=== PATIENT | male | born 1960 | race Caucasian/White ===

== ENCOUNTER → 2017-02-21 | Outpatient (CLI) | payer OTHER ==
[2017-02-21 14:07] LABS: BLOOD UREA NITROGEN 20 mg/dl (7-18); BUN/CREATININE RATIO 16.5 (10-20)
[2017-02-21 14:12] LABS: CHOLESTEROL 225 mg/dl (0-200); CHOLESTEROL/HDL RATIO 7.3; HDL CHOLESTEROL 31 mg/dl; LDL CHOLESTEROL CALCULATED 140 mg/dl; PROSTATE SPECIFIC ANTIGEN 0.469 ng/ml (0.000-4.000); TRIGLYCERIDES 272 mg/dl (0-150); VERY LOW DENSITY LIPOPROT CALC 54 mg/dl
== END | disposition home or self-care (01) ==
LOC: C.LABBC 09:56
PROVIDERS: ATTEND Urology
DX: N40.1 Benign prostatic hyperplasia with lower urinary tract symptoms (principal); N52.9 Male erectile dysfunction, unspecified; E78.5 Hyperlipidemia, unspecified; Z11.59 Encounter for screening for other viral diseases

== ENCOUNTER 2025-01-27 10:39 | Inpatient (IN) ==
--- NOTE | 2025-01-27 11:32 | Emergency Department Note ---
History of Present Illness General Chief complaint: Pain (Generalized) Stated complaint: JOINT PAIN Time Seen by Provider: 01/27/25 11:14 History of Present Illness Provider complaint: myalgias Maximum Pain Intensity: 10 65-year-old male presents emergency department for myalgias. Patient states "every joint in my body is hurting". Patient reports bilateral elbow pain, bilateral wrist pain, bilateral knee pain, bilateral ankle pain, bilateral shoulder pain. Patient reports a sore throat. He reports a headache. He reports nausea. He reports no abdominal pain. Patient reports he was recently started on doxycycline for a tick bite. Patient states he took oxycodone but then became delirious. He reports a new rash on his upper extremities. Home Medications Medication Instructions Recorded Confirmed Type sertraline 100 mg tablet (Zoloft) 100 mg PO DAILY 07/24/23 01/27/25 History cyclobenzaprine 10 mg tablet 10 mg PO DAILY PRN muscle spasm, 10/20/24 01/27/25 Rx pain #90 tabs oxycodone 5 mg tablet 5 mg PO Q6H PRN pain #15 tabs 01/26/25 01/27/25 Rx albuterol sulfate 90 mcg/actuation 2 puff inhalation QID PRN Wheezing 01/27/25 01/27/25 History aerosol inhaler finasteride 5 mg tablet 5 mg PO DAILY 01/27/25 01/27/25 History sulindac 200 mg tablet 0 mg PO BID 01/27/25 01/27/25 History Allergies Allergy/AdvReac Type Severity Reaction Status Date / Time No Known Allergies Allergy Verified 01/02/25 09:35 Past Med/Surg History Problem List (Updated 01/27/25 @ 15:55 by Ej Veronica MD) At high risk for tick borne illness (Acute) Elevated troponin (Acute) Thrombocytopenia (Acute) Pancytopenia (Acute) Joint pain (Acute) Anaplasmosis (Acute) Arthritis Lumbar facet joint syndrome Arthralgia Hand arthritis Spinal stenosis of lumbar region Cervical spinal stenosis Lumbar radiculopathy Myofascial pain Cervical facet joint syndrome Cervicalgia History of left hip replacement August 2021 Dyslipidemia Anxiety Menieres disease BPH without obstruction/lower urinary tract symptoms (Acute) Hearing loss Erectile dysfunction (Acute) Medical History Tinnitus Surgical History History of prostate surgery S/P nasal surgery Family History Mother Diabetes Lung disease Father Depression Social History Smoking Status: Former smoker Tobacco Type: Cigarettes Do You Dip or Chew Tobacco: No; Hx Alcohol Use: No Preferred Language: Italian marital status: current occupational status: employed Feels Safe at Home: Yes Physical Exam Vital Signs Vital Signs - 24 hr 01/27/25 10:49 01/27/25 11:24 01/27/25 12:00 Temperature 37.6 C H Temperature Source Oral Pulse Rate 78 82 82 Respiratory Rate 20 30 H 15 Respiratory Effort / Characteristics Non-Labored Spontaneous Respiratory Depth Normal Respiratory Pattern Regular Blood Pressure 106/70 128/79 Blood Pressure Mean 82 86 Pulse Oximetry 96 96 Oxygen Delivery Method Room Air Sepsis Recent Fever Within 48 Hours No Sepsis New/Unexplained Change in Mental Status N/A Sepsis Action Taken by Nursing No Action Required 01/27/25 12:09 01/27/25 12:09 01/27/25 12:13 Temperature 37.0 C Temperature Source Oral Pulse Rate 88 Respiratory Rate 25 H Respiratory Effort / Characteristics Respiratory Depth Respiratory Pattern Blood Pressure 118/68 Blood Pressure Mean 81 Pulse Oximetry 98 95 Oxygen Delivery Method Room Air Sepsis Recent Fever Within 48 Hours Sepsis New/Unexplained Change in Mental Status Sepsis Action Taken by Nursing 01/27/25 12:44 01/27/25 13:37 Temperature Temperature Source Pulse Rate 91 H 82 Respiratory Rate 13 Respiratory Effort / Characteristics Respiratory Depth Respiratory Pattern Blood Pressure 94/61 L Blood Pressure Mean 72 Pulse Oximetry 94 Oxygen Delivery Method Sepsis Recent Fever Within 48 Hours Sepsis New/Unexplained Change in Mental Status Sepsis Action Taken by Nursing Physical Exam GENERAL: He is oriented to person, place, and time. He appears well-developed and well-nourished. HENT: Exam performed. - Head: Normocephalic and atraumatic. - Mouth/Throat: The oropharynx is clear and moist. No trismus in the jaw. No dental abscesses or uvula swelling. No oropharyngeal exudate or tonsillar abscesses. EYES: Conjunctivae and EOM are normal. Pupils are equal, round, and reactive to light. Right eye exhibits no discharge. Left eye exhibits no discharge. No scleral icterus. No photophobia. NECK: Normal range of motion. Neck supple. No JVD present. No rigidity. No tracheal deviation and normal range of motion present. No Brudzinski's sign. CV: Normal rate, regular rhythm, normal heart sounds and intact distal pulses. There is no peripheral edema. Palpable radial pulses bue. PULM/CHEST: Effort normal and breath sounds normal. No respiratory distress. No stridor. He has no wheezes. He has no rales. ABD: The abdomen is soft. There is no tenderness. There is no rebound, no guarding. NEURO: He is alert and oriented to person, place, and time. He has normal strength. No cranial nerve deficit or sensory deficit.GCS eye subscore is 4. GCS verbal subscore is 5. GCS motor subscore is 6. Cerebellar tests wnl. SKIN: Urticaria over the patient's left upper extremity. No purpural lesions. Course Course 1114: The patient was evaluated in room B7. A complete history and physical exam was performed Cardiac monitoring: An order was placed for continuous cardiac monitoring. The monitor shows a rate of 80 with sinus rhythm interpreted by me External medical records reviewed. Patient was seen in the emergency department yesterday. Patient had blood work done showed a mild leukopenia of 4.5 to a thrombocytopenia of 119/1.2 AST 49 ALT 102 alkaline phosphatase 238. Patient's procalcitonin was 0.52. Urinalysis was negative. Peripheral smear for anaplasmosis and babesiosis was negative as well as screen. Patient was continued on his doxycycline for presumed anaplasmosis. 1300: Vital signs stable. Labs show a worsening thrombocytopenia with platelet count down to 108 from 119 yesterday. Coagulation studies are within normal limits. High-sensitivity troponin up to 46.8 from 9.7 yesterday. Patient denies any chest pain. Liver function tests appear mildly improved with the ALT down to 78 from 102. Procalcitonin is elevated to 0.77 up from 0.52 today. Patient continues to have no meningeal signs. Given the patient's elevated procalcitonin and elevated troponin [facility] Rocephin and doxycycline ordered for the patient. Administered Medications Discontinued Medications Diphenhydramine HCl (Diphenhydramine 50 Mg/Ml Vial) 25 mg IV NOW STA Stop: 01/27/25 11:35 Last Admin: 01/27/25 11:57 Dose: 25 mg Documented By: KAILEY Sodium Chloride (Nss) 1,000 mls @ 999 mls/hr IV .Q1H1M ONE Stop: 01/27/25 12:17 Last Infusion: 01/27/25 13:32 Dose: Infused Documented By: Admin: 01/27/25 11:56 Dose: 999 mls/hr Documented By: KAILEY Acetaminophen (Ofirmev) 1,000 mg in 100 mls @ 400 mls/hr IV NOW STA Stop: 01/27/25 12:01 Last Infusion: 01/27/25 13:07 Dose: Infused Documented By: Admin: 01/27/25 11:56 Dose: 400 mls/hr Documented By: KAILEY Ceftriaxone Sodium (Rocephin) 2,000 mg in 50 mls @ 100 mls/hr IV NOW STA Stop: 01/27/25 13:23 Last Infusion: 01/27/25 13:49 Dose: Infused Documented By: Admin: 01/27/25 13:14 Dose: 100 mls/hr Documented By: KAILEY Doxycycline Hyclate 100 mg/ (Dextrose) 100 mls @ 50 mls/hr IV NOW STA Stop: 01/27/25 14:53 Last Infusion: 01/27/25 15:38 Dose: Infused Documented By: Admin: 01/27/25 13:37 Dose: 50 mls/hr Documented By: KAILEY Ketorolac Tromethamine (Ketorolac Tromethamine 15 Mg/Ml Vial) 15 mg IV NOW STA Stop: 01/27/25 11:35 Last Admin: 01/27/25 11:58 Dose: 15 mg Documented By: KAILEY Metoclopramide HCl (Metoclopramide Hcl Inj 5 Mg/Ml 2 Ml Vial) 5 mg IV ONE ONE Stop: 01/27/25 11:35 Last Admin: 01/27/25 11:58 Dose: 5 mg Documented By: KAILEY Medical Decision Making Laboratory Data Attestation: I reviewed the patient's lab results. 01/27/25 11:30 01/27/25 11:30 Lab Results 07/15/25 07/15/25 07/15/25 Range/Units 11:30 11:33 13:42 WBC 5.31 (4.8-10.8) K/ul RBC 4.32 L (4.70-6.10) M/uL Hgb 12.9 L (14.0-18.0) g/dl Hct 37.7 L (42.0-52.0) % MCV 87.3 (80.0-100.0) fL MCH 29.9 (25.0-34.0) pg MCHC 34.2 (32.0-36.0) g/dL RDW Std Deviation 43.4 (36.4-46.3) fL RDW Coeff of Robb 13.6 (11.5-14.5) % Plt Count 108 L (130-400) K/uL MPV 9.9 (9.4-12.4) fL Immature Gran % (Auto) 0.6 % Neut % (Auto) 79.0 % Lymph % (Auto) 9.8 % Garden % (Auto) 6.8 % Eos % (Auto) 3.6 % Baso % (Auto) 0.2 % Neut # (Auto) 4.20 (1.40-6.50) K/uL Lymph # (Auto) 0.52 L (1.20-3.40) K/uL Garden # (Auto) 0.36 (0.11-0.59) K/uL Eos # (Auto) 0.19 (0.00-0.50) K/uL Baso # (Auto) 0.01 (0.00-0.20) K/uL Immature Gran # (Auto) 0.03 (0.01-0.20) K/uL PT Cancelled 11.7 INR Cancelled 1.1 APTT Cancelled 39 H PTT Ratio Cancelled 1.4 Sodium 134 L (136-145) mmol/L Potassium 4.4 (3.5-5.1) mmol/L Chloride 99 (98-107) mmol/L Carbon Dioxide 27 (21-32) mmol/L Anion Gap 8 (3-11) BUN 17 (6-23) mg/dl Creatinine 1.10 (0.6-1.4) mg/dl Est Cr Clr Drug Dosing 92.2 ml/min eGFR 74.50 BUN/Creatinine Ratio 15.5 (10-20) Glucose 107 H (70-99(Fasting)) mg/dl Lactate 1.6 (0.4-2.0) mmol/L Calcium 8.9 (8.6-10.3) mg/dl Magnesium 2.1 (1.7-2.4) mg/dl Total Bilirubin 0.9 (0.2-1.0) mg/dl Direct Bilirubin 0.3 H (0-0.2) mg/dl AST 38 (13-39) U/L ALT 78 H (7-52) U/L Alkaline Phosphatase 235 H (34-104) U/L Lactate Dehydrogenase 360 H (86-244) U/L Total Creatine Kinase 99 (30-223) U/L Troponin I High Sens 46.8 H D 61.9 H* D (0-20) pg/ml Total Protein 7.2 (6.0-8.3) gm/dl Albumin 3.7 (3.4-5.0) gm/dl Procalcitonin 0.77 H (0-0.5) ng/ml Adenovirus (PCR) Not Detected (NotDetected) Anaplasma Smear See Comment Babesia Smear See Comment B. pertussis DNA (PCR) Not Detected (NotDetected) B.parapertussis DNA PCR Not Detected (NotDetected) C. pneumoniae DNA (PCR) Not Detected (NotDetected) Coronavirus OC43 (PCR) Not Detected (NotDetected) Coronavirus HKU1 (PCR) Not Detected (NotDetected) Coronavirus 229E (PCR) Not Detected (NotDetected) SARS-CoV-2 (PCR) Not Detected (NotDetected) Coronavirus NL63 (PCR) Not Detected (NotDetected) Monoscreen Negative (Negative) Human Metapneumovir PCR Not Detected (NotDetected) Influenza Type A (PCR) Not Detected (NotDetected) Influenza Type B (PCR) Not Detected (NotDetected) M. pneumoniae (PCR) Not Detected (NotDetected) Parainfluenza 1 (PCR) Not Detected (NotDetected) Parainfluenza 2 (PCR) Not Detected (NotDetected) Parainfluenza 3 (PCR) Not Detected (NotDetected) Parainfluenza 4 (PCR) Not Detected (NotDetected) RSV (PCR) Not Detected (NotDetected) Entero/Rhino (PCR) Not Detected (NotDetected) Group A Strep (PCR) NOT DETECTED (NotDetected) Imaging Data Attestation: I personally reviewed and interpreted this imaging study as follows: My Impression: Chest x-ray negative. Airway clear. No pneumothorax. No consolidation. No cardiomegaly or cephalization.. No free air under the diaphragm. No fractures of the skeletal structures. Radiologist's Impression: Chest X-Ray 01/27/25 11:17 XR chest 1V portable CLINICAL HISTORY: Sepsis COMPARISON STUDY: 01/26/2025 FINDINGS: Heart size and pulmonary vasculature are normal. No consolidation or pleural effusion. No pneumothorax. IMPRESSION: No acute findings. ACT 112: Negative or not required by law. Electronically signed by: Gibson Donato M.D. 01/27/2025 11:[address] 01/27/25 11:39 CT head/brain wo con CLINICAL HISTORY: davidson. TECHNIQUE: Multiple axial CT images of the head were obtained without contrast. A dose lowering technique was utilized adhering to the principles of ALARA. CT DOSE: 625.8 mGy.cm COMPARISON: 11/18/2021 FINDINGS: Stable left globus pallidus calcification. No intracranial hemorrhage seen. No mass effect, midline shift, or hydrocephalus. Visualized paranasal sinuses and mastoid air cells are clear. No skull fracture seen. IMPRESSION: No acute findings. ACT 112: Negative or not required by law. The above report was generated using voice recognition software. It may contain grammatical, syntax or spelling errors. Electronically signed by: Gibson Donato M.D. 01/27/2025 12:31 PM ECG Data Attestation: I personally reviewed and interpreted this ECG as follows: Rate (beats per minute): 79 Rhythm: + normal sinus ECG Intervals/blocks: + First degree AV block, + Normal QRS and + Normal QT-c ECG ST segments: + Normal ST segments MDM Narrative 1114: The patient was evaluated in room B7. A complete history and physical exam was performed Cardiac monitoring: An order was placed for continuous cardiac monitoring. The monitor shows a rate of 80 with sinus rhythm interpreted by me External medical records reviewed. Patient was seen in the emergency department yesterday. Patient had blood work done showed a mild leukopenia of 4.5 to a thrombocytopenia of 119/1.2 AST 49 ALT 102 alkaline phosphatase 238. Patient's procalcitonin was 0.52. Urinalysis was negative. Peripheral smear for anaplasmosis and babesiosis was negative as well as screen. Patient was continued on his doxycycline for presumed anaplasmosis. 1300: Vital signs stable. Labs show a worsening thrombocytopenia with platelet count down to 108 from 119 yesterday. Coagulation studies are within normal limits. High-sensitivity troponin up to 46.8 from 9.7 yesterday. Patient denies any chest pain. Liver function tests appear mildly improved with the ALT down to 78 from 102. Procalcitonin is elevated to 0.77 up from 0.52 today. Patient continues to have no meningeal signs. Given the patient's elevated procalcitonin and elevated troponin [facility] Rocephin and doxycycline ordered for the patient. Impression & Plan Thrombocytopenia, Elevated troponin, At high risk for tick borne illness Discharge Plan Visit Data Chief Complaint: Pain (Generalized) Stated Complaint: JOINT PAIN ED Provider: Ej Veronica Discharge Problem: Thrombocytopenia, Elevated troponin, At high risk for tick borne illness Patient Disposition: Admitted As Inpatient Condition: Fair Discharge Instructions Interventions: ED Discharge Assessment Last Done: 01/27/25 14:55
--- NOTE | 2025-01-27 11:49 | XRay Report ---
XR chest 1V portable CLINICAL HISTORY: Sepsis COMPARISON STUDY: 01/26/2025 FINDINGS: Heart size and pulmonary vasculature are normal. No consolidation or pleural effusion. No p neumothorax. IMPRESSION: No acute findings. ACT 112: Negative or not required by law. Electronically signed by: Gibson Donato M.D. 01/27/2025 11:47 AM
[2025-01-27] MEDS: SODIUM CHLORIDE 0.9% 1,000 ML IV ONE (11:56)
[2025-01-27] MEDS: ACETAMINOPHEN 1,000 MG/100 ML VIAL IV STA (11:56)
[2025-01-27] MEDS: diphenhydrAMINE 50 MG/ML VIAL IV STA (11:57)
[2025-01-27] MEDS: METOCLOPRAMIDE HCL INJ 5 MG/ML 2 ML VIAL IV ONE (11:58)
[2025-01-27] MEDS: KETOROLAC TROMETHAMINE 15 MG/ML VIAL IV STA (11:58)
[2025-01-27 12:19] LABS: Alanine Aminotransferase 78.0 U/L (7-52); Alkaline Phosphatase 235.0 U/L (34-104); Anion Gap 8.0 (3-11); Bilirubin,Total 0.9 mg/dl (0.2-1.0); Blood Urea Nitrogen 17.0 mg/dl (6-23); Calcium 8.9 mg/dl (8.6-10.3); Carbon Dioxide 27.0 mmol/L (21-32); Chloride 99.0 mmol/L (98-107); Creatine Kinase 99.0 U/L (30-223); Creatinine Clr Calc Pharmacy 92.2 ml/min; Glucose 107.0 mg/dl (70-99(Fasting)); Magnesium 2.1 mg/dl (1.7-2.4); Potassium 4.4 mmol/L (3.5-5.1); Sodium 134.0 mmol/L (136-145); Total Protein 7.2 gm/dl (6.0-8.3)
--- NOTE | 2025-01-27 12:32 | CT Scan Report ---
CT head/brain wo con CLINICAL HISTORY: davidson. TECHNIQUE: Multiple axial CT images of the head were obtained without contrast. A dose lowering tech nique was utilized adhering to the principles of ALARA. CT DOSE: 625.8 mGy.cm COMPARISON: 11/18/2021 FINDINGS: Stable left globus pallidus calcification. No intracranial hemorrhage seen. No mass effect, midline shift, or hydrocephalus. Visualized paranasal sinuses and mastoid air cells are clear. No sk ull fracture seen. IMPRESSION: No acute findings. ACT 112: Negative or not required by law. The above report was generated using voice recognition software. It may contain grammatical, syntax o r spelling errors. Electronically signed by: Gibson Donato M.D. 01/27/2025 12:31 PM
[2025-01-27 12:37] LABS: Hematocrit (blood only) 37.7 % (42.0-52.0); Hemoglobin 12.9 g/dl (14.0-18.0); Mean Corpuscular Hemoglobin 29.9 pg (25.0-34.0); Mean Corpuscular Volume 87.3 fL (80.0-100.0); Platelet Count 108 K/uL (130-400); RDW Standard Deviation 43.4 fL (36.4-46.3); Red Blood Count 4.32 M/uL (4.70-6.10); White Blood Count 5.31 K/ul (4.8-10.8)
[2025-01-27 12:45] LABS: Immature Granulocytes # (auto) 0.03 K/uL (0.01-0.20); Immature Granulocytes % (auto) 0.6 %
[2025-01-27 12:49] LABS: Chlamydia pneumoniae PCR Not Detected (NotDetected); Coronavirus 229E PCR Not Detected (NotDetected); Coronavirus CoV-2 (COVID19)PCR Not Detected (NotDetected); Coronavirus HKU1 PCR Not Detected (NotDetected); Coronavirus NL63 PCR Not Detected (NotDetected); Coronavirus OC43PCR Not Detected (NotDetected); Human Metapneumovirus PCR Not Detected (NotDetected); Parainfluenza Virus 1 PCR Not Detected (NotDetected); Parainfluenza Virus 2 PCR Not Detected (NotDetected); Parainfluenza Virus 3 PCR Not Detected (NotDetected); Parainfluenza Virus 4 PCR Not Detected (NotDetected); Respiratory Syncytial VirusPCR Not Detected (NotDetected); Rhinovirus/Enterovirus PCR Not Detected (NotDetected)
[2025-01-27] MEDS: cefTRIAXone SODIUM 2,000 MG/50 ML BAG IV STA (13:14)
--- NOTE | 2025-01-27 13:25 | History & Physical Report ---
Date of Service January 27, 2025 Assessment & Plan (1) Fever and chills: (2) Arthralgia: (3) Pancytopenia: (4) At high risk for tick borne illness: Plan 65 y/o with polyarthralgias/myalgias and fevers to 101, pharyngitis, rash, headache. Started . Seen in urgent care Sunday started doxycycline suspected tickborne illness. No improvement, seen in ED yesterday. 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 Rash started after taking the doxy but has not been outside and is in non sun-exposed areas. Rash not itchy or painful no vesicles. Located R>L neck, upper back and chest, arms and thighs, no palm/soles lesions. No sick contacts. No GI or illness in past month, no penile discharge. Has had neck pain and headache but no meningeal signs on exam. # acute illness with fever, arthralgias/myalgias, headache, rash, pancytopenia. Tmax at home 101 and yesterday in ED 38.0 does not look severely ill based on vital signs and labs, but is extremely miserable with the arthralgias/myalgias. CK was low, not in rhabdo probably viral infection but could be tickborne. -consulted ID -APAP/toradol/tramadol/IV fluids. oxycodone 5 mg made him feel loopy viral - -influenza and COVID biofire negative, monospot negative -could be adenovirus -EBV and CMV serology -parvovirus B19 serology -acute HIV could present this way tickborne - expect rash with Ehrlichiosis or RMSF, anaplasmosis/babesiosis PCR pending, lyme screen neg -cont doxycycline -its possible the rash is from doxycycline since it started after the doxy could be strep pharyngitis with scarlet fever. meningococcal meningitis seems less likely and the neck pain is not very specific because he has pain all over, but consider LP. does not look like endocarditis or septic arthritis (has L hip replacement) DGI rash doesn't really look like this -rapid strep was negative, blood cultures pending -continue ceftriaxone takes sertraline, serotonin syndrome possible but doesn't explain the overall pattern well reactive arthritis - seems unlikely - no antecendent GI/ illness and wouldn't expect rash, sore throat path review blood smear pending. no renal failure, thrombocytopenia mild, rash is not characteristic, TTP unlikely. # mildly elevated HS-troponin, normal EKG - myocardial demand ischemia related to above acute illness. No chest pain and no e/o ACS -check another troponin since still trending up # history of widespread myofascial pain syndrome, osteoarthritis - has been seen by Rheumatology and followed by pain management #BPH - continue finasteride #mood disorder - continue sertraline DVT ppx - SCDs. start chemoppx if platelets stable and staying in hospital >24h History of Present Illness Chief Complaint: myalgias/arthralgias Primary Care Provider: NO PCP 65 y/o with polyarthralgias/myalgias and fevers to 101, pharyngitis, rash, headache. Arthralgia/myalgia and fever/chills started . Seen in urgent care Sunday started doxycycline suspected tickborne illness. Rash developed over the weekend, after starting doxycycline but has not been in sun. No improvement, seen in ED yesterday. 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 Rash not itchy or painful no vesicles. Located R>L neck, upper back and chest, arms and thighs, no palm/soles lesions. No sick contacts. No GI or illness in past month. Has neck pain and headache. Rocephin and doxy given in ED Allergies Allergy/AdvReac Type Severity Reaction Status Date / Time No Known Allergies Allergy Verified 01/02/25 09:35 Home Medications Medication Instructions Recorded Confirmed Type sertraline 100 mg tablet (Zoloft) 100 mg PO DAILY 07/24/23 01/27/25 History cyclobenzaprine 10 mg tablet 10 mg PO DAILY PRN muscle spasm, 10/20/24 01/27/25 Rx pain #90 tabs oxycodone 5 mg tablet 5 mg PO Q6H PRN pain #15 tabs 01/26/25 01/27/25 Rx albuterol sulfate 90 mcg/actuation 2 puff inhalation QID PRN Wheezing 01/27/25 01/27/25 History aerosol inhaler finasteride 5 mg tablet 5 mg PO DAILY 01/27/25 01/27/25 History sulindac 200 mg tablet 0 mg PO BID 01/27/25 01/27/25 History Past Med/Surg History Problem List (Updated 01/27/25 @ 20:41 by Jenn Spivey MD) Fever and chills At high risk for tick borne illness (Acute) Elevated troponin (Acute) Thrombocytopenia (Acute) Pancytopenia (Acute) Joint pain (Acute) Anaplasmosis (Acute) Arthritis Lumbar facet joint syndrome Arthralgia Hand arthritis Spinal stenosis of lumbar region Cervical spinal stenosis Lumbar radiculopathy Myofascial pain Cervical facet joint syndrome Cervicalgia History of left hip replacement August 2021 Dyslipidemia Anxiety Menieres disease BPH without obstruction/lower urinary tract symptoms (Acute) Hearing loss Erectile dysfunction (Acute) Medical History Tinnitus Surgical History History of prostate surgery S/P nasal surgery Family History Mother Diabetes Lung disease Father Depression Social History Smoking Status: Former smoker Tobacco Type: Cigarettes Smoking End Date: 1995; Do You Dip or Chew Tobacco: No; Hx Alcohol Use: No Hx Substance Use: No Preferred Language: Bruneian Communication Ability: Effective 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 he has some aphthous ulcers on his lower inner lip, he has pharyngeal erythema without swelling RESP: normal WOB, CTAB CV: reg no mrg ABD: soft/nt/nd +BT : no lanier SKIN: warm and dry, papular rash Located R>L neck, upper back and chest, arms and thighs, no palm/soles lesions, no vesicles or pustules no joint effusions appreciated NEURO: AOx person, place, and situation. Face symmetric, speech normal, moves 4 ext spontaneously and equally. has full range of motion of his neck [id number] and chin to chest, his neck muscles are sore but no evidence of meningismus, can touch knees to chest without increase in pain Results & Data Results & Data Vital Signs (Past 12 Hours) Vital Signs Temp Pulse Resp BP Pulse Ox O2 Del Method 01/27/25 12:44 91 H 01/27/25 12:09 37.0 C 01/27/25 12:09 98 Room Air 01/27/25 12:00 82 15 128/79 96 01/27/25 11:24 82 30 H 01/27/25 10:49 37.6 C H 78 20 106/70 96 Room Air Laboratory Results 01/27/25 11:30 01/27/25 11:30 Platelets slightly decreased from yesterday HS-trop 9.7 --> 47 overnight Procal 0.52-->0.77 overnight Lyme negative, mesfin/bab smears negative Resp biofire negative Diagnostic Findings Head CT with no acute findings CXR - personally reviewed film and agree it is clear EKG - personally reviewed tracing - normal EKG PG Care Time/CCT Total # of Minutes Spent Total Time Spent with Patient: Total time spent is greater than 50% in coordination of care (as documented) at patient's floor/unit and/or counseling patient: Coding Level of Care Code 17991 INT INP/OBS CARE 3/75MIN Diagnoses Fever and chills R50.9 Arthralgia M25.50 Pancytopenia D61.818 At high risk for tick borne illness Z91.89
[2025-01-27] MEDS: DOXYCYCLINE HYCLATE 100 MG in DEXTROSE 5% MINI-B 100 ML IV STA (13:37)
--- NOTE | 2025-01-27 13:58 | Electrocardiogram Report ---
Test Reason : Blood Pressure : */* mmHG Vent. Rate : 79 BPM Atrial Rate : 79 BPM P-R Int : 204 ms QRS Dur : 92 ms QT Int : 340 ms P-R-T Axes : 40 17 26 degrees QTcB Int : 389 ms Normal sinus rhythm Normal ECG When compared with ECG of 26-Jan-2025 12:27, No significant change was found Confirmed by Tevin Mcguire ([id number]) on 01/27/2025 1:58:35 PM Referred By: REFERRED SELF Confirmed By: Tevin Mcguire
[2025-01-27 14:26] LABS: INR 1.1 (0.9-1.1); Partial Thromboplastin Time 39 Seconds (21-31); Prothrombin Time 11.7 Seconds (9.0-12.0)
[2025-01-27] MEDS ORDERED: KETOROLAC TROMETHAMINE 15 MG/ML VIAL IM PRN (15:38)
[2025-01-27] MEDS ORDERED: ALBUTEROL HFA 8 GM INHALER INH PRN (15:38)
[2025-01-27] MEDS ORDERED: ALUMINUM/MAGNESIUM SUSP 30 ML UDC PO PRN (15:38)
[2025-01-27] MEDS ORDERED: MAGNESIUM HYDROXIDE SUSP 30 ML UDC PO PRN (15:38)
[2025-01-27] MEDS: ACETAMINOPHEN 325 MG TAB PO SCH (16:42)
[2025-01-27 17:23] LABS: EBV Nuclear Antigen IgG Ab Positive; EBV Nuclear Antigen IgG Quant > 600.0 U/mL (< 18.0)
[2025-01-27 17:24] LABS: EBV Early Antigen IgG Ab Negative (Negative); EBV Early Antigen IgG Quant 5.5 U/mL (< 9.0)
[2025-01-27 17:25] LABS: EBV IgG Quant 190.0 U/mL (< 18.0); EBV IgM Quant < 10.0 U/mL (< 36.0)
[2025-01-27] MEDS: CHLORASEPTIC (PHENOL) 1.4% SOLN 180 ML BTL MT PRN (18:02)
[2025-01-27 18:38] LABS: Appearance Urine Clear (Clear); Glucose Urine UA Negative (Negative)
[2025-01-27] MEDS: ONDANSETRON INJ 2 MG/ML 2 ML VIAL IV PRN (20:12)
[2025-01-27] MEDS: DOXYCYCLINE HYCLATE 100 MG in DEXTROSE 5% MINI-B 100 ML IV SCH (20:13)
[2025-01-27] MEDS: MELATONIN 3 MG TAB PO PRN (20:23)
[2025-01-28 04:24] LABS: Alanine Aminotransferase 66.0 U/L (7-52); Albumin Globulin Ratio 1.1 (0.9-2); Alkaline Phosphatase 200.0 U/L (34-104); Anion Gap 6.0 (3-11); Bilirubin,Total 0.8 mg/dl (0.2-1.0); Blood Urea Nitrogen 22.0 mg/dl (6-23); Calcium 7.9 mg/dl (8.6-10.3); Carbon Dioxide 25.0 mmol/L (21-32); Chloride 98.0 mmol/L (98-107); Creatinine Clr Calc Pharmacy 89.5 ml/min; Globulin 2.8 gm/dl (2.5-4.0); Glucose 113.0 mg/dl (70-99(Fasting)); Potassium 4.2 mmol/L (3.5-5.1); Sodium 129.0 mmol/L (136-145); Total Protein 5.8 gm/dl (6.0-8.3)
[2025-01-28 04:39] LABS: Hematocrit (blood only) 31.0 % (42.0-52.0); Hemoglobin 10.6 g/dl (14.0-18.0); Mean Corpuscular Hemoglobin 30.0 pg (25.0-34.0); Mean Corpuscular Volume 87.8 fL (80.0-100.0); Platelet Count 86 K/uL (130-400); RDW Standard Deviation 45.0 fL (36.4-46.3); Red Blood Count 3.53 M/uL (4.70-6.10); White Blood Count 3.77 K/ul (4.8-10.8)
[2025-01-28 04:55] LABS: Dohle Bodies 1+; Immature Granulocytes # (auto) 0.04 K/uL (0.01-0.20); Immature Granulocytes % (auto) 1.1 %
[2025-01-28] MEDS: SERTRALINE HCL 100 MG TABLET PO SCH (08:15)
[2025-01-28] MEDS: FINASTERIDE 5 MG TAB PO SCH (08:15)
[2025-01-28] MEDS: CYCLOBENZAPRINE HCL 10 MG TAB PO PRN (08:17)
[2025-01-28] MEDS: POLYETHYLENE (MIRALAX) 17 GM PACK PO PRN (08:18)
[2025-01-28] MEDS: KETOROLAC TROMETHAMINE 15 MG/ML VIAL IV PRN (10:13)
[2025-01-28 11:49] LABS: Hep B Core Total Antibody Negative (Negative)
[2025-01-28 12:03] LABS: Hep B Surface Ag with confirm Negative (Negative)
[2025-01-28 12:09] LABS: Hep C Ab Rflx HepCQuant RNA Negative (Negative)
[2025-01-28 12:16] LABS: Treponema pallidum RflxConfirm Negative (Negative)
[2025-01-28] MEDS: cefTRIAXone SODIUM 2,000 MG/50 ML BAG IV SCH (12:50)
--- NOTE | 2025-01-28 13:14 | Electrocardiogram Report ---
Test Reason : Blood Pressure : */* mmHG Vent. Rate : 84 BPM Atrial Rate : 84 BPM P-R Int : 196 ms QRS Dur : 104 ms QT Int : 350 ms P-R-T Axes : 56 43 32 degrees QTcB Int : 413 ms Normal sinus rhythm Normal ECG When compared with ECG of 27-Jan-2025 12:03, No significant change was found Confirmed by Tevin Mcguire ([id number]) on 01/28/2025 1:13:39 PM Referred By: REFERRED SELF Confirmed By: Tevin Mcguire
--- NOTE | 2025-01-28 13:30 | Infectious Disease Consult ---
Date of Consultation January 28, 2025 Assessment & Plan (1) Fever and chills: (2) Thrombocytopenia: (3) Pancytopenia: (4) Joint pain: (5) Arthralgia: Plan ID Problem List: # Fever, arthralgias/myalgias # Rash # Sore throat # Elevated transaminases # Pancytopenia # History of widespread myofascial pain syndrome, osteoarthritis follows with rheumatology and pain management # History of positive RF (76) in 05/2023 Impression: Jarvis Campbell is a 65-year-old man with history of OA s/p L hip replacement 2020 and arthralgais of bilateral hands/feet presumed to be from OA (though follows with rheum, history of + rheumatoid factor), chronic cervical pain undergoing trigger point injections, BPH, who presents to [facility] on 01/26 with polyarthralgias, myalgias, fevers, and rash, after having recently been started on doxycycline on Sat 01/24 for suspected tickborne illness. ID is consulted for fever and rash. The patient began having fevers, chills, polyarthralgias, and myalgias, starting on 01/22, and he reports that his symptoms came on very rapidly. This progressed to include significant sweating and shaking. He was seen in urgent care on Sat 01/24 and was started on doxycycline for suspected tickborne illness. He developed a sore throat over the weekend (he believes after doxycycline) where he feels 10/10 pain with swallowing and also feels like his lips are slightly painful. He also developed neck pain and a headache. He also developed a rash over the weekend (after having started doxycycline) but reports that he has not been in direct sun. The rash is located in his R > L neck, upper back, and chest, trunk, arms, and thighs (including areas that were covered by clothing); no lesions on palms/soles, nonpruritic, non-painful, and without vesicles. He has continued to have fevers (Tmax 101F at home) and his rash did not improve. He has been on doxycycline since 01/24 and has continued to take this medication without improvement. In the ED, T38, WBC 4.52 (ALC low at 270) Hgb 13.9 plt 119 Cr 1.12 AST 49 ALT 102 procal 1.10. CK 85. UA with 0-5 WBCs, 0-2 RBCs. EKG with NSR, ND [address] head without acute findings, CXR clear. He was started on ceftriaxone and continued on doxycycline. Also with mildly elevated troponin, currently attributed to demand ischemia. On 01/28, T37.4 in AM, his labs showed worsening pancytopenia with WBC 3.77 (ALC 300) Hgb 10.6 plt 86. AST 40 ALT 66 ALP 200. He reports that he feels much worse since his symptoms started, and has significant aching pains in every joint especially his bilateral shoulders, hips, and knees, to the point that it is difficult to walk. Reports a dry cough, some nausea but no abdominal pain or diarrhea; no chest pain, no numbness and tingling; some dizziness. He has ongoing throat pain and profuse sweating. He is frequently outdoors[place] He recalls several mosquito bites. Has not noticed any tick bites. 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 No sick contacts, no contact with young children. He is currently sexually active with his girlfriend, who is a new partner as of ~5 months prior (last sexually active 01/16). No GI/ symptoms in the past month, no penile discharge. He has a pet dog; no other exposure to animals including no livestock or wild animals. No recent travel out of the [facility]. He last hunted during deer season (May 2024) and last [place] 01[place]. The patient was evaluated by outpatient rheumatology starting in 05/2023 for 8 years of pain of multiple joints, including the L > R hips (s/p L hip replacement in 2020), and pain in the bilateral hands and bilateral feet. He has been presumed to have osteoarthritis, however testing in 2022 did show a pos itive rheumatoid factor (76) raising questions about underlying rheumatoid arthritis. He has been having axial neck tenderness, undergoing trigger point injections to his cervical muscles (01/02/25 underwent ropivacaine/Kenalog/ketorolac injections to his left upper cervical paravertebral, left scalene, left levator scapulae, mid trapezius, right cervical paravertebral, right scalene, and right trapezius muscles). Discussion The patient presents with fevers, diffuse arthralgias/myalgias, sore throat, headaches, rash, and sweating, of unclear etiology. The fevers are low-grade. He has pancytopenia with mild leukopenia and significant thrombocytopenia. Normal CK. Exam from 01/28 showing maculopapular rash, especially confluent in neck (sparing face) and shoulders; more distinct scattered lesions on trunk, chest, upper thighs. Nonpruritic/nontender. Sparing palms and soles. Hands with swollen appearance. Bilateral knees very tender to palpation but without obvious joint effusion/swelling/erythema. Maybe bottom lip is a bit swollen, no oropharyngeal erythema. The cause of this patients presentation is currently unclear. Ddx includes tickborne illness (though no improvement and having worsening after several days of doxycycline), viral infection, atypical bacterial/fungal infection, reactive arthritis (though no specific GI/ symptoms recently), other rheumatologic/inflammatory process (noting pt with chronic arthritis and cervical pain and has a history of + RF) including adult-onset Stills disease. Pt with new girlfriend of ~5 months and thus will send for HIV and STI testing including GC/CT mycoplasma. His presentation seems less likely to represent a serious typical bacterial infection/bacterial sepsis, given that it has occurred for many days and that he is otherwise clinically stable (albeit highly symptomatic). Thus far, workup includes negative Lyme screen, negative Anaplasma/Babesia sm ear, negative HIV, negative monospot, and negative rapid Strep. Many infectious studies are still pending as below. The patients fingers appear to have dactylitis. Given the patients history of chronic arthritis (attributed to OA, but with + RF and with worsening axial/cervical symptoms recently), suspect that the patient could have an underlying rheumatologic condition such as RA. Also consider possibility of adult-onset Stills disease, and would recommend rheumatology evaluation. Can continue ceftriaxone and doxycycline for now, but may stop ceftriaxone in the coming 1-2 days if BCx remain NGTD. Considered that patient is not currently covered for babesiosis, though it would not explain all of the patients symptoms (sore throat, rash, etc.). If ongoing fevers, consider CT C/A/P for further evaluation. though pt does not have specific localizing symptoms. Recommendations: - Continue ceftriaxone for now, likely stop if BCx remain NGTD for 48h - Continue doxycycline for now - Send HIV/HIV RNA, Histo UrAg, Syphilis Ab, Rickettsial panel, HCV Ab, hep B testing, WNV serum IgM and PCR, GC/CT urine, Mycoplasma genitalium, JC, ANCA, RF, ferritin - F/u: Babesia PCR, parvovirus B19 Ab, CMV Ab, Q fever Ab - If ongoing fevers, consider CT C/A/P - Recommend rheumatology consult including for evaluation of possible Stills disease ID will continue to follow. Ernestine Burgess MD, S Infectious Diseases [facility] Connect direct line: [phone] Consultation Information Consultation was provided via telemedicine using two-way real-time interactive telecommunication between the patient and the telemedicine provider. For the duration of the visit, the provider was performing the assessment from a different facility than the patient. This includesuse of bluetooth stethoscope forauscultationperformed by the telepresenter that the telemedicine provider can hear if described in the physical exam. [facility] contact information: Please call [facility] Call Center . (Phone Number For Physician Use Only) After establishing a telemedicine visit, patient was: Patient was verified with two unique identifiers, Patient/authorized rep acknowledged consent and understanding and Gave permission to continue telehealth session Time Spent with Patient: Initial => 75 min History of Present Illness Reason for Consultation: Fever and rash Attending Physician: Kourtney Man MD History of Present Illness Jarvis Campbell is a 65-year-old man with history of OA s/p L hip replacement 2020 and arthralgais of bilateral hands/feet presumed to be from OA (though follows with rheum, history of + rheumatoid factor), chronic cervical pain undergoing trigger point injections, BPH, who presents to [facility] on 01/26 with polyarthralgias, myalgias, fevers, and rash, after having recently been started on doxycycline on Sat 01/24 for suspected tickborne illness. ID is consulted for fever and rash. The patient began having fevers, chills, polyarthralgias, and myalgias, starting on 01/22, and he reports that his symptoms came on very rapidly. This progressed to include significant sweating and shaking. He was seen in urgent care on Sat 01/24 and was started on doxycycline for suspected tickborne illness. He developed a sore throat over the weekend (he believes after doxycycline) where he feels 10/10 pain with swallowing and also feels like his lips are slightly painful. He also developed neck pain and a headache. He also developed a rash over the weekend (after having started doxycycline) but reports that he has not been in direct sun. The rash is located in his R > L neck, upper back, and chest, trunk, arms, and thighs (including areas that were covered by evelin thing); no lesions on palms/soles, nonpruritic, non-painful, and without vesicles. He has continued to have fevers (Tmax 101F at home) and his rash did not improve. He has been on doxycycline since 01/24 and has continued to take this medication without improvement. In the ED, T38, WBC 4.52 (ALC low at 270) Hgb 13.9 plt 119 Cr 1.12 AST 49 ALT 102 procal 1.10. CK 85. UA with 0-5 WBCs, 0-2 RBCs. EKG with NSR, ND [address] head without acute findings, CXR clear. He was started on ceftriaxone and continued on doxycycline. Also with mildly elevated troponin, currently att ributed to demand ischemia. On 01/28, T37.4 in AM, his labs showed worsening pancytopenia with WBC 3.77 (ALC 300) Hgb 10.6 plt 86. AST 40 ALT 66 ALP 200. He reports that he feels much worse since his symptoms started, and has significant aching pains in every joint especially his bilateral shoulders, hips, and knees, to the point that it is difficult to walk. Reports a dry cough, some nausea but no abdominal pain or diarrhea; no chest pain, no numbness and tingling; some dizziness. He has ongoing throat pain and profuse sweating. He is frequently outdoors. [place]. He recalls several mosquito bites. Has not noticed any tick bites. 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 No sick contacts, no contact with young children. He is currently sexually active with his girlfriend, who is a new partner as of ~5 months prior (last sexually active 01/16). No GI/ symptoms in the past month, no penile discharge. He has a pet dog; no other exposure to animals including no livestock or wild animals. No recent travel out of the [facility]. He last hunted during deer season (May 2024) and last went kayaking in [facility] over 01/16 weekend. The patient was evaluated by outpatient rheumatology starting in 05/2023 for 8 years of pain of multiple joints, including the L > R hips (s/p L hip replacement in 2020), and pain in the bilateral hands and bilateral feet. He has been presumed to have osteoarthritis, however testing in 2022 did show a positive rheumatoid factor (76) raising questions about underlying rheumatoid arthritis. He has been having axial neck tenderness, undergoing trigger point injections to his cervical muscles (01/02/25 underwent ropivacaine/Kenalog/ketorolac injections to his left upper cervical paraverteb ral, left scalene, left levator scapulae, mid trapezius, right cervical paravertebral, right scalene, and right trapezius muscles). Allergies Allergy/AdvReac Type Severity Reaction Status Date / Time No Known Allergies Allergy Verified 01/02/25 09:35 Home Medications Medication Instructions Recorded Confirmed Type sertraline 100 mg tablet (Zoloft) 100 mg PO DAILY 07/24/23 01/27/25 History cyclobenzaprine 10 mg tablet 10 mg PO DAILY PRN muscle spasm, 10/20/24 01/27/25 Rx pain #90 tabs oxycodone 5 mg tablet 5 mg PO Q6H PRN pain #15 tabs 01/26/25 01/27/25 Rx albuterol sulfate 90 mcg/actuation 2 puff inhalation QID PRN Wheezing 01/27/25 01/27/25 History aerosol inhaler finasteride 5 mg tablet 5 mg PO DAILY 01/27/25 01/27/25 History sulindac 200 mg tablet 0 mg PO BID 01/27/25 01/27/25 History Patient History Medical History Tinnitus Surgical History History of prostate surgery S/P nasal surgery Family History Mother Diabetes Lung disease Father Depression Social History Smoking Status: Former smoker Tobacco Type: Cigarettes Smoking End Date: 1995; Do You Dip or Chew Tobacco: No; Hx Alcohol Use: No Hx Substance Use: No Preferred Language: Belarusian Communication Ability: Effective Toucher Up Required: No Beliefs That Will Affect Care: None marital status: Current Living Situation: Alone current occupational status: employed Other Information That Helps Us Care for You: Yes (Left hip replacement in 2021.) Feels Safe at Home: Yes Safety Concerns: Feels Safe At This Time Assistive Devices: None Physical Exam Physical Exam: Exam obtained with assistance of an in-person telepresenter General: Uncomfortable-appearing, no acute distress, diaphoretic HEENT: Conjunctivae non-injected, sclerae anicteric, MMM. Perhaps bottom lip is a bit swollen, no oropharyngeal erythema or lesions. No thrush. Resp: Respirations nonlabored. Abd: Soft, nontender, nondistended. Back: No tenderness to palpation along spine Ext: Bilateral knees very tender to palpation but without obvious joint effusion/swelling/erythema. Skin: Maculopapular rash, especially confluent in neck (sparing face) and shoulders; more distinct scattered lesions on trunk, chest, upper thighs. Nonpruritic/nontender. Sparing palms and soles. Bilateral hands appear swollen. Neuro: Alert & interactive. Grossly non-focal. Psych: Pleasant, appropriate. Results & Data Vital Signs (Past 12 Hours) Vital Signs Temp Pulse Pulse Resp BP Pulse Ox O2 Del Method 01/28/25 12:53 36.7 C 75 16 92/58 L 98 Room Air 01/28/25 08:12 37.1 C 80 16 104/64 98 Room Air 01/28/25 07:30 Room Air 01/28/25 07:10 37.4 C 82 19 108/68 98 Room Air Diagnostic Findings Micro Data: 01/28 Histo UrAg: PEND 01/28 JC: PEND; ANCA: PEND; RF: PEND 01/28 GC/CT urine: PEND 01/28 Syphilis Ab: PEND 01/28 HIV: neg 01/28 WNV Ab: PEND; WNV PCR: PEND 01/28 Q fever Ab (repeat): PEND 01/28 Typhus fever Ab (repeat): PEND 01/28 Rickettsial Ab panel: PEND 01/28 M. genitalium ANNE: PEND 01/28 hep C Ab: PEND 01/28 hep B core total Ab: neg; HBsAg: PEND; HBsAb: PEND 01/27 parvovirus Ab: PEND 01/27 CMV Ab: PEND 01/27 Babesia/Anaplasma smear: neg 01/26 Babesia/Anaplasma smear: neg 01/27 RVP: neg 01/27 group A Strep throat swab: neg 01/27 EBV Ab: Capsid IgG positive, capsid IgM neg, early Ag IgG neg, EBNA IgG positive 01/27 mono screen: neg 01/27 BCx x2: NGTD 01/26 Ehrlichia PCR: PEND 01/26 Babesia PCR: PEND 01/26 Lyme screen: neg 01/26 Typhus fever Ab: PEND 01/26 Q fever Ab: PEND Antibiotic Summary: ceftriaxone (01/27 present) doxycycline (01/24 present)
[2025-01-28] MEDS: OPTIRAY 320 100ml IV ONE (14:26)
[2025-01-28 14:41] LABS: Ferritin 1219.5 ng/ml (8-388)
--- NOTE | 2025-01-28 14:45 | CT Scan Report ---
ABDOMEN AND PELVIS CT WITH IV CONTRAST CT DOSE: 1493.32 mGy.cm HISTORY: febrile illness, elevated LFTs TECHNIQUE: Multiaxial CT images of the abdomen and pelvis were performed following the IV administrat ion of 94 cc of Optiray, A dose lowering technique was utilized adhering to the principles of ALARA. COMPARISON STUDY: None FINDINGS: The lung bases demonstrates changes consistent with UIP. There are no focal liver lesions identified. The portal vein is patent. There is no ascites. The gall bladder and bile ducts are unremarkable. There are no adrenal, pancreatic, or renal lesions are identified. There is no hydronephrosis. There is splenomegaly. There is a tiny calcification in the spleen is most likely a small granuloma. There is no aortic aneurysm or periaortic adenopathy. No bowel obstruction or free air. There is colonic diverticulosis with no evidence of diverticulitis or colitis. In the pelvis, the appendix is normal. There is no fluid in the cul-de-sac. Unopacified urinary bladd er is grossly negative although visualization is hampered by spray artifact from a left hip prosthesi s. IMPRESSION: Nonspecific splenomegaly. Bibasilar lung changes consistent with UIP. ACT 112: Negative or not required by law. The above report was generated using voice recognition software. It may contain grammatical, syntax o r spelling errors. Electronically signed by: Pippa Rodriguez M.D. 01/28/2025 2:43 PM
--- NOTE | 2025-01-28 15:56 | XCELERA ---
[id number]
--- NOTE | 2025-01-28 16:07 | Hospitalist Progress Note ---
Date of Service January 28, 2025 Assessment & Plan (1) Fever and chills: (2) Arthralgia: (3) Pancytopenia: (4) At high risk for tick borne illness: Plan 65 y/o with polyarthralgias/myalgias and fevers to 101, pharyngitis, rash, headache. Started . Seen in urgent care Sunday started doxycycline suspected tickborne illness, started doxycycline with no improvement, seen in ED yesterday. 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 Rash started after taking the doxy but has not been outside and is in non sun-exposed areas. Rash not itchy or painful no vesicles. Located R>L neck, upper back and chest, arms and thighs, no palm/soles lesions. No sick contacts. No GI or illness in past month, no penile discharge. Has had neck pain and headache but no meningeal signs on exam. # acute illness with fever, arthralgias/myalgias, headache, rash, pancytopenia. Tmax at home 101 and yesterday in ED 38.0 does not look severely ill based on vital signs and labs, but is extremely miserable with the arthralgias/myalgias. CK was low, not in rhabdo. probably viral infection but could be tickborne. Consulted ID - ddx includes tickborn illness, viral infection, atypical bacterial/fungal infection, reactive arthritis or other rheumatologic process - concern for rheumatologic process with + RF, ? Stills disease - STI testing pending Rheumatology consulted Blood cultures negative at 24 hours - continue ceftriaxone under negative x 48 hours Peripheral smear unrevealing -APAP/toradol/tramadol/IV fluids. oxycodone 5 mg made him feel loopy viral - -influenza and COVID biofire negative, monospot negative. EBV indicative of past infection. HIV negative Pending: CMV serology, parvovirus B19 serology -acute HIV could present this way tickborne - expect rash with Ehrlichiosis or RMSF, anaplasmosis/babesiosis PCR pending, lyme screen neg Doxycyline stopped. Started empiric azithromycin and atoviquone for possible babieosis #thrombocytosis, elevated LDH, elevated LFTs and with drop in hgb, concern for hemolysis empiric babesiosis tx as above trend CBC and CMP #hyponatremia likely related to acute illness hydrate with NSS trend with AM labs # mildly elevated HS-troponin, normal EKG - myocardial demand ischemia related to above acute illness. No chest pain and no e/o ACS Troponin peaked at 435, echo without Regional wall motion abnormalities. Patient reports normal heart cath 07/2024 at [facility] # history of widespread myofascial pain syndrome, osteoarthritis - has been seen by Rheumatology and followed by pain management #BPH - continue finasteride #mood disorder - continue sertraline DVT ppx - SCDs. avoiding chemical with dropping platelets at this time Dispo: continued inpatient stay for further workup and rheumatology consultation Discussed case with ID and rheum Admission and Anticipated Discharge Date Admission Date: January 27, 2025 Supervising Physician Co-Signing Physician Notes PA Supervision Note: I did not personally see or examine the patient today, but I verified all bell points of LATESHA Damon's assessment and plan with the following exceptions/additions: None Subjective Patient seen lying in bed - looks very uncomfortbale. Reporting pain all over lots of chills and sweats has been on doxycyline for 5 days without improvement poor appetite but has been eating Recent cardiac workup including cath - did not require stents or any medication changes Review of Systems Review of Systems: All systems reviewed & are unremarkable except as noted in Subjective Physical Exam Physical Exam: General: NAD, VS as above HEENT: MM moist, no leisions or erythema in the oral cavity Resp: normal respiratory effort, lungs clear to auscultation CV: RRR, no murmur, Abd: normal bowel sounds, non tender, no hepatosplenomegaly Extremities: Moves all extremities, no edema Neuro: A&O x3, Skin: intact, diaphoretic. Rash more prevalent on the top of his chest, with some spots on his anterior thighs Results & Data Results & Data Vital Signs (Past 12 Hours) Vital Signs Temp Pulse Pulse Resp BP Pulse Ox O2 Del Method 01/28/25 15:12 97.3 F L 69 18 100/63 97 Room Air 01/28/25 12:53 98.1 F 75 16 92/58 L 98 Room Air 01/28/25 08:12 98.8 F 80 16 104/64 98 Room Air 01/28/25 07:30 Room Air 01/28/25 07:10 99.3 F 82 19 108/68 98 Room Air Laboratory Results CBC and chemistry reviewed Troponin reviewed, LDH reviewed CRP and ESR reviewed [facility] Diagnostic Findings CT A/P reviewed PG Care Time/CCT Total # of Minutes Spent Total Time Spent with Patient: Total time spent is greater than 50% in coordination of care (as documented) at patient's floor/unit and/or counseling patient: Coding Level of Care Code 24283 SUB INP/OBS CARE 3/50MIN Diagnoses Fever and chills R50.9 Arthralgia M25.50 Pancytopenia D61.818 At high risk for tick borne illness Z91.89
[2025-01-28] MEDS: SODIUM CHLORIDE 0.9% 1,000 ML IV SCH (18:31)
[2025-01-28] MEDS: AZITHROMYCIN 500 MG/255 ML BAG IV SCH (18:31)
[2025-01-28] MEDS: ATOVAQUONE 750 MG/5 ML UDC PO SCH (18:32)
--- NOTE | 2025-01-28 21:28 | Rheumatology Consultation ---
Rheumatology Consultation DOS January 28, [address] Man Reason for Consultation systemic inflammatory process Assessment & Plan (1) Arthralgia: Joint pain location: unspecified Qualified Code(s): M25.50 - Pain in unspecified joint (2) Fever and chills: (3) Myalgia: (4) Rash: (5) Pancytopenia: (6) LFT elevation: Plan This patient is experiencing systemic inflammatory process. Timeline is suggestive of an infectious type process whether it be viral, tickborne, or othe r. He did not respond to doxycycline and antibiotics have been adjusted Await additional data with the ID workup and tests that are currently pending Timeline is a bit abrupt for Adult Onset Stills Disease and often leukocytosis will be seen. Also, do not identify periodic fevers documented since admission. However with his rash, arthralgias and LFTs, will keep Stills in mind moving forward pending results of additional diagnostic testing. Need to monitor CBC. Current pancytopenia likely a result of potential infectious process, but if worsening counts are noted, consider bone marrow bi opsy. [facility]H often will have a higher ferritin but if he declines and counts remain poor, may need to pursue bone marrow and further investigation into bone marrow etiologies His previous rheumatoid factor is noted but this is not a presentation of rheumatoid arthritis. ANCA serologies are pending but at this time, and I do not identify features concerning for systemic vasculitis such as lung disease, hemoptysis, hematuria, purpuric rash, mononeuritis multiplex, etc. Please call with questions or concerns, happy to discuss further if helpful. Time spent with the care of the patient today including chart review, obtaining history, examining patient, discussing treatment plan, and documenting in the electronic health record: 75 History of Present Illness Attending Physician: Kourtney Man MD History of Present Illness This patient is a 65-year-old gentleman who was in his usual state of health until the evening of 01/22 when he developed arthralgias, myalgias, and nausea. He awoke on the morning of 01/23 with widespread arthralgias involving essentially every joint. His face felt flushed and burning but he did not appreciate a fever at the time. Went to bed that night and began developing shivering and shaking. He woke up overnight soaked in drenched with sweat. He had ongoing arthralgias involving essentially every joint. The morning of 01/24, he woke up and went to urgent care and was given antibiotics in the form of doxycycline. That evening, could not sleep due to discomfort with the arthralgias. On 01/26 he presented to the ER due to ongoing arthralgias and myalgias. He received Rocephin and was discharged to home. Based on ongoing symptoms the following day, he came back to the ER and was admitted. Received Rocephin and IV doxycycline in the ER setting. On 01/26, he developed rashes on his neck, upper arms, abdomen, and upper legs. He reports difficulty with headaches since the onset of the symptoms. He has developed recently sore throat and sore tongue. He has had ongoing nausea. He denies joint swelling but admits that his hands feel a bit tight when making a fist. Has pain in muscles and joints. This evening, he notes slight regression in symptoms but has continued discomfort in several areas of his body. He is having difficulty sleeping secondary to discomfort. He denies chest pain. Denies cough. No hemoptysis. No hematuria. He denies recent travel. Denies new medications. Denies sick contacts. I know him from my outpatient practice. He has been evaluated for arthralgias. Rheumatoid factor was identified to be 76 however, he has lacked inflammatory joint features and thus, does not have a diagnosis of rheumatoid arthritis. Radiographs and evaluation have been consistent with osteoarthritis and he has responded to NSAIDs. Allergies Allergy/AdvReac Type Severity Reaction Status Date / Time No Known Allergies Allergy Verified 01/02/25 09:35 Home Medications Medication Instructions Recorded Confirmed Type sertraline 100 mg tablet (Zoloft) 100 mg PO DAILY 07/24/23 01/27/25 History cyclobenzaprine 10 mg tablet 10 mg PO DAILY PRN muscle spasm, 10/20/24 01/27/25 Rx pain #90 tabs oxycodone 5 mg tablet 5 mg PO Q6H PRN pain #15 tabs 01/26/25 01/27/25 Rx albuterol sulfate 90 mcg/actuation 2 puff inhalation QID PRN Wheezing 01/27/25 01/27/25 History aerosol inhaler finasteride 5 mg tablet 5 mg PO DAILY 01/27/25 01/27/25 History sulindac 200 mg tablet 0 mg PO BID 01/27/25 01/27/25 History Patient History Medical History (Updated 01/28/25 @ 21:19 by Jose Rivera DO) LFT elevation Rash Tinnitus Surgical History History of prostate surgery S/P nasal surgery Family History Mother Diabetes Lung disease Father Depression Social History Smoking Status: Former smoker Tobacco Type: Cigarettes Smoking End Date: 1995; Do You Dip or Chew Tobacco: No; Hx Alcohol Use: No Hx Substance Use: No Preferred Language: French Communication Ability: Effective Tube Teller Required: No Beliefs That Will Affect Care: None marital status: Current Living Situation: Alone current occupational status: employed Other Information That Helps Us Care for You: Yes (Left hip replacement in 2021.) Feels Safe at Home: Yes Safety Concerns: Feels Safe At This Time Assistive Devices: None Physical Exam Physical Exam: General: Uncomfortable Eyes: No scleritis Mouth: Erythema soft palate but no significant ulcerative change Cardiovascular: Heart regular, no rubs Pulmonary: Clear to auscultation Abdomen: Soft, nontender. Do not appreciate obvious organomegaly. Distant bowel sounds Skin: Macular rash upper arms and thighs. Do not identify purpuric lesions. Musculoskeletal: No pronounced knee effusions and knees are cool to touch. There is some diffuse, mild swelling to the hands without discrete swelling at MCP and PIPs. No MTP swelling. Results & Data Vital Signs (Past 12 Hours) Vital Signs Temp Pulse Pulse Resp BP Pulse Ox O2 Del Method 01/28/25 15:12 36.3 C L 69 18 100/63 97 Room Air 01/28/25 12:53 36.7 C 75 16 92/58 L 98 Room Air Results CMP Results: Sodium 129 mmol/L (136-145) L 01/28/25 Potassium 4.2 mmol/L (3.5-5.1) 01/28/25 Chloride 98 mmol/L (98-107) 01/28/25 Carbon Dioxide 25 mmol/L (21-32) 01/28/25 Anion Gap 6 (3-11) 01/28/25 BUN 22 mg/dl (6-23) 01/28/25 Creatinine 1.12 mg/dl (0.6-1.4) 01/28/25 eGFR 72.90 01/28/25 Est GFR ( Amer) 79.2 ml/min 01/22/24 Est GFR (Non-Af Amer) 68 05/27/24 BUN/Creatinine Ratio 19.6 (10-20) 01/28/25 Glucose 113 mg/dl (70-99(Fasting)) H 01/28/25 Calcium 7.9 mg/dl (8.6-10.3) L 01/28/25 Total Bilirubin 0.8 mg/dl (0.2-1.0) 01/28/25 Direct Bilirubin 0.3 mg/dl (0-0.2) H 01/28/25 AST 40 U/L (13-39) H 01/28/25 ALT 66 U/L (7-52) H 01/28/25 Alkaline Phosphatase 200 U/L (34-104) H 01/28/25 Total Protein 5.8 gm/dl (6.0-8.3) L 01/28/25 Albumin 3.0 gm/dl (3.4-5.0) L 01/28/25 Globulin 2.8 gm/dl (2.5-4.0) 01/28/25 Albumin/Globulin Ratio 1.1 (0.9-2) 01/28/25 Lactate Dehydrogenase 303 U/L (86-244) H 01/28/25 Results Rheum Results - ESR: ESR 64 mm/hr (0-20) H 01/28/25 11:55 Results Rheum Results - CRP: CRP 26.65 mg/dl (0-0.5) H 01/28/25 11:55 Results CBC w Diff Results: RBC 3.53 M/uL (4.70-6.10) L 01/28/25 WBC 3.77 K/ul (4.8-10.8) L 01/28/25 Hgb 10.6 g/dl (14.0-18.0) L 01/28/25 Hct 31.0 % (42.0-52.0) L 01/28/25 MCV 87.8 fL (80.0-100.0) 01/28/25 MCH 30.0 pg (25.0-34.0) 01/28/25 MCHC 34.2 g/dL (32.0-36.0) 01/28/25 RDW Standard Deviation 45.0 fL (36.4-46.3) 01/28/25 RDW Coefficient of Variation 14.0 % (11.5-14.5) 01/28/25 Plt Count 86 K/uL (130-400) L 01/28/25 MPV 10.2 fL (9.4-12.4) 01/28/25 Neutrophils (%) (Auto) 78.1 % 01/28/25 Lymphocytes (%) (Auto) 8.0 % 01/28/25 Monocytes # (Auto) 0.26 K/uL (0.11-0.59) 01/28/25 Eosinophils # (Auto) 0.21 K/uL (0.00-0.50) 01/28/25 Immature Granulocyte % (Auto) 1.1 % 01/28/25 Neutrophils # (Auto) 2.95 K/uL (1.40-6.50) 01/28/25 Lymphocytes # (Auto) 0.30 K/uL (1.20-3.40) L 01/28/25 Monocytes # (Auto) 0.26 K/uL (0.11-0.59) 01/28/25 Eosinophils # (Auto) 0.21 K/uL (0.00-0.50) 01/28/25 Basophils # (Auto) 0.01 K/uL (0.00-0.20) 01/28/25 Immature Granulocyte # (Auto) 0.04 K/uL (0.01-0.20) 5 Tear Drop Cells 1+ 01/26/25 Dohle Bodies 1+ 01/28/25 Results Urinalysis: Urine Color Yellow 01/27/25 Urine Appearance Clear (Clear) 01/27/25 Urine pH 5.5 (4.5-7.5) 01/27/25 Ur Specific [place] 1.016 (1.000-1.030) 01/27/25 Urine Protein Negative (Negative) 01/27/25 Urine Glucose (UA) Negative (Negative) 01/27/25 Urine Ketones Negative (Negative) 01/27/25 Urine Blood Negative (Negative) 01/27/25 Urine Nitrite Negative (Negative) 01/27/25 Urine Bilirubin Negative (Negative) 01/27/25 Urine Urobilinogen Negative (Negative) 01/27/25 Ur Leukocyte Esterase Negative (Negative) 01/27/25 Urine WBC (Auto) 0-5 /hpf (0-5) 01/26/25 Urine RBC (Auto) 0-2 /hpf (0-2) 01/26/25 Urine Hyaline Casts (Auto) 3-5 /lpf (0-2) H 01/26/25 Urine Epithelial Cells (Auto) 3-5 /hpf (0-2) H 01/26/25 Urine Bacteria (Auto) None Seen (None Seen) 01/26/25 Urine Culture: No Data to Display PG Care Time/CCT Total # of Minutes Spent Total Time Spent with Patient: Total time spent is greater than 50% in coordination of care (as documented) at patient's floor/unit and/or counseling patient: Coding Level of Care Code 26536 IN/OBS CONSULT LVL 4,60M Diagnoses Arthralgia, unspecified joint M25.50 Joint pain location: unspecified Fever and chills R50.9 Myalgia M79.10 Rash R21 Pancytopenia D61.818 LFT elevation R79.89
[2025-01-28] MEDS: diphenhydrAMINE Capsule 25 MG CAP PO ONE (22:20)
[2025-01-28] MEDS: LIDOCAINE VISCOUS 2% 15 ML UDC MT ONE (22:20)
[2025-01-29] MEDS: MELATONIN 3 MG TAB PO ONE (00:46)
[2025-01-29] MEDS: LIDOCAINE VISCOUS 2% 15 ML UDC MT ONE (06:00)
[2025-01-29 08:45] LABS: Hematocrit (blood only) 32.6 % (42.0-52.0); Hemoglobin 11.4 g/dl (14.0-18.0); Immature Granulocytes # (auto) 0.05 K/uL (0.01-0.20); Immature Granulocytes % (auto) 1.5 %; Mean Corpuscular Hemoglobin 30.4 pg (25.0-34.0); Mean Corpuscular Volume 86.9 fL (80.0-100.0); Platelet Count 85 K/uL (130-400); RDW Standard Deviation 43.0 fL (36.4-46.3); Red Blood Count 3.75 M/uL (4.70-6.10); White Blood Count 3.25 K/ul (4.8-10.8)
[2025-01-29 09:02] LABS: Alanine Aminotransferase 65.0 U/L (7-52); Albumin Globulin Ratio 1.0 (0.9-2); Alkaline Phosphatase 227.0 U/L (34-104); Anion Gap 9.0 (3-11); Bilirubin,Total 0.7 mg/dl (0.2-1.0); Blood Urea Nitrogen 19.0 mg/dl (6-23); Calcium 8.4 mg/dl (8.6-10.3); Carbon Dioxide 23.0 mmol/L (21-32); Chloride 97.0 mmol/L (98-107); Creatinine Clr Calc Pharmacy 105.5 ml/min; Globulin 3.2 gm/dl (2.5-4.0); Glucose 101.0 mg/dl (70-99(Fasting)); Magnesium 2.0 mg/dl (1.7-2.4); Potassium 4.1 mmol/L (3.5-5.1); Sodium 129.0 mmol/L (136-145); Total Protein 6.4 gm/dl (6.0-8.3)
[2025-01-29] MEDS: METOPROLOL TARTRATE 1 MG/ML VIAL IV STA (09:15)
[2025-01-29] MEDS ORDERED: STAT IV Infusion **Titration per Protocol STA (09:20)
[2025-01-29] MEDS: HEPARIN 25000 UNIT/500 ML D5W 25,000 UNITS/500 ML BAG IV SCH (09:56)
[2025-01-29] MEDS: Heparin IV Adult Wt-Based Low-Dose *NO* INITIAL Bolus Protocol IV STA (10:00)
--- NOTE | 2025-01-29 11:56 | Cardiology Consultation ---
Date of Consultation January 29, 2025 Assessment & Plan (1) Atrial fibrillation, new onset: (2) Atrial fibrillation with RVR: (3) Elevated troponin: (4) Acute febrile illness: (5) SIRS (systemic inflammatory response syndrome): Plan Mr. Campbell is a 65-year-old male with a history of Hyperlipidemia, BPH, Anxiety, Meniere's Disease, and Lumbar Spinal Stenosis who was admitted to [facility] on 01/27/25 with an acute febrile illness and SIRS. Patient was in his usual state of health until the evening of 01/22/25 when he developed arthralgias, myalgias, and nausea. He awoke on the morning of 01/23/25 with widespread arthralgias involving every joint. His face felt flushed and burning but he did not appreciate a fever at the time. He went to bed that night and began developing shivering and shaking. He woke up overnight soaked in drenched with sweat. He had ongoing arthralgias involving essentially every joint. The morning of 01/24/25, he woke up and went to urgent care and was given Doxycycline. That evening, could not sleep due to discomfort with the arthralgias. On 01/26/25 he presented to the ER due to ongoing arthralgias and myalgias. He received Rocephin and was discharged to home. Based on his ongoing symptoms the following day, he came back to the ER and was admitted. Received Rocephin and IV Doxycycline in the ER. On 01/26/25 he developed rashes on his neck, upper arms, abdomen, chest, and upper legs. He has also had headaches since the onset of the symptoms. More recently he has developed a sore throat and sore tongue. He has had ongoing nausea. He denies joint swelling but admits that his hands feel a tight when making a fist. He has pain in his muscles and joints. This morning, he has had some improvement in his symptoms but has continued discomfort in several areas of his body. He is having difficulty sleeping secondary to discomfort. Earlier today the patient developed New Onset Atrial Fibrillation with RVR. He has minimal symptoms other than feeling that his chest feels flushed. Patient has not had any palpitations, tachy palpitations, shortness of breath, or any chest discomfort. He denies any vomiting, diaphoresis, or dyspnea. He denies any prior cardiac history or prior cardiac events. Echocardiogram performed 01/28/2025 shows normal LV size, wall motion, and systolic function, LVEF 60% to 65%, mild mitral regurgitation, borderline left atrial enlargement, borderline aortic root dilatation. Laboratories show hemoglobin 11.4, hematocrit 32.6, white blood cell count of 3.25, and platelet count of 85,000. Sodium 129 mmol/L, potassium 4.1 mmol/L, BUN 19 mg/dL creatinine 0.95 mg/dL. High sensitivity troponin I levels 46.8, 61.9, 448.0, 435.1 pg/mL, and 280.9 pg/mL. 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 Patient's LFTs are elevated and his inflammatory markers are elevated. C-reactive protein is 29.70 mg/dL and sedimentation rate is 64 mm/hr. We discussed what atrial fibrillation is, the natural history of atrial fibrillation, and we discussed various management strategies. His atrial fibrillation is likely secondary to his acute febrile illness/SIRS. We discussed the importance of anticoagulation, and we discussed the importance of controlling his ventricular response rate. In all likelihood he will spontaneously convert back to a normal sinus rhythm during this hospitalization. Recommend the followin. Continue Heparin drip, convert to Eliquis 5 mg b.i.d. at the time of discharge. 2. IV Cardizem 10 mg now, followed by Cardizem drip. 3. IV Lopressor 5 mg as needed. 4. Continue treatment of underlying acute febrile illness. Thank you for asking us to see this patient in consultation. We will continue to follow him while hospitalized. History of Present Illness Reason for Consultation: -- New onset Atrial Fibrillation with RVR. Requesting Physician: Kourtney Man MD Attending Physician: Tevin Mcguire MD History of Present Illness Mr. Campbell is a 65-year-old male with a history of Hyperlipidemia, BPH, Anxiety, Meniere's Disease, and Lumbar Spinal Stenosis who was admitted to [facility] on 01/27/25 with an acute febrile illness and SIRS. Patient was in his usual state of health until the evening of 01/22/25 when he developed arthralgias, myalgias, and nausea. He awoke on the morning of 01/23/25 with widespread arthralgias involving every joint. His face felt flushed and burning but he did not appreciate a fever at the time. He went to bed that night and began developing shivering and shaking. He woke up overnight soaked in drenched with sweat. He had ongoing arthralgias involving essentially every joint. The morning of 01/24/25, he woke up and went to urgent care and was given Doxycycline. That evening, could not sleep due to discomfort with the arthralgias. On 01/26/25 he presented to the ER due to ongoing arthralgias and myalgias. He received Rocephin and was discharged to home. Based on his ongoing symptoms the following day, he came back to the ER and was admitted. Received Rocephin and IV Doxycycline in the ER. On 01/26/25 he developed rashes on his neck, upper arms, abdomen, chest, and upper legs. He has also had headaches since the onset of the symptoms. More recently he has developed a sore throat and sore tongue. He has had ongoing nausea. He denies joint swelling but admits that his hands feel a tight when making a fist. He has pain in his muscles and joints. This morning, he has had some improvement in his symptoms but has continued discomfort in several areas of his body. He is having difficulty sleeping secondary to discomfort. Earlier today the patient developed New Onset Atrial Fibrillation with RVR. He has minimal symptoms other than feeling that his chest feels flushed. Patient has not had any palpitations, tachy palpitations, shortness of breath, or any chest discomfort. He denies any vomiting, diaphoresis, or dyspnea. He denies any prior cardiac history or prior cardiac events. Echocardiogram performed 01/28/2025 shows normal LV size, wall motion, and systolic function, LVEF 60% to 65%, mild mitral regurgitation, borderline left atrial enlargement, borderline aortic root dilatation. Laboratories show hemoglobin 11.4, hematocrit 32.6, white blood cell count of 3.25, and platelet count of 85,000. Sodium 129 mmol/L, potassium 4.1 mmol/L, BUN 19 mg/dL creatinine 0.95 mg/dL. High sensitivity troponin I levels 46.8, 61.9, 448.0, 435.1 pg/mL, and 280.9 pg/mL. 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 Patient's LFTs are elevated and his inflammatory markers are elevated. C-reactive protein is 29.70 mg/dL and sedimentation rate is 64 mm/hr. PMSHx: -- Hyperlipidemia. -- BPH s/p prostate surgery. -- Anxiety. -- Meniere's Disease. -- Lumbar Spinal Stenosis. -- Nasal surgery. -- s/p Left SALAZAR. Social History: -- He is , lives alone. -- Former smoker, quit in 1995. Family History: -- Father lived with depression. -- Mother with diabetes and lung disease. Allergies Allergy/AdvReac Type Severity Reaction Status Date / Time No Known Allergies Allergy Verified 01/02/25 09:35 Home Medications Medication Instructions Recorded Confirmed Type sertraline 100 mg tablet (Zoloft) 100 mg PO DAILY 07/24/23 01/27/25 History cyclobenzaprine 10 mg tablet 10 mg PO DAILY PRN muscle spasm, 10/20/24 01/27/25 Rx pain #90 tabs oxycodone 5 mg tablet 5 mg PO Q6H PRN pain #15 tabs 01/26/25 01/27/25 Rx albuterol sulfate 90 mcg/actuation 2 puff inhalation QID PRN Wheezing 01/27/25 01/27/25 History aerosol inhaler finasteride 5 mg tablet 5 mg PO DAILY 01/27/25 01/27/25 History sulindac 200 mg tablet 0 mg PO BID 01/27/25 01/27/25 History Patient History Medical History (Updated 01/29/25 @ 12:21 by Josh Ott PA-C) LFT elevation Rash Tinnitus Surgical History History of prostate surgery S/P nasal surgery Family History Mother Diabetes Lung disease Father Depression Social History Smoking Status: Former smoker Tobacco Type: Cigarettes Smoking End Date: 1995; Do You Dip or Chew Tobacco: No; Hx Alcohol Use: No Hx Substance Use: No Preferred Language: Bulgarian Communication Ability: Effective 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 Physical Exam Physical Exam: Blood pressure is 124/67, pulse is 124 and irregularly irregular. GENERAL: Patient appears acutely ill. HEENT: Head is atraumatic, normocephalic. EOM's intact. Facies symmetric. No perioral cyanosis. NECK: No JVD. JVP is not elevated. Carotid upstrokes are + 2 bilaterally. No bruits. CHEST/LUNGS: Clear to auscultation throughout all lung kumar. No wheezes, rales, or crackles. CVS: S1 and S2 are irregularly irregular and tachycardic. No murmurs, gallops, or rubs. PMI is nonpalpable. No lifts, heaves, or thrills. No abdominal aortic or renal bruits. ABDOMINAL EXAM: Bowel sounds are present. EXTREMITIES: No clubbing or cyanosis. No edema. Extremities are well perfused. NEUROLOGIC EXAM: Patient is awake, alert, and oriented. Pleasant and cooperative. Answers questions appropriately. Speech is clear. TELEMETRY: -- Atrial fibrillation with RVR. Results & Data Vital Signs (Past 12 Hours) Vital Signs Temp Pulse Pulse Pulse Resp BP BP 01/29/25 11:01 01/29/25 10:46 36.8 C 120 H 18 91/59 L 01/29/25 09:37 115 H 124/67 01/29/25 09:15 137 H 105/69 01/29/25 08:00 36.7 C 152 H 18 109/70 Pulse Ox O2 Del Method O2 Flow Rate 01/29/25 11:01 Nasal Cannula 2 01/29/25 10:46 94 Nasal Cannula 2 01/29/25 09:37 01/29/25 09:15 01/29/25 08:00 94 Room Air Laboratory Results Laboratory Results - last 24 hr 01/27/25 01/28/25 01/28/25 11:30 10:46 11:55 WBC RBC Hgb Hct MCV MCH MCHC RDW Std Deviation RDW Coeff of Robb Plt Count MPV Immature Gran % (Auto) Neut % (Auto) Lymph % (Auto) [place] % (Auto) Eos % (Auto) Baso % (Auto) Neut # (Auto) Lymph # (Auto) [place] # (Auto) Eos # (Auto) Baso # (Auto) Immature Gran # (Auto) Peripher Smr Path Cons ESR 64 H Sodium Potassium Chloride Carbon Dioxide Anion Gap BUN Creatinine Est Cr Clr Drug Dosing eGFR BUN/Creatinine Ratio Glucose Osmolality Calcium Magnesium Ferritin 1219.5 H Total Bilirubin AST ALT Alkaline Phosphatase Lactate Dehydrogenase 303 H C-Reactive Protein 26.65 H Total Protein Albumin Globulin Albumin/Globulin Ratio Treponema pallidum Ab Negative C.trachomatis RNA U Histopl Galactoman Ag HIV-1 RNA copies/mL Pending HIV-1 RNA logcopies/mL Pending N.gonorrhoeae RNA 01/28/25 01/29/25 01/29/25 21:05 07:18 09:39 WBC 3.25 L RBC 3.75 L Hgb 11.4 L Hct 32.6 L MCV 86.9 MCH 30.4 MCHC 35.0 RDW Std Deviation 43.0 RDW Coeff of Robb 13.6 Plt Count 85 L MPV 10.8 Immature Gran % (Auto) 1.5 Neut % (Auto) 74.8 Lymph % (Auto) 9.5 [place] % (Auto) 6.2 Eos % (Auto) 7.7 Baso % (Auto) 0.3 Neut # (Auto) 2.43 Lymph # (Auto) 0.31 L [place] # (Auto) 0.20 Eos # (Auto) 0.25 Baso # (Auto) 0.01 Immature Gran # (Auto) 0.05 Peripher Smr Path Cons ESR Sodium 129 L Potassium 4.1 Chloride 97 L Carbon Dioxide 23 Anion Gap 9 BUN 19 Creatinine 0.95 Est Cr Clr Drug Dosing 105.5 eGFR 88.83 BUN/Creatinine Ratio 20.0 Glucose 101 H Osmolality 272 L Calcium 8.4 L Magnesium 2.0 Ferritin Total Bilirubin 0.7 AST 49 H ALT 65 H Alkaline Phosphatase 227 H Lactate Dehydrogenase Pending C-Reactive Protein 29.70 H Total Protein 6.4 Albumin 3.2 L Globulin 3.2 Albumin/Globulin Ratio 1.0 Treponema pallidum Ab C.trachomatis RNA Pending U Histopl Galactoman Ag Pending HIV-1 RNA copies/mL HIV-1 RNA logcopies/mL N.gonorrhoeae RNA Pending Diagnostic Findings CXR 01/27/25: -- No acute cardiopulmonary processes. CT Scan Head 01/27/25: -- No acute intracranial processes. CTAP 01/28/25: -- Nonspecific splenomegaly. -- Diverticulosis coli. Medications Administered Medication List Acetaminophen (Acetaminophen 325 Mg Tab) 650 mg PO Q6H ELIEZER Stop: 02/26/25 15:37 Last Admin: 01/29/25 08:09 Dose: 650 mg Documented By: Admin: 01/29/25 03:43 Dose: Not Given Documented By: Admin: 01/28/25 21:21 Dose: 650 mg Documented By: Admin: 01/28/25 15:22 Dose: 650 mg Documented By: Admin: 01/28/25 08:18 Dose: 650 mg Documented By: Admin: 01/28/25 04:51 Dose: Not Given Documented By: Admin: 01/27/25 20:13 Dose: Not Given Documented By: Admin: 01/27/25 16:42 Dose: 650 mg Documented By: RT Atovaquone (Atovaquone 750 Mg/5 Ml Udc) 750 mg PO Q12H ELIEZER Stop: 02/27/25 16:29 Last Admin: 01/29/25 05:22 Dose: 750 mg Documented By: Admin: 01/28/25 18:32 Dose: 750 mg Documented By: RT Cyclobenzaprine HCl (Cyclobenzaprine Hcl 10 Mg Tab) 10 mg PO DAILY PRN PRN Reason: muscle spasm, pain Stop: 02/26/25 15:37 Last Admin: 01/29/25 09:59 Dose: 10 mg Documented By: Admin: 01/28/25 08:17 Dose: 10 mg Documented By: RT Finasteride (Finasteride 5 Mg Tab) 5 mg PO DAILY ELIEZER Stop: 02/27/25 08:59 Last Admin: 01/29/25 08:07 Dose: 5 mg Documented By: Admin: 01/28/25 08:15 Dose: 5 mg Documented By: RT Ceftriaxone Sodium (Rocephin) 2,000 mg in 50 mls @ 100 mls/hr IV Q24H ELIEZER Stop: 02/04/25 12:59 Last Infusion: 01/28/25 13:58 Dose: Infused Documented By: Admin: 01/28/25 12:50 Dose: 100 mls/hr Documented By: RT Azithromycin (Zithromax) 500 mg in 255 mls @ 127.5 mls/hr IV Q24H ELIEZER Stop: 02/04/25 16:29 Last Infusion: 01/28/25 21:03 Dose: Infused Documented By: Admin: 01/28/25 18:31 Dose: 127.5 mls/hr Documented By: RT Sodium Chloride (Nss) 1,000 mls @ 125 mls/hr IV .Q8H ELIEZER Stop: 01/29/25 16:44 Last Admin: 01/29/25 08:07 Dose: 125 mls/hr Documented By: Infusion: 01/29/25 08:07 Dose: Infused Documented By: Admin: 01/29/25 02:02 Dose: 125 mls/hr Documented By: Infusion: 01/29/25 02:02 Dose: Infused Documented By: Admin: 01/28/25 18:31 Dose: 125 mls/hr Documented By: RT Heparin Sodium/Dextrose (Heparin 26302 Unit/500 Ml D5w) 25,000 units in 500 mls @ 20 mls/hr IV .Q24H ELIEZER; Protocol Stop: 02/28/25 09:44 Last Admin: 01/29/25 09:56 Dose: 1,000 units/hr, 20 mls/hr Documented By: EP Co-signed By: TAYLA Diltiazem HCl 125 mg/ Dextrose 125 mls @ 5 mls/hr IV .Q24H ELIEZER; Protocol Stop: 02/28/25 09:29 Last Admin: 01/29/25 09:53 Dose: 5 mg/hr, 5 mls/hr Documented By: EP Co-signed By: TAYLA Melatonin (Melatonin 3 Mg Tab) 3 mg PO HS PRN PRN Reason: Insomnia Stop: 02/26/25 15:37 Last Admin: 01/28/25 23:44 Dose: 3 mg Documented By: Admin: 01/28/25 21:21 Dose: 3 mg Documented By: Admin: 01/27/25 20:23 Dose: 3 mg Documented By: CLIFFORD Ondansetron HCl (Ondansetron Inj 2 Mg/Ml 2 Ml Vial) 4 mg IV Q6H PRN PRN Reason: Nausea Stop: 02/26/25 15:37 Last Admin: 01/27/25 20:12 Dose: 4 mg Documented By: CLIFFORD Phenol (Chloraseptic (Phenol) 1.4% Soln 180 Ml Btl) 1 sprays MT Q2H PRN PRN Reason: Sore Throat Stop: 02/26/25 17:03 Last Admin: 01/28/25 08:21 Dose: 1 sprays Documented By: Admin: 01/27/25 18:02 Dose: 1 sprays Documented By: PME Polyethylene Glycol (Polyethylene (Miralax) 17 Gm Pack) 17 gm PO DAILY PRN PRN Reason: Constipation Stop: 02/26/25 15:37 Last Admin: 01/28/25 08:18 Dose: 17 gm Documented By: RT Sertraline HCl (Sertraline Hcl 100 Mg Tablet) 100 mg PO DAILY ELIEZER Stop: 02/27/25 08:59 Last Admin: 01/29/25 08:07 Dose: 100 mg Documented By: Admin: 01/28/25 08:15 Dose: 100 mg Documented By: RT Tramadol HCl (Tramadol Hcl 50 Mg Tablet) 50 mg PO Q4H PRN PRN Reason: Pain Stop: 02/26/25 15:37 Last Admin: 01/28/25 08:17 Dose: 50 mg Documented By: Admin: 01/27/25 20:12 Dose: 50 mg Documented By: CLIFFORD Discontinued Medications Diltiazem HCl (Diltiazem Hcl 5 Mg/Ml 5 Ml Vial) 10 mg IV NOW STA Stop: 01/29/25 09:21 Last Admin: 01/29/25 09:34 Dose: 10 mg Documented By: EP Co-signed By: TAYLA Diphenhydramine HCl (Diphenhydramine 50 Mg/Ml Vial) 25 mg IV NOW STA Stop: 01/27/25 11:35 Last Admin: 01/27/25 11:57 Dose: 25 mg Documented By: KAILEY Diphenhydramine HCl (Diphenhydramine Capsule 25 Mg Cap) 25 mg PO ONE ONE Stop: 01/28/25 21:01 Last Admin: 01/28/25 22:20 Dose: 25 mg Documented By: ALVIN Heparin Sodium/Dextrose (Heparin Iv Adult Wt-Based Low-Dose *No* Initial Bolus Protocol) 1 each IV ONE STA; Protocol Stop: 01/29/25 09:02 Last Admin: 01/29/25 10:00 Dose: Not Given Documented By: EP Sodium Chloride (Nss) 1,000 mls @ 999 mls/hr IV .Q1H1M ONE Stop: 01/27/25 12:17 Last Infusion: 01/27/25 13:32 Dose: Infused Documented By: Admin: 01/27/25 11:56 Dose: 999 mls/hr Documented By: KAILEY Acetaminophen (Ofirmev) 1,000 mg in 100 mls @ 400 mls/hr IV NOW STA Stop: 01/27/25 12:01 Last Infusion: 01/27/25 13:07 Dose: Infused Documented By: Admin: 01/27/25 11:56 Dose: 400 mls/hr Documented By: KAILEY Ceftriaxone Sodium (Rocephin) 2,000 mg in 50 mls @ 100 mls/hr IV NOW STA Stop: 01/27/25 13:23 Last Infusion: 01/27/25 13:49 Dose: Infused Documented By: Admin: 01/27/25 13:14 Dose: 100 mls/hr Documented By: KAILEY Doxycycline Hyclate 100 mg/ (Dextrose) 100 mls @ 50 mls/hr IV NOW STA Stop: 01/27/25 14:53 Last Infusion: 01/27/25 15:38 Dose: Infused Documented By: Admin: 01/27/25 13:37 Dose: 50 mls/hr Documented By: KAILEY Doxycycline Hyclate 100 mg/ (Dextrose) 100 mls @ 50 mls/hr IV Q12H ELIEZER Stop: 02/10/25 20:59 Last Infusion: 01/28/25 10:51 Dose: Infused Documented By: Admin: 01/28/25 08:15 Dose: 50 mls/hr Documented By: Infusion: 01/27/25 22:28 Dose: Infused Documented By: Admin: 01/27/25 20:13 Dose: 50 mls/hr Documented By: CLIFFORD Ioversol (Optiray 320 100ml) 94 ml IV ONCE ONE Stop: 01/28/25 14:26 Last Admin: 01/28/25 14:26 Dose: 94 ml Documented By: VERNON Ketorolac Tromethamine (Ketorolac Tromethamine 15 Mg/Ml Vial) 15 mg IV NOW STA Stop: 01/27/25 11:35 Last Admin: 01/27/25 11:58 Dose: 15 mg Documented By: KAILEY Ketorolac Tromethamine (Ketorolac Tromethamine 15 Mg/Ml Vial) 15 mg IV Q6H PRN PRN Reason: Pain Last Admin: 01/29/25 10:07 Dose: 15 mg Documented By: Admin: 01/28/25 21:21 Dose: 15 mg Documented By: Admin: 01/28/25 15:22 Dose: 15 mg Documented By: Admin: 01/28/25 10:13 Dose: 15 mg Documented By: RT Lidocaine HCl (Lidocaine Viscous 2% 15 Ml Udc) 15 ml MT NOW ONE Stop: 01/28/25 21:48 Last Admin: 01/28/25 22:20 Dose: 15 ml Documented By: ALVIN Lidocaine HCl (Lidocaine Viscous 2% 15 Ml Udc) 15 ml MT NOW ONE Stop: 01/29/25 05:43 Last Admin: 01/29/25 06:00 Dose: 15 ml Documented By: GEOVANNA Melatonin (Melatonin 3 Mg Tab) 3 mg PO HS ONE Stop: 01/28/25 23:51 Last Admin: 01/29/25 00:46 Dose: Not Given Documented By: GEOVANNA Metoclopramide HCl (Metoclopramide Hcl Inj 5 Mg/Ml 2 Ml Vial) 5 mg IV ONE ONE Stop: 01/27/25 11:35 Last Admin: 01/27/25 11:58 Dose: 5 mg Documented By: KAILEY Metoprolol Tartrate (Metoprolol Tartrate 1 Mg/Ml Vial) 5 mg IV NOW STA Stop: 01/29/25 08:34 Last Admin: 01/29/25 09:15 Dose: 5 mg Documented By: GREER Tramadol HCl (Tramadol Hcl 50 Mg Tablet) 100 mg PO NOW STA Stop: 01/27/25 15:08 Last Admin: 01/27/25 15:57 Dose: 100 mg Documented By: PG Care Time/CCT Total # of Minutes Spent Total Time Spent with Patient: Total time spent is greater than 50% in coordination of care (as documented) at patient's floor/unit and/or counseling patient:45 [place] [address] INT INP/OBS CARE 2/55MIN Patient Type New History Comprehensive Exam Comprehensive Medical Decision Making Moderate Complexity Diagnoses Atrial fibrillation, new onset I48.91 Atrial fibrillation with RVR I48.91 Elevated troponin R79.89 Acute febrile illness R50.9 SIRS (systemic inflammatory response syndrome) R65.10 Time Spent (min) 59
[2025-01-29 12:55] LABS: Chlam trach RNA(Genit,Ureth,Ur Not Detected (NotDetected); GC(Neis gon)RNA(Genit,Ureth,Ur Not Detected (NotDetected)
--- NOTE | 2025-01-29 14:31 | Infectious Disease Progress Nt ---
Date of Service January 29, 2025 Assessment & Plan (1) Fever and chills: (2) Thrombocytopenia: (3) Pancytopenia: (4) Joint pain: Plan ID Problem List: # Fever, arthralgias/myalgias # Rash # Sore throat # Elevated transaminases # Pancytopenia # History of widespread myofascial pain syndrome, osteoarthritis follows with rheumatology and pain management # History of positive RF (76) in 05/2023 Impression: Jarvis Campbell is a 65-year-old man with history of OA s/p L hip replacement 2020 and arthralgais of bilateral hands/feet presumed to be from OA (though follows with rheum, history of + rheumatoid factor), chronic cervical pain undergoing trigger point injections, BPH, who presents to [facility] on 01/26 with polyarthralgias, myalgias, fevers, and rash, after having recently been started on doxycycline on Sat 01/24 for suspected tickborne illness. ID is consulted for fever and rash. The patient began having fevers, chills, polyarthralgias, and myalgias, starting on 01/22, and he reports that his symptoms came on very rapidly. This progressed to include significant sweating and shaking. He was seen in urgent care on Sat 01/24 and was started on doxycycline for suspected tickborne illness. He developed a sore throat over the weekend (he believes after doxycycline) where he feels 10/10 pain with swallowing and also feels like his lips are slightly painful. He also developed neck pain and a headache. He also developed a rash over the weekend (after having started doxycycline) but reports that he has not been in direct sun. The rash is located in his R > L neck, upper back, and chest, trunk, arms, and thighs (including areas that were covered by clothing); no lesions on palms/soles, nonpruritic, non-painful, and without vesicles. He has continued to have fevers (Tmax 101F at home) and his rash did not improve. He has been on doxycycline since 01/24 and has continued to take this medication without improvement. In the ED, T38, WBC 4.52 (ALC low at 270) Hgb 13.9 plt 119 Cr 1.12 AST 49 ALT 102 procal 1.10. CK 85. UA with 0-5 WBCs, 0-2 RBCs. EKG with NSR, GA [address] head without acute findings, CXR clear. He was started on ceftriaxone and continued on doxycycline. Also with mildly elevated troponin, currently attributed to demand ischemia. On 01/28, T37.4 in AM, his labs showed worsening pancytopenia with WBC 3.77 (ALC 300) Hgb 10.6 plt 86. AST 40 ALT 66 ALP 200. He reports that he feels much worse since his symptoms started, and has significant aching pains in every joint especially his bilateral shoulders, hips, and knees, to the point that it is difficult to walk. Reports a dry cough, some nausea but no abdominal pain or diarrhea; no chest pain, no numbness and tingling; some dizziness. He has ongoing throat pain and profuse sweating. He is frequently outdoors[place] He recalls several mosquito bites. Has not noticed any tick bites. 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 No sick contacts, no contact with young children. He is currently sexually active with his girlfriend, who is a new partner as of ~5 months prior (last sexually active 01/16). No GI/ symptoms in the past month, no penile discharge. He has a pet dog; no other exposure to animals including no livestock or wild animals. No recent travel out of the [facility]. He last hunted during deer season (May 2024) and last [place] 01[place]16 weekend. The patient was evaluated by outpatient rheumatology starting in 05/2023 for 8 years of pain of multiple joints, including the L > R hips (s/p L hip replacement in 2020), and pain in the bilateral hands and bilateral feet. He has been presumed to have osteoarthritis, however testing in 2022 did show a positive rheumatoid factor (76) raising questions about underlying rheumatoid arthritis. He has been having axial neck tenderness, undergoing trigger point injections to his cervical muscles (01/02/25 underwent ropivacaine/Kenalog/ ketorolac injections to his left upper cervical paravertebral, left scalene, left levator scapulae, mid trapezius, right cervical paravertebral, right scalene, and right trapezius muscles). Discussion The patient presents with fevers, diffuse arthralgias/myalgias, sore throat, headaches, rash, and sweating, of unclear etiology. The fevers are low-grade. He has pancytopenia with mild leukopenia and significant thrombocytopenia. Normal CK. Exam from 01/28 showing maculopapular rash, especially confluent in neck (sparing face) and shoulders; more distinct scattered lesions on trunk, chest, upper thighs. Nonpruritic/nontender. Sparing palms and soles. Hands with swollen appearance. Bilateral knees very tender to palpation but without obvious joint effusion/swelling/erythema. Maybe his bottom lip is a bit swollen, no oropharyngeal erythema. The cause of this patients presentation is currently unclear. Ddx includes tickborne illness (though no improvement and having worsening after several days of doxycycline), viral infection, atypical bacterial/fungal infection, reactive arthritis (though no specific GI/ symptoms recently), other rheumatologic/inflammatory process (noting pt with chronic arthritis and cervical pain and has a history of + RF) including adult-onset Stills disease. Pt with new girlfriend of ~5 months and thus will send for HIV and STI testing including GC/CT mycoplasma. His presentation seems less likely to represent a serious typical bacterial infection/bacterial sepsis, given that it has occurred for many days and that he is otherwise clinically stable (albeit highly symptomatic). Thus far, workup includes negative Lyme screen, negative Anaplasma/Babesia smear, negative HIV, negative monospot, and negative rapid Strep. Many infectious studies are still pending as below. CT A/P showing splenomegaly. Discussed with Dr. aMn, agree with initiating atovaquone + azithromycin for empiric treatment of babesiosis. On 01/28, with worsening anemia and tbili, LDH elevation, and worsening thrombocytopenia. Furthermore, there has been a high prevalence of local Babesia cases recently. On 01/29, pt continues to remain symptomatic though plts remained stable at 85. The patients fingers appear to have dactylitis. Given the patients history of chronic arthritis (attributed to OA, but with + RF and with worsening axial/cervical symptoms recently), suspect that the patient could have an underlying rheumatologic condition such as RA. Also consider possibility of adult-onset Stills disease, and would recommend rheumatology evaluation. Can continue ceftriaxone and doxycycline for now, but may stop ceftriaxone in the coming 1-2 days if BCx remain NGTD. Considered that patient is not currently covered for babesiosis, though it would not explain all of the patients symptoms (sore throat, rash, etc.). If ongoing fevers, consider CT C/A/P for further evaluation. though pt does not have specific localizing symptoms. Recommendations: - Continue ceftriaxone for now, likely stop if BCx remain NGTD for 48h - Continue doxycycline for now - Continue atovaquone + azithromycin for possible babesiosis, while awaiting Babesia Ab, PCR, and repeat smear - F/u: Babesia PCR, parvovirus B19 Ab, CMV Ab, Q fever Ab, HIV RNA, Histo UrAg, Rickettsial panel, HCV Ab, WNV serum IgM and PCR, GC/CT urine, Mycoplasma genitalium, JC, ANCA, RF - Appreciate rheumatology evaluation, including for evaluation of possible Sti lls disease ID will continue to follow. Ernestine Burgess MD, S Infectious Diseases [facility]/ID Connect ID Connect direct line: [phone] Admission and Anticipated Discharge Date Admission Date: January 28, 2025 Subjective This patient recommendation is based on a telemedicine consult request which was completed asynchronously through chart review and information provided by the primary physician. The patient was not seen or examined today. The evaluation is consultative in nature and all patient care and treatment decisions can either be accepted or rejected by the patient's primary hospital-based treating physician using their own independent medical judgment for their patient. Time Spent Reviewing Chart: 31+ minutes - Afebrile overnight and this AM, HR 115. In Afib with RVR, getting diltazem drip. Now on 2L nc - WBC 3.25 (ALC 310) plt 85, AST 49 ALT 65 ALP 227, CRP 29.7 - Patient evaluated by rheum, and based on time course and symptoms currently favoring infection, though keeping the possibility of adult-onset Stills in mind. - Discussed with primary team, patient not yet feeling better but thinks perhaps his sweating is somewhat less today Results & Data Vital Signs (Past 12 Hours) Vital Signs Temp Pulse Pulse Pulse Resp BP BP 01/29/25 11:01 01/29/25 10:46 36.8 C 120 H 18 91/59 L 01/29/25 09:37 115 H 124/67 01/29/25 09:15 137 H 105/69 01/29/25 08:00 36.7 C 152 H 18 109/70 Pulse Ox O2 Del Method O2 Flow Rate 01/29/25 11:01 Nasal Cannula 2 01/29/25 10:46 94 Nasal Cannula 2 01/29/25 09:37 01/29/25 09:15 01/29/25 08:00 94 Room Air Laboratory Results Diagnostics: 01/28 CT A/P FINDINGS: The lung bases demonstrates changes consistent with UIP. There are no focal liver lesions identified. The portal vein is patent. There is no ascites. The gallbladder and bile ducts are unremarkable. There are no adrenal, pancreatic, or renal lesions are identified. There is no hydronephrosis. There is splenomegaly. There is a tiny calcification in the spleen is most likely a small granuloma. There is no aortic aneurysm or periaortic adenopathy. No bowel obstruction or free air. There is colonic diverticulosis with no evidence of diverticulitis or colitis. In the pelvis, the appendix is normal. There is no fluid in the cul-de-sac. Unopacified urinary bladder is grossly negative although visualization is hampered by spray artifact from a left hip prosthesis. IMPRESSION: Nonspecific splenomegaly. Bibasilar lung changes consistent with UIP. Micro Data: 01/28 ferritin: 1219.5 01/28 GC/CT urine: neg for both 01/28 M. genitalium ANNE: PEND 01/28 Histo UrAg: PEND 01/28 JC: PEND; ANCA: PEND; RF: PEND 01/28 GC/CT urine: PEND 01/28 Syphilis Ab: neg 01/28 HIV: neg; HIV RNA: PEND 01/28 WNV Ab: PEND; WNV PCR: PEND 01/28 Q fever Ab (repeat): PEND 01/28 Typhus fever Ab (repeat): PEND 01/28 Rickettsial Ab panel: PEND 01/28 hep C Ab: PEND 01/28 hep B core total Ab: neg; HBsAg: neg; HBsAb: neg (non-immune 01/27 parvovirus Ab: PEND 01/27 CMV Ab: PEND 01/27 Babesia/Anaplasma smear: neg 01/26 Babesia/Anaplasma smear: neg 01/27 RVP: neg 01/27 group A Strep throat swab: neg 01/27 EBV Ab: Capsid IgG positive, capsid IgM neg, early Ag IgG neg, EBNA IgG positive 01/27 mono screen: neg 01/27 BCx x2: NGTD 01/26 Ehrlichia PCR: PEND 01/26 Babesia PCR: PEND 01/26 Lyme screen: neg 01/26 Typhus fever Ab: PEND 01/26 Q fever Ab: PEND Antibiotic Summary: atovaquone (01/28 present) azithromycin (01/28 present) ceftriaxone (01/27 present) doxycycline (01/24 present)
--- NOTE | 2025-01-29 14:50 | Electrocardiogram Report ---
Test Reason : Blood Pressure : */* mmHG Vent. Rate : 138 BPM Atrial Rate : 96 BPM P-R Int : * ms QRS Dur : 92 ms QT Int : 280 ms P-R-T Axes : * 36 -12 degrees QTcB Int : 424 ms Atrial fibrillation with rapid ventricular response Abnormal ECG When compared with ECG of 28-Jan-2025 09:02, Atrial fibrillation has replaced Sinus rhythm Vent. rate has increased by 54 bpm Non-specific change in ST segment in Lateral leads Nonspecific T wave abnormality, worse in Inferior leads Confirmed by Tevin Mcguire ([id number]) on 01/29/2025 2:50:12 PM Referred By: REFERRED SELF Confirmed By: Tevin Mcguire
--- NOTE | 2025-01-29 15:53 | Hospitalist Progress Note ---
Date of Service January 29, 2025 Assessment & Plan (1) Fever and chills: (2) Arthralgia: (3) Pancytopenia: (4) At high risk for tick borne illness: Plan 65 y/o with polyarthralgias/myalgias and fevers to 101, pharyngitis, rash, headache. Started . Seen in urgent care Sunday started doxycycline suspected tickborne illness, started doxycycline with no improvement, seen in ED yesterday. 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 Rash started after taking the doxy but has not been outside and is in non sun-exposed areas. Rash not itchy or painful no vesicles. Located R>L neck, upper back and chest, arms and thighs, no palm/soles lesions. No sick contacts. No GI or illness in past month, no penile discharge. Has had neck pain and headache but no meningeal signs on exam. # acute illness with fever, arthralgias/myalgias, headache, rash, pancytopenia. Tmax at home 101 and yesterday in ED 38.0 does not look severely ill based on vital signs and labs, but is extremely miserable with the arthralgias/myalgias. CK was low, not in rhabdo. probably viral infection but could be tickborne. Consulted ID - ddx includes tickborn illness, viral infection, atypical bacterial/fungal infection, reactive arthritis or other rheumatologic process - concern for rheumatologic process with + RF, ? Stills disease - STI testing HIV, patient's GC/CT negative Rheumatology consulted - timeline abrupt for adult onset still's disease, Suspect infectious process. Could be HLH. If counts dont improve consider bone marrow bx Blood cultures negative at 48 hours - CTX discontinued Peripheral smear unrevealing -APAP/toradol/tramadol/IV fluids. oxycodone 5 mg made him feel loopy viral - -influenza and COVID biofire negative, monospot negative. EBV indicative of past infection. HIV negative Pending: CMV serology, parvovirus B19 serology tickborne - expect rash with Ehrlichiosis or RMSF, anaplasmosis/babesiosis PCR pending, lyme screen neg Doxycyline stopped. Started empiric azithromycin and atoviquone for possible babieosis CRP uptrending. Continue to trend and AM ProCal #New onset afib No prior hx. Started on cardizem drip and heparin drip - monitor platelets Cardiology consulted - recommend transition to Eliquis at discharge Mag/K replete #thrombocytosis, elevated LDH, elevated LFTs and with drop in hgb, concern for hemolysis empiric babesiosis tx as above trending LDH - slight increase today trend CBC and CMP #hyponatremia likely related to acute illness - serum osm 272, urine osm 272 and urine sodium <10 - appears hypovolemic, continue to hydrate with NSS trend with AM labs # mildly elevated HS-troponin, normal EKG - myocardial demand ischemia related to above acute illness. No chest pain and no e/o ACS Troponin peaked at 435, echo without Regional wall motion abnormalities. Patient reports normal heart cath 07/2024 at [facility] # history of widespread myofascial pain syndrome, osteoarthritis - has been seen by Rheumatology and followed by pain management #BPH - continue finasteride #mood disorder - continue sertraline DVT ppx - heparin drip Dispo: continued inpatient stay continuing workup, transferred to PCU for cardiac monitoring. Discussed case with ID and rheum Admission and Anticipated Discharge Date Admission Date: January 28, 2025 Supervising Physician Co-Signing Physician Notes PA Supervision Note: I personally saw and examined the patient. I verified all bell points and agree with LATESHA Damon with the following exceptions and/or additions: S-I saw patient due to his complex medical issues and at patient's request to see a physician. He is having tremendous pain all through his joints and also a lot of pain in the mouth and lips from his sores. I did discuss his care with rheumatology. He went into rapid A-fib today which converted spontaneously shortly before I came to see him O- Vitals reviewed Gen: AAOx3, NAD HEENT: Anicteric sclerae, EOMI, multiple small ulcerations inside upper and lower lip and under tongue. Mild erythema in roof of mouth and posterior oropharynx CV: RRR no mgr nl S1S2 Pulm: CTAB no wcr Abd: +BS soft NT ND no masses or hernias Ext: No edema, 2+ DP pulses Skin: Diffuse maculopapular erythematous rash across back, upper chest, and more lacy like purplish erythematous rash on upper thighs Neuro: Full strength throughout CBC, BMP, LFTs, peripheral smear reviewed A/X-57-amyo-old male here with febrile illness, rash, arthralgias, oral ulcerations, elevated LFTs, thrombocytopenia, highly suspect babesiosis - Seems to be improving with 24 hours of azithromycin and atovaquone-continue with same treatment - Follow CBC, CMP - Add Magic mouthwash for oral lesions - Add IV morphine as needed for more severe pain Subjective Patient seen lying in bed this morning. At this time he was feeling a little bit lightheaded/weird head feeling likely from the A-fib. He denies any history of A-fib or ever being on a blood thinner. He says his joint pain is about the same, he feels like the swelling has maybe improved slightly. We visited this afternoon does feel like he is starting to feel better. The joint pain has improved he is complaining of mouth pain. He has not been febrile today. Telemetry A-fib 110-160 Review of Systems 2 Review of Systems: All systems reviewed & are unremarkable except as noted in Subjective Physical Exam 2 Physical Exam: General: NAD, VS as above HEENT: MM dry, white lesion on inside of lip Resp: normal respiratory effort, lungs clear to auscultation CV: afib , no murmur, Abd: normal bowel sounds, non tender, no hepatosplenomegaly Extremities: Moves all extremities, no edema Neuro: A&O x3, Skin: intact, . Rash more prevalent on the top of his chest, with some spots on his anterior thighs - similar appearance to yesterday Results & Data Results & Data Vital Signs (Past 12 Hours) Vital Signs Temp Pulse Pulse Pulse Resp BP BP 01/29/25 11:01 01/29/25 10:46 98.2 F 120 H 18 91/59 L 01/29/25 09:37 115 H 124/67 01/29/25 09:15 137 H 105/69 01/29/25 08:00 98.1 F 152 H 18 109/70 Pulse Ox O2 Del Method O2 Flow Rate 01/29/25 11:01 Nasal Cannula 2 01/29/25 10:46 94 Nasal Cannula 2 01/29/25 09:37 01/29/25 09:15 01/29/25 08:00 94 Room Air Laboratory Results CBC and chemistry reviewed LFTs reviewed CRP reviewed and increasing LDH reviewed and increasing PG Care Time/CCT Total # of Minutes Spent Total Time Spent with Patient: Total time spent is greater than 50% in coordination of care (as documented) at patient's floor/unit and/or counseling patient: Coding Level of Care Code 64526 SUB INP/OBS CARE 3/50MIN Diagnoses Fever and chills R50.9 Arthralgia, unspecified joint M25.50 Joint pain location: unspecified Pancytopenia D61.818 At high risk for tick borne illness Z91.89 (2) Arthralgia Joint pain location: unspecified Qualified Code(s): M25.50 - Pain in unspecified joint
--- NOTE | 2025-01-29 16:47 | Rheumatology Progress Note ---
Date of Service January 29, 2025 Assessment & Plan (1) Arthralgia: Joint pain location: unspecified Qualified Code(s): M25.50 - Pain in unspecified joint (2) Myalgia: (3) Fever and chills: Plan Patient reports improvement with arthralgia symptoms after adjusting treatment with the addition of azithromycin and atovaquone His worsening rash is noted and still keeping Still's disease on the differential at this time. (Steroids, IL-1 inhib would be treatment) There is preliminary report of possible abnormal Babesia testing. Await additional/confirmatory He has exhibited improvement with his current symptoms and has been more comfortable. From a rheumatology standpoint, could consider 10 mg prednisone once or twice daily to help address his arthralgias. However, will defer to primary team especially with ongoing management of potential Babesia whether or not steroids could be given at this time. Monitor respiratory status with the CT results and basilar crackles on exam Discussed the case with his hospitalist team Dr. Vinson will be covering this weekend. Admission and Anticipated Discharge Date Admission Date: January 28, 2025 Subjective Returns to see Mr. Campbell on today. He has been transferred to PCU due to A- fib with rapid ventricular rate. He notes that his arthralgia symptoms are about "40%" better compared to yesterday. He reports fever this morning of 101. He denies chest pain. He has a slight cough. Denies productive cough. Still having ongoing nausea. Reports that his rash has gotten worse. Physical Exam Physical Exam: General: Alert and oriented. No acute distress Cardiovascular: Irregular, irregular Pulmonary: Inspiratory crackles at bases Musculoskeletal: No discrete MCP, PIP synovitis. Knees are cool to touch without effusions. Results & Data Vital Signs (Past 12 Hours) Vital Signs Temp Pulse Pulse Pulse Resp BP BP 01/29/25 16:00 36.8 C 103 H 20 97/64 L 01/29/25 11:01 01/29/25 10:46 36.8 C 120 H 18 91/59 L 01/29/25 10:26 38.3 C H 127 H 28 H 124/67 01/29/25 09:37 115 H 124/67 01/29/25 09:15 137 H 105/69 01/29/25 08:00 36.7 C 152 H 18 109/70 Pulse Ox O2 Del Method O2 Flow Rate 01/29/25 16:00 94 Room Air 01/29/25 11:01 Nasal Cannula 2 01/29/25 10:46 94 Nasal Cannula 2 01/29/25 10:26 94 Nasal Cannula 2 01/29/25 09:37 01/29/25 09:15 01/29/25 08:00 94 Room Air Results CMP Results: Sodium 129 mmol/L (136-145) L 01/29/25 Potassium 4.1 mmol/L (3.5-5.1) 01/29/25 Chloride 97 mmol/L (98-107) L 01/29/25 Carbon Dioxide 23 mmol/L (21-32) 01/29/25 Anion Gap 9 (3-11) 01/29/25 BUN 19 mg/dl (6-23) 01/29/25 Creatinine 0.95 mg/dl (0.6-1.4) 01/29/25 eGFR 88.83 01/29/25 Est GFR ( Amer) 79.2 ml/min 01/22/24 Est GFR (Non-Af Amer) 68 05/27/24 BUN/Creatinine Ratio 20.0 (10-20) 01/29/25 Glucose 101 mg/dl (70-99(Fasting)) H 01/29/25 Calcium 8.4 mg/dl (8.6-10.3) L 01/29/25 Total Bilirubin 0.7 mg/dl (0.2-1.0) 01/29/25 Direct Bilirubin 0.3 mg/dl (0-0.2) H 01/28/25 AST 49 U/L (13-39) H 01/29/25 ALT 65 U/L (7-52) H 01/29/25 Alkaline Phosphatase 227 U/L (34-104) H 01/29/25 Total Protein 6.4 gm/dl (6.0-8.3) 01/29/25 Albumin 3.2 gm/dl (3.4-5.0) L 01/29/25 Globulin 3.2 gm/dl (2.5-4.0) 01/29/25 Albumin/Globulin Ratio 1.0 (0.9-2) 01/29/25 Lactate Dehydrogenase 379 U/L (86-244) H 01/29/25 Results Rheum Results - ESR: ESR 64 mm/hr (0-20) H 01/28/25 11:55 Results Rheum Results - CRP: CRP 29.70 mg/dl (0-0.5) H 01/29/25 07:18 Results CBC w Diff Results: RBC 3.75 M/uL (4.70-6.10) L 01/29/25 WBC 3.25 K/ul (4.8-10.8) L 01/29/25 Hgb 11.4 g/dl (14.0-18.0) L 01/29/25 Hct 32.6 % (42.0-52.0) L 01/29/25 MCV 86.9 fL (80.0-100.0) 01/29/25 MCH 30.4 pg (25.0-34.0) 01/29/25 MCHC 35.0 g/dL (32.0-36.0) 01/29/25 RDW Standard Deviation 43.0 fL (36.4-46.3) 01/29/25 RDW Coefficient of Variation 13.6 % (11.5-14.5) 01/29/25 Plt Count 85 K/uL (130-400) L 01/29/25 MPV 10.8 fL (9.4-12.4) 01/29/25 Neutrophils (%) (Auto) 74.8 % 01/29/25 Lymphocytes (%) (Auto) 9.5 % 01/29/25 Monocytes # (Auto) 0.20 K/uL (0.11-0.59) 01/29/25 Eosinophils # (Auto) 0.25 K/uL (0.00-0.50) 01/29/25 Immature Granulocyte % (Auto) 1.5 % 01/29/25 Neutrophils # (Auto) 2.43 K/uL (1.40-6.50) 01/29/25 Lymphocytes # (Auto) 0.31 K/uL (1.20-3.40) L 01/29/25 Monocytes # (Auto) 0.20 K/uL (0.11-0.59) 01/29/25 Eosinophils # (Auto) 0.25 K/uL (0.00-0.50) 01/29/25 Basophils # (Auto) 0.01 K/uL (0.00-0.20) 01/29/25 Immature Granulocyte # (Auto) 0.05 K/uL (0.01-0.20) 5 Tear Drop Cells 1+ 01/26/25 Dohle Bodies 1+ 01/28/25 PG Care Time/CCT Total # of Minutes Spent Total Time Spent with Patient: Total time spent is greater than 50% in coordination of care (as documented) at patient's floor/unit and/or counseling patient: Coding Level of Care Code 04468 SUB INP/OBS CARE 2/35MIN Diagnoses Arthralgia, unspecified joint M25.50 Joint pain location: unspecified Myalgia M79.10 Fever and chills R50.9
[2025-01-29 16:55] LABS: ANTI-Xa, UFH(UnfractionatedHep 0.17 IU/ml (0.3-0.7)
[2025-01-29] MEDS: MoRPHine SULFATE 2 MG/ML CARP IV PRN (18:03)
[2025-01-29] MEDS: FIRST - Mouthwash BLM 5 ML UDP PO PRN (18:03)
[2025-01-29] MEDS: HEPARIN SOD (PORCINE) 1000 UNIT/ML IV ONE (18:23)
[2025-01-30 00:59] LABS: ANTI-Xa, UFH(UnfractionatedHep 0.34 IU/ml (0.3-0.7)
[2025-01-30 07:48] LABS: Hematocrit (blood only) 28.8 % (42.0-52.0); Hemoglobin 9.9 g/dl (14.0-18.0); Immature Granulocytes # (auto) 0.09 K/uL (0.01-0.20); Immature Granulocytes % (auto) 2.5 %; Mean Corpuscular Hemoglobin 29.7 pg (25.0-34.0); Mean Corpuscular Volume 86.5 fL (80.0-100.0); Platelet Count 116 K/uL (130-400); RDW Standard Deviation 43.6 fL (36.4-46.3); Red Blood Count 3.33 M/uL (4.70-6.10); White Blood Count 3.59 K/ul (4.8-10.8)
[2025-01-30 08:05] LABS: Alanine Aminotransferase 52.0 U/L (7-52); Albumin Globulin Ratio 1.0 (0.9-2); Alkaline Phosphatase 185.0 U/L (34-104); Anion Gap 7.0 (3-11); Bilirubin,Total 0.6 mg/dl (0.2-1.0); Blood Urea Nitrogen 15.0 mg/dl (6-23); Calcium 7.7 mg/dl (8.6-10.3); Carbon Dioxide 23.0 mmol/L (21-32); Chloride 102.0 mmol/L (98-107); Creatinine Clr Calc Pharmacy 120.8 ml/min; Globulin 2.8 gm/dl (2.5-4.0); Glucose 110.0 mg/dl (70-99(Fasting)); Potassium 3.9 mmol/L (3.5-5.1); Sodium 132.0 mmol/L (136-145); Total Protein 5.5 gm/dl (6.0-8.3)
[2025-01-30 08:15] LABS: ANTI-Xa, UFH(UnfractionatedHep 0.24 IU/ml (0.3-0.7)
--- NOTE | 2025-01-30 09:26 | Cardiology Progress Note ---
Date of Service January 30, 2025 Assessment & Plan (1) Atrial fibrillation, new onset: (2) Atrial fibrillation with RVR: (3) Elevated troponin: (4) Acute febrile illness: (5) SIRS (systemic inflammatory response syndrome): Plan Mr. Campbell is a 65-year-old male with a history of Hyperlipidemia, BPH, Anxiety, Meniere's Disease, and Lumbar Spinal Stenosis who was admitted to [facility] on 01/27/25 with an acute febrile illness and SIRS. Patient was in his usual state of health until the evening of 01/22/25 when he developed arthralgias, myalgias, and nausea. He awoke on the morning of 01/23/25 with widespread arthralgias involving every joint. His face felt flushed and burning but he did not appreciate a fever at the time. He went to bed that night and began developing shivering and shaking. He woke up overnight soaked in drenched with sweat. He had ongoing arthralgias involving essentially every joint. The morning of 01/24/25, he woke up and went to urgent care and was given Doxycycline. That evening, could not sleep due to discomfort with the arthralgias. On 01/26/25 he presented to the ER due to ongoing arthralgias and myalgias. He received Rocephin and was discharged to home. Based on his ongoing symptoms the following day, he came back to the ER and was admitted. Received Rocephin and IV Doxycycline in the ER. On 01/26/25 he developed rashes on his neck, upper arms, abdomen, chest, and upper legs. He has also had headaches since the onset of the symptoms. More recently he has developed a sore throat and sore tongue. He has had ongoing nausea. He denies joint swelling but admits that his hands feel a tight when making a fist. He has pain in his muscles and joints. This morning, he has had some improvement in his symptoms but has continued discomfort in several areas of his body. He is having difficulty sleeping secondary to discomfort. Earlier today the patient developed New Onset Atrial Fibrillation with RVR. He has minimal symptoms other than feeling that his chest feels flushed. Patient has not had any palpitations, tachy-palpitations, shortness of breath, or any chest discomfort. He denies any vomiting, diaphoresis, or dyspnea. He denies any prior cardiac history or prior cardiac events. Echocardiogram performed 01/28/2025 shows normal LV size, wall motion, and systolic function, LVEF 60% to 65%, mild mitral regurgitation, borderline left atrial enlargement, borderline aortic root dilatation. Laboratories show hemoglobin 11.4, hematocrit 32.6, white blood cell count of 3.25, and platelet count of 85,000. Sodium 129 mmol/L, potassium 4.1 mmol/L, BUN 19 mg/dL creatinine 0.95 mg/dL. High sensitivity troponin I levels 46.8, 61.9, 448.0, 435.1 pg/mL, and 280.9 pg/mL. quality assurance monitor shows atrial fibrillation with ventricular response rates from 108 to 150 bpm. Patient's LFTs are elevated and his inflammatory markers are elevated. C-reactive protein is 29.70 mg/dL and sedimentation rate is 64 mm/hr. We discussed what atrial fibrillation is, the natural history of atrial fibrillation, and we discussed various management strategies. His atrial fibrillation is likely secondary to his acute febrile illness/SIRS. We discussed the importance of anticoagulation, and we discussed the importance of controlling his ventricular response rate. Mr. Campbell is feeling better today, less arthralgia, aches, and pains. Able to sleep for an hour or so at this point. He spontaneously converted to a sinus rhythm yesterday at approximately 4:45 p.m. and he remains in a normal sinus rhythm today. Recommend the followin. Continue Heparin drip, convert to Eliquis 5 mg b.i.d. at the time of dischar ge. 2. 30 Day Cardiac Event Monitor at discharge. 3. If no recurrent atrial fibrillation we will discontinue Eliquis at the end of 30 days. Thank you for asking us to see this patient in consultation. We will continue to follow him while hospitalized. Admission and Anticipated Discharge Date Admission Date: January 28, 2025 Subjective Mr. Campbell is feeling better today, less arthralgia, aches, and pains. Able to sleep for an hour or so at this point. He spontaneously converted to a sinus rhythm yesterday at approximately 4:45 p.m. and he remains in a normal sinus rhythm today. Review of Systems Review of Systems: -- As per HPI. Physical Exam Physical Exam: Blood pressure is 122/77, pulse is 80 and regular. GENERAL: Patient appears acutely ill. HEENT: Head is atraumatic, normocephalic. EOM's intact. Facies symmetric. No perioral cyanosis. NECK: No JVD. JVP is not elevated. Carotid upstrokes are + 2 bilaterally. No bruits. CHEST/LUNGS: Clear to auscultation throughout all lung kumar. No wheezes, rales, or crackles. CVS: S1 and S2 are regular. No murmurs, gallops, or rubs. PMI is nonpalpable. No lifts, heaves, or thrills. No abdominal aortic or renal bruits. ABDOMINAL EXAM: Bowel sounds are present. EXTREMITIES: No clubbing or cyanosis. No edema. Extremities are well perfused. NEUROLOGIC EXAM: Patient is awake, alert, and oriented. Pleasant and cooperative. Answers questions appropriately. Speech is clear. TELEMETRY: -- Normal sinus rhythm in the 70's and 8 0's. Results & Data Vital Signs (Past 12 Hours) Vital Signs Temp Pulse Pulse Pulse Resp BP Pulse Ox 01/30/25 08:28 37.7 C H 81 21 122/77 93 01/30/25 07:16 88 01/30/25 03:17 36.7 C 88 19 140/88 94 01/29/25 23:28 36.3 C L 79 18 93/60 L 94 01/29/25 23:07 74 O2 Del Method 01/30/25 08:28 Room Air 01/30/25 07:16 01/30/25 03:17 Room Air 01/29/25 23:28 Room Air 01/29/25 23:07 Laboratory Results Laboratory Results - last 24 hr 01/28/25 01/28/25 01/29/25 21:05 Unknown 07:18 WBC RBC Hgb Hct MCV MCH MCHC RDW Std Deviation RDW Coeff of Robb Plt Count MPV Immature Gran % (Auto) Neut % (Auto) Lymph % (Auto) [place] % (Auto) Eos % (Auto) Baso % (Auto) Neut # (Auto) Lymph # (Auto) [place] # (Auto) Eos # (Auto) Baso # (Auto) Immature Gran # (Auto) Peripher Smr Path Cons Heparin Anti-Xa, Unfract Sodium Potassium Chloride Carbon Dioxide Anion Gap BUN Creatinine Est Cr Clr Drug Dosing eGFR BUN/Creatinine Ratio Glucose Osmolality Calcium Total Bilirubin AST ALT Alkaline Phosphatase Lactate Dehydrogenase 379 H C-Reactive Protein Total Protein Albumin Globulin Albumin/Globulin Ratio Procalcitonin Urine Osmolality Ur Random Sodium Babesia Smear C.trachomatis RNA Not Detected M. genitalium (ANNE) Negative N.gonorrhoeae RNA Not Detected 01/29/25 01/29/25 01/29/25 09:39 09:42 12:25 WBC RBC Hgb Hct MCV MCH MCHC RDW Std Deviation RDW Coeff of Robb Plt Count MPV Immature Gran % (Auto) Neut % (Auto) Lymph % (Auto) [place] % (Auto) Eos % (Auto) Baso % (Auto) Neut # (Auto) Lymph # (Auto) [place] # (Auto) Eos # (Auto) Baso # (Auto) Immature Gran # (Auto) Peripher Smr Path Cons Pending Heparin Anti-Xa, Unfract Sodium Potassium Chloride Carbon Dioxide Anion Gap BUN Creatinine Est Cr Clr Drug Dosing eGFR BUN/Creatinine Ratio Glucose Osmolality 272 L Calcium Total Bilirubin AST ALT Alkaline Phosphatase Lactate Dehydrogenase C-Reactive Protein Total Protein Albumin Globulin Albumin/Globulin Ratio Procalcitonin Urine Osmolality 272 L Ur Random Sodium < 10 Babesia Smear See Comment A C.trachomatis RNA M. genitalium (ANNE) N.gonorrhoeae RNA 01/29/25 01/30/25 01/30/25 16:03 00:16 07:17 WBC 3.59 L RBC 3.33 L Hgb 9.9 L Hct 28.8 L MCV 86.5 MCH 29.7 MCHC 34.4 RDW Std Deviation 43.6 RDW Coeff of Robb 13.8 Plt Count 116 L MPV 10.3 Immature Gran % (Auto) 2.5 Neut % (Auto) 75.8 Lymph % (Auto) 7.8 Cla[place]orne % (Auto) 6.1 Eos % (Auto) 7.2 Baso % (Auto) 0.6 Neut # (Auto) 2.72 Lymph # (Auto) 0.28 L [place] # (Auto) 0.22 Eos # (Auto) 0.26 Baso # (Auto) 0.02 Immature Gran # (Auto) 0.09 Peripher Smr Path Cons Heparin Anti-Xa, Unfract 0.17 L 0.34 0.24 L Sodium 132 L Potassium 3.9 Chloride 102 Carbon Dioxide 23 Anion Gap 7 BUN 15 Creatinine 0.83 Est Cr Clr Drug Dosing 120.8 eGFR 97.13 BUN/Creatinine Ratio 18.1 Glucose 110 H Osmolality Calcium 7.7 L Total Bilirubin 0.6 AST 37 ALT 52 Alkaline Phosphatase 185 H Lactate Dehydrogenase 274 H C-Reactive Protein 23.09 H Total Protein 5.5 L Albumin 2.7 L Globulin 2.8 Albumin/Globulin Ratio 1.0 Procalcitonin Pending Urine Osmolality Ur Random Sodium Babesia Smear C.trachomatis RNA M. genitalium (ANNE) N.gonorrhoeae RNA Medications Administered Medication List Acetaminophen (Acetaminophen 325 Mg Tab) 650 mg PO Q6H ELIEZER Stop: 02/26/25 15:37 Last Admin: 01/30/25 02:56 Dose: Not Given Documented By: [facility] Admin: 01/29/25 21:36 Dose: Not Given Documented By: Admin: 01/29/25 16:19 Dose: 650 mg Documented By: Admin: 01/29/25 08:09 Dose: 650 mg Documented By: Admin: 01/29/25 03:43 Dose: Not Given Documented By: Admin: 01/28/25 21:21 Dose: 650 mg Documented By: Admin: 01/28/25 15:22 Dose: 650 mg Documented By: Admin: 01/28/25 08:18 Dose: 650 mg Documented By: Admin: 01/28/25 04:51 Dose: Not Given Documented By: Admin: 01/27/25 20:13 Dose: Not Given Documented By: Admin: 01/27/25 16:42 Dose: 650 mg Documented By: RT Atovaquone (Atovaquone 750 Mg/5 Ml Udc) 750 mg PO Q12H ELIEZER Stop: 02/27/25 16:29 Last Admin: 01/30/25 05:48 Dose: 750 mg Documented By: Admin: 01/29/25 18:01 Dose: 750 mg Documented By: Admin: 01/29/25 05:22 Dose: 750 mg Documented By: Admin: 01/28/25 18:32 Dose: 750 mg Documented By: RT Cyclobenzaprine HCl (Cyclobenzaprine Hcl 10 Mg Tab) 10 mg PO DAILY PRN PRN Reason: muscle spasm, pain Stop: 02/26/25 15:37 Last Admin: 01/29/25 09:59 Dose: 10 mg Documented By: Admin: 01/28/25 08:17 Dose: 10 mg Documented By: RT Finasteride (Finasteride 5 Mg Tab) 5 mg PO DAILY ELIEZER Stop: 02/27/25 08:59 Last Admin: 01/30/25 08:44 Dose: 5 mg Documented By: Admin: 01/29/25 08:07 Dose: 5 mg Documented By: Admin: 01/28/25 08:15 Dose: 5 mg Documented By: RT Azithromycin (Zithromax) 500 mg in 255 mls @ 127.5 mls/hr IV Q24H ELIEZER Stop: 02/04/25 16:29 Last Infusion: 01/29/25 18:56 Dose: Infused Documented By: Admin: 01/29/25 16:47 Dose: 127.5 mls/hr Documented By: Infusion: 01/28/25 21:03 Dose: Infused Documented By: Admin: 01/28/25 18:31 Dose: 127.5 mls/hr Documented By: RT Heparin Sodium/Dextrose (Heparin 32129 Unit/500 Ml D5w) 25,000 units in 500 mls @ 24 mls/hr IV .[id number] ELIEZER; Protocol Stop: 02/28/25 09:44 Last Admin: 01/30/25 08:42 Dose: 1,200 units/hr, 24 mls/hr Documented By: EP Co-signed By: TAYLA Titration: 01/30/25 08:07 Dose: Infused Documented By: EP Co-signed By: MTP Titration: 01/29/25 19:25 Dose: 1,200 units/hr, 24 mls/hr Documented By: LMMinda Co-signed By: EP Titration: 01/29/25 18:02 Dose: 1,200 units/hr, 24 mls/hr Documented By: EP Co-signed By: MTP Admin: 01/29/25 09:56 Dose: 1,000 units/hr, 20 mls/hr Documented By: EP Co-signed By: MTP Diltiazem HCl 125 mg/ Dextrose 125 mls @ 5 mls/hr IV .Q24H ELIEZER; Protocol Stop: 02/28/25 09:29 Last Admin: 01/30/25 08:45 Dose: Not Given Documented By: Titration: 01/29/25 18:04 Dose: Infused Documented By: EP Co-signed By: MTP Admin: 01/29/25 09:53 Dose: 5 mg/hr, 5 mls/hr Documented By: GREER Co-signed By: TAYLA Melatonin (Melatonin 3 Mg Tab) 3 mg PO HS PRN PRN Reason: Insomnia Stop: 02/26/25 15:37 Last Admin: 01/28/25 23:44 Dose: 3 mg Documented By: Admin: 01/28/25 21:21 Dose: 3 mg Documented By: Admin: 01/27/25 20:23 Dose: 3 mg Documented By: CLIFFORD Morphine Sulfate (Morphine Sulfate 2 Mg/Ml Carp) 2 mg IV Q3H PRN PRN Reason: Pain Stop: 02/12/25 17:02 Last Admin: 01/30/25 07:38 Dose: 2 mg Documented By: Admin: 01/29/25 21:36 Dose: 2 mg Documented By: Admin: 01/29/25 18:03 Dose: 2 mg Documented By: GREER Multi-Ingredient Mouthwash/Gargle (First - Mouthwash Blm 5 Ml Udp) 5 ml PO Q4H PRN PRN Reason: mouth pain Stop: 02/28/25 16:29 Last Admin: 01/30/25 07:40 Dose: 5 ml Documented By: Admin: 01/29/25 18:03 Dose: 5 ml Documented By: GREER Ondansetron HCl (Ondansetron Inj 2 Mg/Ml 2 Ml Vial) 4 mg IV Q6H PRN PRN Reason: Nausea Stop: 02/26/25 15:37 Last Admin: 01/27/25 20:12 Dose: 4 mg Documented By: CLIFFORD Phenol (Chloraseptic (Phenol) 1.4% Soln 180 Ml Btl) 1 sprays MT Q2H PRN PRN Reason: Sore Throat Stop: 02/26/25 17:03 Last Admin: 01/28/25 08:21 Dose: 1 sprays Documented By: Admin: 01/27/25 18:02 Dose: 1 sprays Documented By: ROBBI Polyethylene Glycol (Polyethylene (Miralax) 17 Gm Pack) 17 gm PO DAILY PRN PRN Reason: Constipation Stop: 02/26/25 15:37 Last Admin: 01/28/25 08:18 Dose: 17 gm Documented By: RT Sertraline HCl (Sertraline Hcl 100 Mg Tablet) 100 mg PO DAILY [facility] Stop: 02/27/25 08:59 Last Admin: 01/30/25 08:45 Dose: 100 mg Documented By: Admin: 01/29/25 08:07 Dose: 100 mg Documented By: Admin: 01/28/25 08:15 Dose: 100 mg Documented By: RT Tramadol HCl (Tramadol Hcl 50 Mg Tablet) 50 mg PO Q4H PRN PRN Reason: Pain Stop: 02/26/25 15:37 Last Admin: 01/29/25 16:19 Dose: 50 mg Documented By: Admin: 01/28/25 08:17 Dose: 50 mg Documented By: Admin: 01/27/25 20:12 Dose: 50 mg Documented By: CLIFFORD Discontinued Medications Diltiazem HCl (Diltiazem Hcl 5 Mg/Ml 5 Ml Vial) 10 mg IV NOW STA Stop: 01/29/25 09:21 Last Admin: 01/29/25 09:34 Dose: 10 mg Documented By: EP Co-signed By: TAYLA Diphenhydramine HCl (Diphenhydramine 50 Mg/Ml Vial) 25 mg IV NOW STA Stop: 01/27/25 11:35 Last Admin: 01/27/25 11:57 Dose: 25 mg Documented By: KAILEY Diphenhydramine HCl (Diphenhydramine Capsule 25 Mg Cap) 25 mg PO ONE ONE Stop: 01/28/25 21:01 Last Admin: 01/28/25 22:20 Dose: 25 mg Documented By: ALVIN Heparin Sodium (Porcine) (Heparin Sod (Porcine) 1000 Unit/Ml) 4,000 units IV NOW ONE Stop: 01/29/25 18:06 Last Admin: 01/29/25 18:23 Dose: 4,000 units Documented By: EP Co-signed By: PRISCILLA Heparin Sodium/Dextrose (Heparin Iv Adult Wt-Based Low-Dose *No* Initial Bolus Protocol) 1 each IV ONE STA; Protocol Stop: 01/29/25 09:02 Last Admin: 01/29/25 10:00 Dose: Not Given Documented By: GREER Sodium Chloride (Nss) 1,000 mls @ 999 mls/hr IV .Q1H1M ONE Stop: 01/27/25 12:17 Last Infusion: 01/27/25 13:32 Dose: Infused Documented By: Admin: 01/27/25 11:56 Dose: 999 mls/hr Documented By: KAILEY Acetaminophen (Ofirmev) 1,000 mg in 100 mls @ 400 mls/hr IV NOW STA Stop: 01/27/25 12:01 Last Infusion: 01/27/25 13:07 Dose: Infused Documented By: Admin: 01/27/25 11:56 Dose: 400 mls/hr Documented By: KAILEY Ceftriaxone Sodium (Rocephin) 2,000 mg in 50 mls @ 100 mls/hr IV NOW STA Stop: 01/27/25 13:23 Last Infusion: 01/27/25 13:49 Dose: Infused Documented By: Admin: 01/27/25 13:14 Dose: 100 mls/hr Documented By: KAILEY Doxycycline Hyclate 100 mg/ (Dextrose) 100 mls @ 50 mls/hr IV NOW STA Stop: 01/27/25 14:53 Last Infusion: 01/27/25 15:38 Dose: Infused Documented By: Admin: 01/27/25 13:37 Dose: 50 mls/hr Documented By: KAILEY Ceftriaxone Sodium (Rocephin) 2,000 mg in 50 mls @ 100 mls/hr IV Q24H ELIEZER Stop: 02/04/25 12:59 Last Infusion: 01/29/25 14:37 Dose: Infused Documented By: Admin: 01/29/25 13:42 Dose: 100 mls/hr Documented By: Infusion: 01/28/25 13:58 Dose: Infused Documented By: Admin: 01/28/25 12:50 Dose: 100 mls/hr Documented By: RT Doxycycline Hyclate 100 mg/ (Dextrose) 100 mls @ 50 mls/hr IV Q12H ELIEZER Stop: 02/10/25 20:59 Last Infusion: 01/28/25 10:51 Dose: Infused Documented By: Admin: 01/28/25 08:15 Dose: 50 mls/hr Documented By: Infusion: 01/27/25 22:28 Dose: Infused Documented By: Admin: 01/27/25 20:13 Dose: 50 mls/hr Documented By: CLIFFORD Sodium Chloride (Nss) 1,000 mls @ 125 mls/hr IV .Q8H ELIEZER Stop: 01/30/25 08:44 Last Infusion: 01/30/25 08:28 Dose: Infused Documented By: Admin: 01/30/25 00:25 Dose: 125 mls/hr Documented By: Infusion: 01/30/25 00:24 Dose: Infused Documented By: Infusion: 01/30/25 00:24 Dose: 125 mls/hr Documented By: Admin: 01/29/25 16:50 Dose: 125 mls/hr Documented By: Infusion: 01/29/25 16:07 Dose: Infused Documented By: Admin: 01/29/25 08:07 Dose: 125 mls/hr Documented By: Infusion: 01/29/25 08:07 Dose: Infused Documented By: Admin: 01/29/25 02:02 Dose: 125 mls/hr Documented By: Infusion: 01/29/25 02:02 Dose: Infused Documented By: Admin: 01/28/25 18:31 Dose: 125 mls/hr Documented By: RT Ioversol (Optiray 320 100ml) 94 ml IV ONCE ONE Stop: 01/28/25 14:26 Last Admin: 01/28/25 14:26 Dose: 94 ml Documented By: VERNON Ketorolac Tromethamine (Ketorolac Tromethamine 15 Mg/Ml Vial) 15 mg IV NOW STA Stop: 01/27/25 11:35 Last Admin: 01/27/25 11:58 Dose: 15 mg Documented By: KAILEY Ketorolac Tromethamine (Ketorolac Tromethamine 15 Mg/Ml Vial) 15 mg IV Q6H PRN PRN Reason: Pain Last Admin: 01/29/25 10:07 Dose: 15 mg Documented By: Admin: 01/28/25 21:21 Dose: 15 mg Documented By: Admin: 01/28/25 15:22 Dose: 15 mg Documented By: Admin: 01/28/25 10:13 Dose: 15 mg Documented By: RT Lidocaine HCl (Lidocaine Viscous 2% 15 Ml Udc) 15 ml MT NOW ONE Stop: 01/28/25 21:48 Last Admin: 01/28/25 22:20 Dose: 15 ml Documented By: ALVIN Lidocaine HCl (Lidocaine Viscous 2% 15 Ml Udc) 15 ml MT NOW ONE Stop: 01/29/25 05:43 Last Admin: 01/29/25 06:00 Dose: 15 ml Documented By: GEOVANNA Melatonin (Melatonin 3 Mg Tab) 3 mg PO HS ONE Stop: 01/28/25 23:51 Last Admin: 01/29/25 00:46 Dose: Not Given Documented By: GEOVANNA Metoclopramide HCl (Metoclopramide Hcl Inj 5 Mg/Ml 2 Ml Vial) 5 mg IV ONE ONE Stop: 01/27/25 11:35 Last Admin: 01/27/25 11:58 Dose: 5 mg Documented By: KAILEY Metoprolol Tartrate (Metoprolol Tartrate 1 Mg/Ml Vial) 5 mg IV NOW STA Stop: 01/29/25 08:34 Last Admin: 01/29/25 09:15 Dose: 5 mg Documented By: GREER Tramadol HCl (Tramadol Hcl 50 Mg Tablet) 100 mg PO NOW STA Stop: 01/27/25 15:08 Last Admin: 01/27/25 15:57 Dose: 100 mg Documented By: PG Care Time/CCT Total # of Minutes Spent Total Time Spent with Patient: Total time spent is greater than 50% in coordination of care (as documented) at patient's floor/unit and/or counseling patient:35 [place] [address] SUB INP/OBS CARE 3/50MIN Patient Type Established History Detailed Exam Detailed Medical Decision Making High Complexity Diagnoses Atrial fibrillation, new onset I48.91 Atrial fibrillation with RVR I48.91 Elevated troponin R79.89 Acute febrile illness R50.9 SIRS (systemic inflammatory response syndrome) R65.10
--- NOTE | 2025-01-30 12:06 | Hospitalist Progress Note ---
Date of Service January 30, 2025 Assessment & Plan (1) Fever and chills: (2) Arthralgia: (3) Pancytopenia: (4) At high risk for tick borne illness: Plan 65 y/o with polyarthralgias/myalgias and fevers to 101, pharyngitis, rash, headache. Started . Seen in urgent care Sunday started doxycycline suspected tickborne illness, started doxycycline with no improvement. 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 Rash started after taking the doxy but has not been outside and is in non sun-exposed areas. Rash not itchy or painful no vesicles. Located R>L neck, upper back and chest, arms and thighs, no palm/soles lesions. No sick contacts. No GI or illness in past month, no penile discharge. Has had neck pain and headache but no meningeal signs on exam. # acute illness with fever, arthralgias/myalgias, headache, rash, pancytopenia. Tmax at home 101 and in ED 38.0 does not look severely ill based on vital signs and labs, but is extremely miserable with the arthralgias/myalgias. CK was low, not in rhabdo. probably viral infection but could be tickborne. Consulted ID - ddx includes tickborn illness, viral infection, atypical bacterial/fungal infection, reactive arthritis or other rheumatologic process - concern for rheumatologic process with + RF, ? Stills disease - STI testing HIV, patient's GC/CT negative Rheumatology consulted - timeline abrupt for adult onset still's disease, Suspect infectious process. Could be HLH. If counts dont improve consider bone marrow bx. Could also consider low dose prednisone if joint pain not improving, but thankfully it has Blood cultures negative at 48 hours - CTX discontinued Peripheral smear unrevealing Pain control: tylenol, prn tramadol, prn morphine viral - -influenza and COVID biofire negative, monospot negative. EBV indicative of past infection. HIV negative Pending: CMV serology, parvovirus B19 serology tickborne - expect rash with Ehrlichiosis or RMSF, anaplasmosis/babesiosis PCR pending, lyme screen neg Doxycyline stopped. Started empiric azithromycin and atoviquone for possible babieosis repeat smear suspicious for babesia but on recheck thought to be more artifiact CRP and procal are down trending. #New onset afib Started on cardizem drip and spontaneously converted to NSR. Continue to monitor tele On heparin drip - convert to eliquis at discharge Cardiology consulted - recommend 30 day monitor at discharge Mag/K replete #thrombocytopenia, elevated LDH, elevated LFTs and with drop in hgb, elevated T bilirubin and elevated LDH-concern for hemolysis empiric babesiosis tx as above trending LDH - starting to downtrend, LFTs also improve trend CBC and CMP #hyponatremia likely related to acute illness - serum osm 272, urine osm 272 and urine sodium <10 - appears hypovolemic, continue to hydrate with NSS this is improving - Na 132, appetite is improving, no further fluids AM BMP # mildly elevated HS-troponin, normal EKG - myocardial demand ischemia related to above acute illness. No chest pain and no e/o ACS Troponin peaked at 435, echo without Regional wall motion abnormalities. Patient reports normal heart cath 07/2024 at [facility] # history of widespread myofascial pain syndrome, osteoarthritis - has been seen by Rheumatology and followed by pain management #BPH - continue finasteride #mood disorder - continue sertraline DVT ppx - heparin drip Dispo: continued inpatient stay on PCU for continued IV antibiotics and pain/symptom control Discussed case with ID Admission and Anticipated Discharge Date Admission Date: January 28, 2025 Supervising Physician Co-Signing Physician Notes PA Supervision Note: I did not personally see or examine the patient today, but I verified all bell points of LATESHA Damon's assessment and plan with the following exceptions/additions: None Subjective Patient seeen lying in bed, stating he was finally able to get some sleep last night. Feels about 40% better joint pain is decreasing no more chills or sweats does still have the mouth pain Tele - SR 70s since converting out of afib yesterday Review of Systems Review of Systems: All systems reviewed & are unremarkable except as noted in Subjective Physical Exam Physical Exam: General: NAD, VS as above, lying in bed, appears better than yesterday HEENT: MM dry, white lesion on inside of lip Resp: normal respiratory effort, lungs clear to auscultation CV: afib , no murmur, Abd: normal bowel sounds, non tender, no hepatosplenomegaly Extremities: Moves all extremities, no edema Neuro: A&O x3, Skin: intact, . Rash more prevalent on the top of his chest, with some spots on his anterior thighs - more dark purple/violaceous appearance compared to yesterday. Distribution is the same, not on the palms or soles. Results & Data Results & Data Vital Signs (Past 12 Hours) Vital Signs Temp Pulse Pulse Pulse Resp BP Pulse Ox 01/30/25 11:20 97.9 F 77 20 117/77 94 01/30/25 08:28 99.9 F H 81 21 122/77 93 01/30/25 07:16 88 01/30/25 03:17 98.1 F 88 19 140/88 94 O2 Del Method 01/30/25 11:20 Room Air 01/30/25 08:28 Room Air 01/30/25 07:16 01/30/25 03:17 Room Air Laboratory Results cbc, chemistry and procal reviewed peripheral smear reviewed PG Care Time/CCT Total # of Minutes Spent Total Time Spent with Patient: Total time spent is greater than 50% in coordination of care (as documented) at patient's floor/unit and/or counseling patient: Coding Level of Care Code 09874 SUB INP/OBS CARE 3/50MIN Diagnoses Fever and chills R50.9 Arthralgia, unspecified joint M25.50 Joint pain location: unspecified Pancytopenia D61.818 At high risk for tick borne illness Z91.89 (2) Arthralgia Joint pain location: unspecified Qualified Code(s): M25.50 - Pain in unspecified joint
[2025-01-30] MEDS: DOCUSATE SODIUM/SENNA 50/8.6MG TAB PO SCH (15:08)
--- NOTE | 2025-01-30 15:33 | Infectious Disease Progress Nt ---
Date of Service January 30, 2025 Assessment & Plan (1) Fever and chills: (2) Thrombocytopenia: (3) Pancytopenia: (4) Joint pain: Plan ID Problem List: # Fever, arthralgias/myalgias # Rash # Sore throat # Elevated transaminases # Pancytopenia # History of widespread myofascial pain syndrome, osteoarthritis follows with rheumatology and pain management # History of positive RF (76) in 05/2023 Impression: Jarvis Campbell is a 65-year-old man with history of OA s/p L hip replacement 2020 and arthralgais of bilateral hands/feet presumed to be from OA (though follows with rheum, history of + rheumatoid factor), chronic cervical pain undergoing trigger point injections, BPH, who presents to [facility] on 01/26 with polyarthralgias, myalgias, fevers, and rash, after having recently been started on doxycycline on Sat 01/24 for suspected tickborne illness. ID is consulted for fever and rash. The patient began having fevers, chills, polyarthralgias, and myalgias, starting on 01/22, and he reports that his symptoms came on very rapidly. This progressed to include significant sweating and shaking. He was seen in urgent care on Sat 01/24 and was started on doxycycline for suspected tickborne illness. He developed a sore throat over the weekend (he believes after doxycycline) where he feels 10/10 pain with swallowing and also feels like his lips are slightly painful. He also developed neck pain and a headache. He also developed a rash over the weekend (after having started doxycycline) but reports that he has not been in direct sun. The rash is located in his R > L neck, upper back, and chest, trunk, arms, and thighs (including areas that were covered by clothing); no lesions on palms/soles, nonpruritic, non-painful, and without vesicles. He has continued to have fevers (Tmax 101F at home) and his rash did not improve. He has been on doxycycline since 01/24 and has continued to take this medication without improvement. In the ED, T38, WBC 4.52 (ALC low at 270) Hgb 13.9 plt 119 Cr 1.12 AST 49 ALT 102 procal 1.10. CK 85. UA with 0-5 WBCs, 0-2 RBCs. EKG with NSR, VT [address] head without acute findings, CXR clear. He was started on ceftriaxone and continued on doxycycline. Also with mildly elevated troponin, currently attributed to demand ischemia. On 01/28, T37.4 in AM, his labs showed worsening pancytopenia with WBC 3.77 (ALC 300) Hgb 10.6 plt 86. AST 40 ALT 66 ALP 200. He reports that he feels much worse since his symptoms started, and has significant aching pains in every joint especially his bilateral shoulders, hips, and knees, to the point that it is difficult to walk. Reports a dry cough, some nausea but no abdominal pain or diarrhea; no chest pain, no numbness and tingling; some dizziness. He has ongoing throat pain and profuse sweating. He is frequently outdoors[place] He recalls several mosquito bites. Has not noticed any tick bites. 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 No sick contacts, no contact with young children. He is currently sexually active with his girlfriend, who is a new partner as of ~5 months prior (last sexually active 01/16). No GI/ symptoms in the past month, no penile discharge. He has a pet dog; no other exposure to animals including no livestock or wild animals. No recent travel out of the [facility]. He last hunted during deer season (May 2024) and last [place] 01[place]16 weekend. The patient was evaluated by outpatient rheumatology starting in 05/2023 for 8 years of pain of multiple joints, including the L > R hips (s/p L hip replacement in 2020), and pain in the bilateral hands and bilateral feet. He has been presumed to have osteoarthritis, however testing in 2022 did show a positive rheumatoid factor (76) raising questions about underlying rheumatoid arthritis. He has been having axial neck tenderness, undergoing trigger point injections to his cervical muscles (01/02/25 underwent ropivacaine/Kenalog/ ketorolac injections to his left upper cervical paravertebral, left scalene, left levator scapulae, mid trapezius, right cervical paravertebral, right scalene, and right trapezius muscles). Discussion The patient presents with fevers, diffuse arthralgias/myalgias, sore throat, headaches, rash, and sweating, of unclear etiology. The fevers are low-grade. He has pancytopenia with mild leukopenia and significant thrombocytopenia. Normal CK. Exam from 01/28 showing maculopapular rash, especially confluent in neck (sparing face) and shoulders; more distinct scattered lesions on trunk, chest, upper thighs. Nonpruritic/nontender. Sparing palms and soles. Hands with swollen appearance. Bilateral knees very tender to palpation but without obvious joint effusion/swelling/erythema. Maybe his bottom lip is a bit swollen, no oropharyngeal erythema. The cause of this patients presentation is currently unclear. Ddx includes tickborne illness (though no improvement and having worsening after several days of doxycycline), viral infection, atypical bacterial/fungal infection, reactive arthritis (though no specific GI/ symptoms recently), other rheumatologic/inflammatory process (noting pt with chronic arthritis and cervical pain and has a history of + RF) including adult-onset Stills disease. Pt with new girlfriend of ~5 months; HIV neg, GC/CT and mycoplasma neg. His presentation seems less likely to represent a serious typical bacterial infection/bacterial sepsis, given that it has occurred for many days and that he is otherwise clinically stable (albeit highly symptomatic). Thus far, workup includes negative Lyme screen, negative Anaplasma/Babesia smear, negative HIV, negative monospot, and negative rapid Strep. Many infectious studies are still pending as below. CT A/P showing splenomegaly. Pts smear on 01/29 preliminarily with suspicion for Babesia however on recheck it appeared to be a possible artifact at this time no definitive e/o Babesia on smear. On 01/28, with worsening anemia and tbili, LDH elevation, and worsening thrombocytopenia. Furthermore, there has been a high prevalence of local Babesia cases recently. On 01/29, pt continues to remain symptomatic though plts remained stable at 85; also reported a worsening rash. On 01/30, while on atovaquone + azithromycin, pt with normal transaminases, WBC 3.59, plt improved to 116. Stopped ceftriaxone given BCx NGTD and low suspicion for a bacterial process. His improvement may be from atovaquone + azithromycin, or from a self-resolving process (e.g., viral). Agree with continuing atovaquone + azithromycin for empiric treatment of babesiosis. Doxycycline stopped given lack of clinical improvement and negative Anaplasma testing, though would have low threshold to restart and complete a course. The patients fingers appear to have dactylitis. Given the patients history of chronic arthritis (attributed to OA, but with + RF and with worsening axial/cervical symptoms recently), suspect that the patient could have an underlying rheumatologic condition such as RA. Also consider possibility of adult-onset Stills disease, and would recommend rheumatology evaluation. Recommendations: - Continue atovaquone 750 mg PO BID + azithromycin 500 mg IV daily (can change to PO) for possible babesiosis, while awaiting Babesia Ab and PCR. If positive testing or high suspicion, anticipate completing a 7-day course (01/2802/04/25) - Stop ceftriaxone - Doxycycline held given lack of clinical improvement and negative Anaplasma testing, though would have low threshold to restart and complete a course - F/u: Babesia PCR, parvovirus B19 Ab, CMV Ab, Q fever Ab, HIV RNA, Histo UrAg, Rickettsial panel, HCV Ab, WNV serum IgM and PCR JC, ANCA, RF - Appreciate rheumatology evaluation, including for evaluation of possible Stills disease - Negative HbsAb, non-immunity to hep B, would consider revaccination ID will continue to follow. Please contact us with any questions. Over the weekend, the on-call ID provider can be reached at [phone] for urgent/time-sensitive questions. Dr. Jackie Bolivar will resume care of the ID service on Sunday. Ernestine Burgess MD, S Infectious Diseases [facility]/ID Connect ID Connect direct line: [phone] Admission and Anticipated Discharge Date Admission Date: January 28, 2025 Subjective This patient recommendation is based on a telemedicine consult request which was completed asynchronously through chart review and information provided by the primary physician. The patient was not seen or examined today. The evaluation is consultative in nature and all patient care and treatment decisions can either be accepted or rejected by the patient's primary hospital-based treating physician using their own independent medical judgment for their patient. Time Spent Reviewing Chart: 31+ minutes - T38.3 yesterday, T37.7 this AM - Pts rash worsening on 01/29 - Spontaneously converted from afib back to NSR - On 01/30 pt with improved arthralgias and pain - Discusse with primary team, pts smear on 01/29 preliminarily with suspicion for Babesia however on recheck it appeared to be a possible artifact at this time no definitive e/o Babesia on smear. Results & Data Vital Signs (Past 12 Hours) Vital Signs Temp Pulse Pulse Resp BP Pulse Ox O2 Del Method 01/30/25 11:20 36.6 C 77 20 117/77 94 Room Air 01/30/25 08:28 37.7 C H 81 21 122/77 93 Room Air 01/30/25 07:16 88 Diagnostic Findings Diagnostics: 01/28 CT A/P FINDINGS: The lung bases demonstrates changes consistent with UIP. There are no focal liver lesions identified. The portal vein is patent. There is no ascites. The gallbladder and bile ducts are unremarkable. There are no adrenal, pancreatic, or renal lesions are identified. There is no hydronephrosis. There is splenomegaly. There is a tiny calcification in the spleen is most likely a small granuloma. There is no aortic aneurysm or periaortic adenopathy. No bowel obstruction or free air. There is colonic diverticulosis with no evidence of diverticulitis or colitis. In the pelvis, the appendix is normal. There is no fluid in the cul-de-sac. Unopacified urinary bladder is grossly negative although visualization is hampered by spray artifact from a left hip prosthesis. IMPRESSION: Nonspecific splenomegaly. Bibasilar lung changes consistent with UIP. Micro Data: 01/29 Babesia smear: possible report of prelim inclusions, however on re-review the findings were felt to be artifact, please see lab comment for further details. 01/28 ferritin: 1219.5 01/28 GC/CT urine: neg for both 01/28 M. genitalium ANNE: neg 01/28 Histo UrAg: PEND 01/28 JC: PEND; ANCA: PEND; RF: PEND 01/28 GC/CT urine: neg 01/28 Syphilis Ab: neg 01/28 HIV: neg; HIV RNA: PEND 01/28 WNV Ab: PEND; WNV PCR: PEND 01/28 Q fever Ab (repeat): PEND 01/28 Typhus fever Ab (repeat): PEND 01/28 Rickettsial Ab panel: PEND 01/28 hep C Ab: neg 01/28 hep B core total Ab: neg; HBsAg: neg; HBsAb: neg (non-immune) 01/27 parvovirus Ab: PEND 01/27 CMV Ab: PEND 01/27 Babesia/Anaplasma smear: neg 01/26 Babesia/Anaplasma smear: neg 01/27 RVP: neg 01/27 group A Strep throat swab: neg 01/27 EBV Ab: Capsid IgG positive, capsid IgM neg, early Ag IgG neg, EBNA IgG positive 01/27 mono screen: neg 01/27 BCx x2: NGTD 01/26 Ehrlichia PCR: neg 01/26 Babesia PCR: PEND 01/26 Anaplasma DNA: neg 01/26 Lyme screen: neg 01/26 Typhus fever Ab: PEND 01/26 Q fever Ab: PEND Antibiotic Summary: atovaquone (01/28 present) azithromycin (01/28 present) ceftriaxone (01/27 01/29) doxycycline (01/24 01/28)
[2025-01-30 16:06] LABS: ANTI-Xa, UFH(UnfractionatedHep 0.28 IU/ml (0.3-0.7)
[2025-01-31 00:19] LABS: ANTI-Xa, UFH(UnfractionatedHep 0.26 IU/ml (0.3-0.7)
[2025-01-31 06:31] LABS: Hematocrit (blood only) 29.4 % (42.0-52.0); Hemoglobin 10.0 g/dl (14.0-18.0); Mean Corpuscular Hemoglobin 29.9 pg (25.0-34.0); Mean Corpuscular Volume 87.8 fL (80.0-100.0); Platelet Count 139 K/uL (130-400); RDW Standard Deviation 44.5 fL (36.4-46.3); Red Blood Count 3.35 M/uL (4.70-6.10); White Blood Count 3.56 K/ul (4.8-10.8)
[2025-01-31 06:32] LABS: ANTI-Xa, UFH(UnfractionatedHep 0.26 IU/ml (0.3-0.7)
[2025-01-31 07:02] LABS: Alanine Aminotransferase 45.0 U/L (7-52); Albumin Globulin Ratio 1.0 (0.9-2); Alkaline Phosphatase 166.0 U/L (34-104); Anion Gap 6.0 (3-11); Bilirubin,Total 0.6 mg/dl (0.2-1.0); Blood Urea Nitrogen 13.0 mg/dl (6-23); Calcium 8.1 mg/dl (8.6-10.3); Carbon Dioxide 26.0 mmol/L (21-32); Chloride 105.0 mmol/L (98-107); Creatinine Clr Calc Pharmacy 126.9 ml/min; Globulin 2.8 gm/dl (2.5-4.0); Glucose 117.0 mg/dl (70-99(Fasting)); Potassium 3.7 mmol/L (3.5-5.1); Sodium 137.0 mmol/L (136-145); Total Protein 5.5 gm/dl (6.0-8.3)
[2025-01-31 07:28] LABS: Immature Granulocytes # (auto) 0.18 K/uL (0.01-0.20); Immature Granulocytes % (auto) 5.1 %; Polychromasia 1+; Toxic Granulation 1+
--- NOTE | 2025-01-31 10:40 | Hospitalist Progress Note ---
Date of Service January 31, 2025 Assessment & Plan (1) Fever and chills: (2) Arthralgia: (3) Pancytopenia: (4) At high risk for tick borne illness: Plan 65 y/o with polyarthralgias/myalgias and fevers to 101, pharyngitis, rash, headache. Started . Seen in urgent care Sunday started doxycycline suspected tickborne illness, started doxycycline with no improvement. 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 Rash started after taking the doxy but has not been outside and is in non sun-exposed areas. Rash not itchy or painful no vesicles. Located R>L neck, upper back and chest, arms and thighs, no palm/soles lesions. No sick contacts. No GI or illness in past month, no penile discharge. Has had neck pain and headache but no meningeal signs on exam. # acute illness with fever, arthralgias/myalgias, headache, rash, pancytopenia. Tmax at home 101 and in ED 38.0 CK was low, not in rhabdo. probably viral infection but could be tickborne. Consulted ID - ddx includes tickborn illness, viral infection, atypical bacterial/fungal infection, reactive arthritis or other rheumatologic process - concern for rheumatologic process with + RF, ? Stills disease - STI testing HIV, patient's GC/CT negative Rheumatology consulted - timeline abrupt for adult onset still's disease, Suspect infectious process. Could be HLH. If counts dont improve consider bone marrow bx. Could also consider low dose prednisone if joint pain not improving, but thankfully it has Blood cultures negative at 48 hours - CTX discontinued Peripheral smear unrevealing Pain control: tylenol, prn tramadol, prn morphine viral - -influenza and COVID biofire negative, monospot negative. EBV indicative of past infection. HIV negative Pending: CMV serology, parvovirus B19 serology tickborne - expect rash with Ehrlichiosis or RMSF, anaplasmosis/babesiosis PCR pending, lyme screen neg Doxycyline stopped. Started empiric azithromycin and atoviquone for possible babieosis repeat smear suspicious for babesia but on recheck thought to be more artifact Pt hep B testing shows non-immune, consider repeat immunization ouptaient CRP and LFTs and LDH are down trending. Slow clincal improvement, main complaint is now his lip pain - denies hx of HSV but lesions suspicious and worsening, will trial valtrex for impovement #New onset afib Started on cardizem drip and spontaneously converted to NSR. Continue to monitor tele On heparin drip - will convert to eliquis this evening Cardiology consulted - recommend 30 day monitor at discharge Mag/K replete #thrombocytopenia, elevated LDH, elevated LFTs and with drop in hgb, elevated T bilirubin and elevated LDH-concern for hemolysis empiric babesiosis tx as above trending LDH - starting to downtrend, LFTs and platelets also improved trend CBC and CMP #hyponatremia - resolved likely related to acute illness - serum osm 272, urine osm 272 and urine sodium <10 - appears hypovolemic, continue to hydrate with NSS this improved to 137 # mildly elevated HS-troponin, normal EKG - myocardial demand ischemia related to above acute illness. No chest pain and no e/o ACS Troponin peaked at 435, echo without Regional wall motion abnormalities. Patient reports normal heart cath 07/2024 at [facility] # history of widespread myofascial pain syndrome, osteoarthritis - has been seen by Rheumatology and followed by pain management #BPH - continue finasteride #mood disorder - continue sertraline DVT ppx - heparin drip then eliquis Dispo: continued inpatient stay on PCU for continued IV antibiotics and pain/symptom control Admission and Anticipated Discharge Date Admission Date: January 28, 2025 Supervising Physician Co-Signing Physician Notes LATESHA Supervision Note: I did not personally see or examine the patient today, but I verified all bell points of LATESHA Damon's assessment and plan with the following exceptions/additions: May have caffeine withdrawal headache-will see if he usually driks caffeine at home-liberalize caffeine or consider fioricet Subjective patient seen resting in bed, visitor present at bedside. Patient reports that he is feeling about the same as yesterday, not any better or worse. Joint pain is about 90% gone. States that his main concern is his mouth pain and headache. Headache is on both sides feels like pressure, worse with sneezing. No sinus congestion. No photophobia or vision changes. Does not normally get migraines at home. Ambulated in the [place] yesterday, denies lightheadedness or dizziness. Does not feel like he was fatiguing easily. Telemetry sinus rhythm 60s and 70s Review of Systems Review of Systems: All systems reviewed & are unremarkable except as noted in Subjective Physical Exam Physical Exam: General: NAD, VS as above, lying in bed, HEENT: MM dry, white lesion on inside of lip Resp: normal respiratory effort, lungs clear to auscultation CV: afib , no murmur, Abd: normal bowel sounds, non tender, no hepatosplenomegaly Extremities: Moves all extremities, no edema Neuro: A&O x3, Skin: intact, . Rash more prevalent on the top of his chest, with some spots on his anterior thighs - similar appearance to yesterday. Distribution is the same, not on the palms or soles. Results & Data Results & Data Vital Signs (Past 12 Hours) Vital Signs Temp Pulse Resp BP Pulse Ox O2 Del Method 01/31/25 07:22 98.1 F 64 20 118/74 96 Room Air 01/31/25 02:45 98.4 F 67 18 117/67 97 Room Air 01/30/25 22:57 98.6 F 85 18 93/56 L 90 Room Air Laboratory Results CBC and chemistry reviewed PG Care Time/CCT Total # of Minutes Spent Total Time Spent with Patient: Total time spent is greater than 50% in coordination of care (as documented) at patient's floor/unit and/or counseling patient: Coding Level of Care Code 77346 SUB INP/OBS CARE 3/50MIN Diagnoses Fever and chills R50.9 Arthralgia, unspecified joint M25.50 Joint pain location: unspecified Pancytopenia D61.818 At high risk for tick borne illness Z91.89 (2) Arthralgia Joint pain location: unspecified Qualified Code(s): M25.50 - Pain in unspecified joint
[2025-01-31] MEDS ORDERED: Nursing to Pharmacy Communication SCH (11:45)
[2025-01-31 12:47] LABS: ANTI-Xa, UFH(UnfractionatedHep 0.32 IU/ml (0.3-0.7)
[2025-01-31] MEDS: STOP ORDER - HEPARIN DRIP ONE (21:47)
[2025-01-31] MEDS: APIXABAN 5 MG TABLET PO SCH (21:47)
[2025-02-01 06:12] LABS: Hematocrit (blood only) 30.2 % (42.0-52.0); Hemoglobin 10.0 g/dl (14.0-18.0); Mean Corpuscular Hemoglobin 29.9 pg (25.0-34.0); Mean Corpuscular Volume 90.1 fL (80.0-100.0); Platelet Count 186 K/uL (130-400); RDW Standard Deviation 45.0 fL (36.4-46.3); Red Blood Count 3.35 M/uL (4.70-6.10); White Blood Count 4.53 K/ul (4.8-10.8)
[2025-02-01 06:15] LABS: ANTI-Xa, UFH(UnfractionatedHep 0.36 IU/ml (0.3-0.7)
[2025-02-01 06:45] LABS: Immature Granulocytes # (auto) 0.33 K/uL (0.01-0.20); Immature Granulocytes % (auto) 7.3 %; Polychromasia 1+; Toxic Granulation 1+
[2025-02-01 06:46] LABS: Alanine Aminotransferase 39.0 U/L (7-52); Albumin Globulin Ratio 1.0 (0.9-2); Alkaline Phosphatase 152.0 U/L (34-104); Anion Gap 5.0 (3-11); Bilirubin,Total 0.5 mg/dl (0.2-1.0); Blood Urea Nitrogen 10.0 mg/dl (6-23); Calcium 8.3 mg/dl (8.6-10.3); Carbon Dioxide 28.0 mmol/L (21-32); Chloride 105.0 mmol/L (98-107); Creatinine Clr Calc Pharmacy 122.2 ml/min; Globulin 2.8 gm/dl (2.5-4.0); Glucose 131.0 mg/dl (70-99(Fasting)); Potassium 3.8 mmol/L (3.5-5.1); Sodium 138.0 mmol/L (136-145); Total Protein 5.6 gm/dl (6.0-8.3)
[2025-02-01 07:58] VITALS: BP 127/82; PULSE 66; RESP 18; TEMP 97.7; O2SAT 95
--- NOTE | 2025-02-01 09:03 | Discharge Summary ---
Discharge Summary Date of Service February 01, 2025 Principal Dx & Hospital Course #1 = Principal Diagnosis (1) Fever and chills: (2) Arthralgia: (3) Pancytopenia: (4) At high risk for tick borne illness: Plan #Acute illness with fever, arthralgias/myalgias, headache, rash, pancytopenia - Suspected Babesia 65 y/o with polyarthralgias/myalgias and fevers to 101, pharyngitis, rash, headache. Started . Seen in urgent care Sunday started doxycycline suspected tickborne illness, with no improvement. Rash started after taking the doxy but has not been outside and is in non sun-exposed areas. Rash not itchy or painful no vesicles. No GI or illness in past month, no penile discharge. Has had neck pain and headache but no meningeal signs on exam. Consulted ID - ddx includes tickborn illness, viral infection, atypical bacterial/fungal infection, reactive arthritis or other rheumatologic process.Rheumatology consulted - timeline abrupt for adult onset still's disease, Suspect infectious process. Could be HLH. If counts dont improve consider bone marrow bx. Had extensive workup with viral - -influenza and COVID biofire negative, monospot negative. EBV indicative of past infection. HIV negative. - STI testing:GC/CT negative, mycoplasma genitalium negative. Tickborne studies with negative Lyme screen, negative anaplasmosis/Babesia smear. Multiple negative peripheral smear Pending: Babesia PCR, parvovirus B19 Ab, CMV Ab, Q fever Ab, HIV RNA, Histo UrAg, Rickettsial panel, HCV Ab, WNV serum IgM and PCR JC, ANCA, RF Blood cultures negative at 48 hours Patient was not improving on doxycycline and ceftriaxone, there was a high clinical suspicion for babesiosis despite no definitive laboratory evidence. He was switched to atovaquone and azithromycin and started to improve with d owntrending LFTs and LDH. This mainly improved his joint pains and fevers, but then his oral lesions/mouth pain got worse which was not improving with Magic mouthwash. Despite no history of HSV we trialed empiric Valtrex and he had great improvement of mouth pain/lesions in 24 hours. He is stable for discharge, should have close follow-up with PCP. Will continue course of azithromycin and atovaquone for suspected Babesia and course of Valtrex for suspected HSV Pt hep B testing shows non-immune, recommend repeat immunization outpatient #New onset afib Started on cardizem drip and spontaneously converted to NSR. heparin drip that was converted to Eliquis. Cardiology was consulted recommend a 30-day monitor and continue Eliquis during this. And they will determine if he needs lifelong Eliquis. #thrombocytopenia, elevated LDH, elevated LFTs and with drop in hgb, elevated T bilirubin and elevated LDH-concern for hemolysis. Platelets have recovered, LFTs improving only slight elevation in his alk phos at 152 on day of discharge. Suspect related to febrile illness as above. #hyponatremia - resolved likely related to acute illness - Sodium day of discharge 138 # mildly elevated HS-troponin, normal EKG - myocardial demand ischemia related to above acute illness. No chest pain and no e/o ACS. Troponin peaked at 435, echo without Regional wall motion abnormalities. Patient reports normal heart cath 07/2024 at [facility] # history of widespread myofascial pain syndrome, osteoarthritis - has been seen by Rheumatology and followed by pain management. should not be on NSAIDs while on Eliquis. Will have to follow-up with rheum if Eliquis becomes lifelong. #BPH - continue finasteride #mood disorder - continue sertraline Dispo: Discharge to home today Notes For Next Care Provider 30-day baggageman Consider hep B vaccination Medication Changes From Visit stop NSAID Eliquis twice daily for 30 days Continue course of atovaquone, azithromycin, Valtrex Admission HPI Per Admitting Provider 65 y/o with polyarthralgias/myalgias and fevers to 101, pharyngitis, rash, headache. Arthralgia/myalgia and fever/chills started . Seen in urgent care Sunday started doxycycline suspected tickborne illness. Rash developed over the weekend, after starting doxycycline but has not been in sun. No improvement, seen in ED yesterday. 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 Rash not itchy or painful no vesicles. Located R>L neck, upper back and chest, arms and thighs, no palm/soles lesions. No sick contacts. No GI or illness in past month. Has neck pain and headache. Rocephin and doxy given in ED Discharge Exam General: NAD, VS as above, sitting up in bed appears much better today HEENT: lesions on inside of lips are much smaller, no longer white coated. no erythema Resp: normal respiratory effort, lungs clear to auscultation CV: afib , no murmur, Abd: normal bowel sounds, non tender, no hepatosplenomegaly Extremities: Moves all extremities, no edema Neuro: A&O x3, Skin: intact, . Rash has greatly improved, coloration has decreased and total amount of rash has decreased Discharge Plan Discharge Items Patient Disposition: Home - Self-Care Reason For Visit: FEVER Discharge Diagnosis: Fever - suspect babesia and possible HSV Condition on Discharge: Fair Activity: Resume your previous activity Exercise/Sports: Gradually increase as tolerated Weightbearing: Full weightbearing Non-emergency contact: Primary Care Provider Call non-emergency contact if: you have any medication questions, your symptoms worsen and your rectal temperature is above 100.4 Follow-up/Referrals: Josh Ott PA-C [Physician Employment Services Director] - (follow up after 30 day monitor ) Chace Mosley DO [Outside Practitioners] - (PCP - follow up within one week ) PCP,NO [Primary Care Provider] - Diet: Heart Healthy Addtl Attending Provider Instructions: Mr. Campbell, Dwight were hospitalized after an unknown febrile illness. 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 Also thought that you have an secondary underlying viral infection, causing the mouth lesions and that has improved with empiric treatment. During the course of your stay - you flipped into an abnormal heart rhythm called afib. Thankfully with IV Cardizem you have returned to a normal rhythm and stayed in the normal rhythm. You were seen by Cardiology who recommended that you complete a 30 day heart monitor to see if you return to afib and if you will need to stay on Eliquis. Recommendations: Eliquis twice a day - next dose PM 02/01 Azithromycin 500mg PO daily - next dose 02/02 Valtrex 1000mg twice a day x 6 days Atovoquone - twice a day - next dose PM 02/01 Do not take sulindac while you are on Eliquis. 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 Please follow up with your PCP within one week. Thanks for allowing us to participate in your care! Here are some guidelines about taking Eliquis: Increased risk of blood clots if you stop taking Eliquis. Do not stop taking Eliquis without talking to your doctor.. Stopping Eliquis increases your risk of having a stroke. Increased risk of bleeding. Eliquis can cause bleeding which can be serious and may lead to . This is because Eliquis is a blood thinner medicine (anticoagulant) that lowers blood clotting. During treatment with Eliquis you are likely to bruise more easily, and it may take longer for bleeding to stop. * If you ever cannot get bleeding to stop please report to the ER * If you have a bruise that is large/painful or swollen you should also be seen by a medical provider Call your doctor or get medical help right away if you or your child develop any of these signs or symptoms of bleeding: unexpected bleeding or bleeding that lasts a long time, such as: * nose bleeds that happen often * unusual bleeding from the gums * bleeding that is severe or you cannot control * red, pink or brown urine * bright red or black stools (looks like tar) * cough up blood or blood clots * vomit blood or your vomit looks like coffee grounds If you have a fall and hit your head, please come to the ER and get checked out. Being on a blood thinner increases your risk of brain bleeding with falls. Avoid high risk activities, such as: * standing on tall ladders * riding motorcycles * anything where you are high risk for falls or trauma Avoid taking NSAIDs (pain medication) while you are taking a blood thinner. This includes: * Ibuprofen, Aleve Advil, Naproxen. * If you are ever unsure you can ask your doctor or pharmacist. * Tylenol is SAFE to take. If you have any new or worsening chest pain or shortness of breath please return to the ER. Pending Studies at Discharge: Yes (Babesia PCR, parvovirus B19 Ab, CMV Ab, Q fever Ab, HIV RNA, Histo UrAg, Ri) Stand-Alone Forms: My [employer], Smoking Cessation Medications and DC Order Prescriptions: New Eliquis 5 mg tablet 5 mg PO BID Qty: 60 0RF atovaquone 750 mg/5 mL suspension 750 mg PO BID 3 Days Qty: 30 0RF Rx Instructions: must administer with food, preferably a high-fat meal valacyclovir 500 mg Tablet 1,000 mg PO BID 6 Days Qty: 24 0RF azithromycin 500 mg tablet 500 mg PO DAILY 3 Days Qty: 3 0RF Continued sertraline [Zoloft] 100 mg tablet 100 mg PO DAILY cyclobenzaprine 10 mg tablet 10 mg PO DAILY PRN (Reason: muscle spasm, pain) Qty: 90 0RF oxycodone 5 mg tablet 5 mg PO Q6H PRN (Reason: pain) Qty: 15 0RF albuterol sulfate 90 mcg/actuation HFA aerosol inhaler 2 puff INHALATION QID PRN (Reason: Wheezing) finasteride 5 mg tablet 5 mg PO DAILY Rx Instructions: take 1 tablet by mouth once daily Discontinued sulindac 200 mg tablet 0 mg PO BID Patient Comments: Last filled 07/2024 x90 day supply. Unable to verify if pt is still taking. Original Directions: 200mg by mouth twice daily - 01/27/25 Discharge Orders: Discharge Order (Routine); Ordered 02/01/25 Ordered By: Lola Qiu/Other Patient Handouts: AFib Dc Admission Data Admit Date/Time: 01/28/25 16:02 Attending Provider: Kourtney Man Admit Provider: Jenn Spivey Primary Care Provider: PCP,NO Other Providers: Jenn Spivey; Jackie Bolivar; Briseida Nix; Jayla Neville Antonie J.; Jenn Pratt; Ernestine Burgess; Jose Rivera; Tevin Mcguire Other Interventions: Discharge Summary Assessment (RN) Last Done: 02/01/25 09:12 Hospital Stay Data Consultations 01/27/25 12:58 ED Decision to Admit Stat 01/27/25 15:28 Consult Infectious Diseases Routine 01/28/25 13:04 Consult Rheumatology Routine 01/29/25 08:33 Consult Cardiology Routine Diagnostic Imagining Performed = Chest X-Ray 01/27/25 11:17 XR chest 1V portable CLINICAL HISTORY: Sepsis COMPARISON STUDY: 01/26/2025 FINDINGS: Heart size and pulmonary vasculature are normal. No consolidation or pleural effusion. No pneumothorax. IMPRESSION: No acute findings. ACT 112: Negative or not required by law. Electronically signed by: Gibson Donato M.D. 01/27/2025 11:[address] 01/27/25 11:39 CT head/brain wo con CLINICAL HISTORY: davidson. TECHNIQUE: Multiple axial CT images of the head were obtained without contrast. A dose lowering technique was utilized adhering to the principles of ALARA. CT DOSE: 625.8 mGy.cm COMPARISON: 11/18/2021 FINDINGS: Stable left globus pallidus calcification. No intracranial hemorrhage seen. No mass effect, midline shift, or hydrocephalus. Visualized paranasal sinuses and mastoid air cells are clear. No skull fracture seen. IMPRESSION: No acute findings. ACT 112: Negative or not required by law. The above report was generated using voice recognition software. It may contain grammatical, syntax or spelling errors. Electronically signed by: Gibson Donato M.D. 01/27/2025 12:31 PM Abdomen/Pelvis CT 01/28/25 13:[address] WITH IV CONTRAST CT DOSE: 1493.32 mGy.cm HISTORY: febrile illness, elevated LFTs TECHNIQUE: Multiaxial CT images of the abdomen and pelvis were performed following the IV administration of 94 cc of Optiray, A dose lowering technique was utilized adhering to the principles of ALARA. COMPARISON STUDY: None FINDINGS: The lung bases demonstrates changes consistent with UIP. There are no focal liver lesions identified. The portal vein is patent. There is no ascites. The gallbladder and bile ducts are unremarkable. There are no adrenal, pancreatic, or renal lesions are identified. There is no hydronephrosis. There is splenomegaly. There is a tiny calcification in the spleen is most likely a small granuloma. There is no aortic aneurysm or periaortic adenopathy. No bowel obstruction or free air. There is colonic diverticulosis with no e vidence of diverticulitis or colitis. In the pelvis, the appendix is normal. There is no fluid in the cul-de-sac. Unopacified urinary bladder is grossly negative although visualization is hampered by spray artifact from a left hip prosthesis. IMPRESSION: Nonspecific splenomegaly. Bibasilar lung changes consistent with UIP. ACT 112: Negative or not required by law. The above report was generated using voice recognition software. It may contain grammatical, syntax or spelling errors. Electronically signed by: Pippa Rodriguez M.D. 01/28/2025 2:43 PM Pending Results Patient Have Any Pending Studies at Discharge: Yes (Babesia PCR, parvovirus B19 Ab, CMV Ab, Q fever Ab, HIV RNA, Histo UrAg, Ri) Discharge Instructions Given to Patient (Per Discharging Provider) Mr. Campbell, Dwight were hospitalized after an unknown febrile illness. 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 Also thought that you have an secondary underlying viral infection, causing the mouth lesions and that has improved with empiric treatment. During the course of your stay - you flipped into an abnormal heart rhythm called afib. Thankfully with IV Cardizem you have returned to a normal rhythm and stayed in the normal rhythm. You were seen by Cardiology who recommended that you complete a 30 day heart monitor to see if you return to afib and if you will need to stay on Eliquis. Recommendations: Eliquis twice a day - next dose PM 02/01 Azithromycin 500mg PO daily - next dose 02/02 Valtrex 1000mg twice a day x 6 days Atovoquone - twice a day - next dose PM 02/01 Do not take sulindac while you are on Eliquis. If you are needing to be on Eliquis fpc, then you should follow up with Rheumatology for alternative options for your osteoarthritis. Please follow up with your PCP within one week. Thanks for allowing us to participate in your care! Here are some guidelines about taking Eliquis: Increased risk of blood clots if you stop taking Eliquis. Do not stop taking Eliquis without talking to your doctor.. Stopping Eliquis increases your risk of having a stroke. Increased risk of bleeding. Eliquis can cause bleeding which can be serious and may lead to . This is because Eliquis is a blood thinner medicine (anticoagulant) that lowers blood clotting. During treatment with Eliquis you are likely to bruise more easily, and it may take longer for bleeding to stop. * If you ever cannot get bleeding to stop please report to the ER * If you have a bruise that is large/painful or swollen you should also be seen by a medical provider Call your doctor or get medical help right away if you or your child develop any of these signs or symptoms of bleeding: unexpected bleeding or bleeding that lasts a long time, such as: * nose bleeds that happen often * unusual bleeding from the gums * bleeding that is severe or you cannot control * red, pink or brown urine * bright red or black stools (looks like tar) * cough up blood or blood clots * vomit blood or your vomit looks like coffee grounds If you have a fall and hit your head, please come to the ER and get checked out. Being on a blood thinner increases your risk of brain bleeding with falls. Avoid high risk activities, such as: * standing on tall ladders * riding motorcycles * anything where you are high risk for falls or trauma Avoid taking NSAIDs (pain medication) while you are taking a blood thinner. This includes: * Ibuprofen, Aleve Advil, Naproxen. * If you are ever unsure you can ask your doctor or pharmacist. * Tylenol is SAFE to take. If you have any new or worsening chest pain or shortness of breath please return to the ER. Supervising Physician Co-Signing Physician Notes LATESHA Supervision Note: I did not personally see or examine the patient today, but I verified all bell points of LATESHA Damon's assessment and plan with the following exceptions/additions: May have caffeine withdrawal headache-will see if he usually driks caffeine at home-liberalize caffeine or consider fioricet Total Time Total Time Spent Total Time Spent (In Minutes): Time spent day of discharge 40 minutes including direct patient care, medication reconciliation, documentation, review of labs and images, and coordination of care. Coding Level of Care Code 85961 INP/OBS DISCH >30 MIN Diagnoses Fever and chills R50.9 Arthralgia, unspecified joint M25.50 Joint pain location: unspecified Pancytopenia D61.818 At high risk for tick borne illness Z91.89
[2025-02-01 14:22] LABS: HIV 1 RNA PCR Copies/ML NOT DETECTED copies/mL (NOT DETECTED)
== END 2025-02-01 10:18 | disposition home or self-care (01) | DRG 868 ==
LOC: 3N 10:39 → ED 10:39 → SUATTDRO 13:59 → 3N 14:55 → 2S 01-29 09:06

== ENCOUNTER 2025-02-04 19:49 | Inpatient (IN) ==
--- NOTE | 2025-02-04 20:23 | Emergency Department Note ---
Impression & Plan Fever, Fatigue, Myalgia, Leukocytosis, Elevated procalcitonin ED Provider Note ED Provider Note NAME: VANESSA DAN Jr AGE:65 SEX: Male : 1960 ARRIVES VIA: private vehicle INFORMANT: Patient ED PROVIDER(s): Tess Aggarwal DO CHIEF COMPLAINT: fever, chills, body aches, fatigued, recent babesiosis HPI: This is a 65-year-old male who presents emergency department due to concern for recurrent fever, chills, body aches, and fatigue. Patient recently seen and evaluated here with similar symptoms only he states those were worse and during his evaluation he was found to be positive for babesiosis. He states he was changed to different medications just before discharge and was feeling improved. He states the rash had gone away, his leg swelling had improved, body aches improved, and he was no longer having fevers. He states he did feel well for a few days when he went home until today when he began to feel more tired, developed chills and the a fever to 101 F, then began developing body aches again. He states he has not had any vomiting or diarrhea, and is drinking water but states he still feels as though he is dehydrated. He states he does feel as though it is hard to breathe although denies any cough or URI symptoms. He denies chest pain or abdominal pain. PAST MEDICAL HISTORY:See Below PAST SURGICAL HISTORY:See Below FAMILY HISTORY:See Below SOCIAL HISTORY:See Below HOME MEDICATIONS:See Below ALLERGIES:See Below VITALS:See Below PHYSICAL EXAMINATION: GENERAL: alert, well appearing, well nourished, no distress, non-toxic EYE EXAM: normal conjunctiva, PERRL and EOM's grossly intact OROPHARYNX: no exudate, no erythema, lips, buccal mucosa, and tongue normal and mucous membranes are mildly dry NECK: supple, no nuchal rigidity, no adenopathy, non-tender LUNGS: Clear to auscultation. Normal chest wall mechanics, no w/r/r HEART: no murmurs, S1 normal and S2 normal ABDOMEN: abdomen soft, non-tender, normo-active bowel sounds, no masses, no rebound or guarding. SKIN: no rashes, petechiae, orbruising UPPER EXTREMITIES: upper extremities are grossly normal. FROM, nml pulses b/l. LOWER EXTREMITIES: No pitting edema. FROM, nml pulses b/l. NEURO EXAM: Normal sensorium, cranial nerves II-XII grossly intact, normal speech, no facial droop,nogross weakness of arms, no gross weakness of legs. Gross sensation intact. No ataxia. Vital Signs: reviewed and remarkable Differential Diagnosis: Viral syndrome, otitis, pharyngitis, pneumonia, influenza, meningitis, urinary tract infection, sepsis, bacteremia, as well as other pathologies. MEDICAL DECISION MAKING: This is a 65-year-old male presents emergency department due to concern for recurrent fevers, myalgias, and fatigue similar to a recent admission where he was diagnosed with babesiosis. Patient states he felt well at discharge and has been taking his medications as prescribed. He states her current symptoms began today. On arrival here patient was tachycardic and hypotensive and ill- appearing on my bedside exam. Labs drawn and sent, IV established, EKG and chest. Performed at bedside and interpreted by me and patient was monitored on telemetry. I did review his recent inpatient evaluation at discharge which included extensive labs and imaging. Patient started on IV fluids here and blood pressure did improve. He was given IV Tylenol for his myalgias. Patient's chest x-ray reassuring. Patient noted to have a leukocytosis and elevated procalcitonin. It is unclear if the etiology this is secondary to the waxing or waning effects of babesiosis, versus a new illness or iatrogenic infection. Cultures obtained and sent additionally and patient given an empiric dose of IV cefepime. Patient did require a second bolus of IV fluids in order to maintain his blood pressure and was then slowed to a maintenance rate into the third liter. Patient given a dose of IV Toradol additionally. Case discussed with hospitalist team for additional evaluation and management. Consultation(s): 2219: Discussed with Dr. Teran, [place] hospitalist team, for additional evaluation and mgmt. ER Treatment Provided: See below Diagnostics Interpreted By Me: -ECG: Sinus tachycardia at 109, normal axis, normal intervals, no acute ST/T wave changes -Cardiac Monitoring: An order was placed for continuous cardiac monitoring. The monitor shows a rate of 96 with normal sinus rhythm. -Laboratory studies: As stated above and show below. -Imaging studies: X-ray Chest: A single view study of the chest was reviewed and was negative for cardiomegaly, focal infiltrate, effusion, pulmonary edema, or wide mediastinum. Triage Nursing Note Reviewed Prior/Outside Records Reviewed Past Med/Surg History Problem List (Updated 02/04/25 @ 23:37 by Tess Aggarwal DO) Elevated procalcitonin (Acute) Leukocytosis (Acute) Myalgia (Acute) Fatigue (Acute) Fever (Acute) Anaplasmosis (Acute) Arthritis Lumbar facet joint syndrome Hand arthritis Spinal stenosis of lumbar region Cervical spinal stenosis Lumbar radiculopathy Myofascial pain Cervical facet joint syndrome Cervicalgia History of left hip replacement August 2021 Dyslipidemia Anxiety Menieres disease BPH without obstruction/lower urinary tract symptoms (Acute) Hearing loss Erectile dysfunction (Acute) Medical History (Updated 02/04/25 @ 23:37 by Tess Aggarwal DO) Atrial fibrillation with RVR Myalgia Arthralgia LFT elevation Rash Tinnitus Surgical History (Updated 02/02/25 @ 00:07 by [place] Case) History of prostate surgery S/P nasal surgery Family History Mother Diabetes Lung disease Father Depression Social History Smoking Status: Former smoker Tobacco Type: Cigarettes Do You Dip or Chew Tobacco: No; Hx Alcohol Use: No Hx Substance Use: No Preferred Language: Korean Communication Ability: Effective Speech Pathology Assistant Required: No Beliefs That Will Affect Care: None marital status: Current Living Situation: Alone current occupational status: employed Feels Safe at Home: Yes Assistive Devices: None Allergies Allergies Allergy/AdvReac Type Severity Reaction Status Date / Time No Known Allergies Allergy Verified 02/04/25 20:27 Home Meds Home Medications Medication Instructions Recorded Confirmed sertraline 100 mg tablet (Zoloft) 100 mg PO DAILY 07/24/23 02/04/25 albuterol sulfate 90 mcg/actuation 2 puff inhalation QID PRN Wheezing 01/27/25 02/04/25 aerosol inhaler finasteride 5 mg tablet 5 mg PO DAILY 01/27/25 02/04/25 Previous Rx's Medication Instructions Recorded cyclobenzaprine 10 mg tablet 10 mg PO DAILY PRN muscle spasm, 10/20/24 pain #90 tabs oxycodone 5 mg tablet 5 mg PO Q6H PRN pain #15 tabs 07/14/25 apixaban 5 mg tablet (Eliquis) 5 mg PO BID #60 tabs 01/31/25 valacyclovir 500 mg tablet 1,000 mg (2 x 500 mg) PO BID 6 02/01/25 days #24 tabs Results & Data (ED) Vital Signs Vital Signs - 24 hr 02/04/25 19:50 02/04/25 20:00 02/04/25 20:21 Temperature 36.5 C 36.7 C Temperature Source Temporal Artery Scan Oral Pulse Rate 116 H Pulse Rate [Apical] 105 H Respiratory Rate 18 Respiratory Effort / Characteristics Non-Labored Spontaneous Respiratory Depth Normal Respiratory Pattern Regular Blood Pressure 90/60 L Blood Pressure [Right Arm] 99/61 L Blood Pressure Mean 70 Blood Pressure Mean [Right Arm] 73 Blood Pressure Position Sitting Pulse Oximetry 94 96 Oxygen Delivery Method Room Air Room Air Oxygen Flow Rate 0 Sepsis Recent Fever Within 48 Hours No Sepsis New/Unexplained Change in Mental Status N/A Sepsis Action Taken by Nursing Physician Notified 02/04/25 20:26 02/04/25 20:33 02/04/25 21:00 Temperature Temperature Source Pulse Rate 99 H 95 H 93 H Pulse Rate [Apical] Respiratory Rate 23 28 H Respiratory Effort / Characteristics Respiratory Depth Respiratory Pattern Blood Pressure 105/60 86/60 L Blood Pressure [Right Arm] Blood Pressure Mean 75 64 Blood Pressure Mean [Right Arm] Blood Pressure Position Pulse Oximetry 95 Oxygen Delivery Method Oxygen Flow Rate Sepsis Recent Fever Within 48 Hours Sepsis New/Unexplained Change in Mental Status Sepsis Action Taken by Nursing 02/04/25 21:50 02/04/25 22:00 02/04/25 22:49 Temperature Temperature Source Pulse Rate 89 90 86 Pulse Rate [Apical] Respiratory Rate 20 24 Respiratory Effort / Characteristics Respiratory Depth Respiratory Pattern Blood Pressure 101/62 103/65 Blood Pressure [Right Arm] Blood Pressure Mean 73 77 Blood Pressure Mean [Right Arm] Blood Pressure Position Pulse Oximetry 96 Oxygen Delivery Method Oxygen Flow Rate Sepsis Recent Fever Within 48 Hours Sepsis New/Unexplained Change in Mental Status Sepsis Action Taken by Nursing 02/04/25 23:28 Temperature Temperature Source Pulse Rate Pulse Rate [Apical] Respiratory Rate Respiratory Effort / Characteristics Respiratory Depth Respiratory Pattern Blood Pressure Blood Pressure [Right Arm] Blood Pressure Mean Blood Pressure Mean [Right Arm] Blood Pressure Position Pulse Oximetry Oxygen Delivery Method Room Air Oxygen Flow Rate Sepsis Recent Fever Within 48 Hours Sepsis New/Unexplained Change in Mental Status Sepsis Action Taken by Nursing Laboratory Data 02/04/25 20:11 02/04/25 20:11 Lab Results 02/04/25 02/04/25 Range/Units 20:11 21:53 WBC 16.75 H (4.8-10.8) K/ul RBC 4.22 L (4.70-6.10) M/uL Hgb 12.6 L (14.0-18.0) g/dl Hct 37.2 L (42.0-52.0) % MCV 88.2 (80.0-100.0) fL MCH 29.9 (25.0-34.0) pg MCHC 33.9 (32.0-36.0) g/dL RDW Std Deviation 44.7 (36.4-46.3) fL RDW Coeff of Robb 13.9 (11.5-14.5) % Plt Count 380 (130-400) K/uL MPV 9.0 L (9.4-12.4) fL Immature Gran % (Auto) 3.8 % Neut % (Auto) 92.3 % Lymph % (Auto) 1.5 % [place] % (Auto) 2.1 % Eos % (Auto) 0.1 % Baso % (Auto) 0.2 % Neut # (Auto) 15.47 H (1.40-6.50) K/uL Lymph # (Auto) 0.25 L (1.20-3.40) K/uL [place] # (Auto) 0.36 (0.11-0.59) K/uL Eos # (Auto) 0.01 (0.00-0.50) K/uL Baso # (Auto) 0.03 (0.00-0.20) K/uL Immature Gran # (Auto) 0.63 H (0.01-0.20) K/uL Polychromasia 1+ PT 11.9 (9.0-12.0) Seconds INR 1.1 (0.9-1.1) Sodium 130 L (136-145) mmol/L Potassium 4.8 (3.5-5.1) mmol/L Chloride 98 (98-107) mmol/L Carbon Dioxide 21 (21-32) mmol/L Anion Gap 11 (3-11) BUN 16 (6-23) mg/dl Creatinine 1.10 (0.6-1.4) mg/dl Est Cr Clr Drug Dosing 91.5 ml/min eGFR 74.50 BUN/Creatinine Ratio 14.5 (10-20) Glucose 117 H (70-99(Fasting)) mg/dl Calcium 8.9 (8.6-10.3) mg/dl Magnesium 1.9 (1.7-2.4) mg/dl Total Bilirubin 1.0 (0.2-1.0) mg/dl AST 27 (13-39) U/L ALT 34 (7-52) U/L Alkaline Phosphatase 141 H (34-104) U/L Troponin I High Sens 14.4 (0-20) pg/ml B-Natriuretic Peptide 131 H (0-100) pg/ml Total Protein 7.1 (6.0-8.3) gm/dl Albumin 3.3 L (3.4-5.0) gm/dl Globulin 3.8 (2.5-4.0) gm/dl Albumin/Globulin Ratio 0.9 (0.9-2) Lipase 33 (11-82) U/L Procalcitonin 2.78 H (0-0.5) ng/ml TSH 2.551 (0.300-4.500) uIu/ml Adenovirus (PCR) Not Detected (NotDetected) B. pertussis DNA (PCR) Not Detected (NotDetected) B.parapertussis DNA PCR Not Detected (NotDetected) C. pneumoniae DNA (PCR) Not Detected (NotDetected) Coronavirus OC43 (PCR) Not Detected (NotDetected) Coronavirus HKU1 (PCR) Not Detected (NotDetected) Coronavirus 229E (PCR) Not Detected (NotDetected) SARS-CoV-2 (PCR) Not Detected (NotDetected) Coronavirus NL63 (PCR) Not Detected (NotDetected) Human Metapneumovir PCR Not Detected (NotDetected) Influenza Type A (PCR) Not Detected (NotDetected) Influenza Type B (PCR) Not Detected (NotDetected) M. pneumoniae (PCR) Not Detected (NotDetected) Parainfluenza 1 (PCR) Not Detected (NotDetected) Parainfluenza 2 (PCR) Not Detected (NotDetected) Parainfluenza 3 (PCR) Not Detected (NotDetected) Parainfluenza 4 (PCR) Not Detected (NotDetected) RSV (PCR) Not Detected (NotDetected) Entero/Rhino (PCR) Not Detected (NotDetected) Administered Medications Sodium Chloride (Nss) 1,000 mls @ 125 mls/hr IV .Q8H ELIEZER Stop: 02/07/25 20:59 Last Infusion: 02/04/25 22:00 Dose: Infused Documented By: Admin: 02/04/25 21:12 Dose: 125 mls/hr Documented By: ANT Discontinued Medications Sodium Chloride (Nss) 1,000 mls @ 999 mls/hr IV .Q1H1M ONE Stop: 02/04/25 21:16 Last Infusion: 02/04/25 21:11 Dose: Infused Documented By: Admin: 02/04/25 20:26 Dose: 999 mls/hr Documented By: ANT Acetaminophen (Ofirmev) 1,000 mg in 100 mls @ 400 mls/hr IV NOW STA Stop: 02/04/25 20:30 Last Infusion: 02/04/25 20:40 Dose: Infused Documented By: Admin: 02/04/25 20:26 Dose: 400 mls/hr Documented By: ANT Cefepime HCl (Maxipime 2000mg) 2,000 mg in 20 mls @ 5 mls/min IV NOW STA; Protocol Stop: 02/04/25 21:50 Last Admin: 02/04/25 22:03 Dose: 5 mls/min Documented By: ANT Sodium Chloride (Nss) 1,000 mls @ 999 mls/hr IV .Q1H1M ONE Stop: 02/04/25 22:59 Last Infusion: 02/04/25 22:55 Dose: Infused Documented By: Admin: 02/04/25 22:01 Dose: 999 mls/hr Documented By: ANT Famotidine (Pepcid 20mg Iv Push) 20 mg in 5 mls @ 2.5 mls/min IV NOW STA Stop: 02/04/25 22:20 Last Admin: 02/04/25 22:24 Dose: 2.5 mls/min Documented By: ANT Ketorolac Tromethamine (Ketorolac Tromethamine 15 Mg/Ml Vial) 10 mg IV NOW ONE Stop: 02/04/25 21:59 Last Admin: 02/04/25 22:03 Dose: 10 mg Documented By: ANT Ondansetron HCl (Ondansetron Inj 2 Mg/Ml 2 Ml Vial) 4 mg IV NOW STA Stop: 02/04/25 22:20 Last Admin: 02/04/25 22:24 Dose: 4 mg Documented By: ANT Imaging Data Radiologist's Impression: Chest X-Ray 02/04/25 20:17 Exam(s): XR CXR 1 VIEW EXAM: XR Chest, 1 View CLINICAL HISTORY: Reason for exam: sob. TECHNIQUE: Frontal view of the chest. COMPARISON: 01/27/2025 FINDINGS: Lungs: Small amount of soft tissue artifact from large body habitus. No definite acute focal infiltrate or consolidation is seen. Pleural space: Unremarkable. No pneumothorax. Heart: Unremarkable. No cardiomegaly. Mediastinum: Unremarkable. Normal mediastinal contour. Bones/joints: Mild osteophytosis throughout the mid to lower thoracic spine. No acute fracture. IMPRESSION: Small amount of soft tissue artifact from large body habitus. No definite acute focal infiltrate or consolidation is seen. Electronically signed by: Indra Teran MD 02/04/25 22:48 PM Discharge Plan Visit Data Chief Complaint: Hypotension Stated Complaint: LYME TICK DISEASE ED Provider: Tess Aggarwal Discharge Problem: Fever, Fatigue, Myalgia, Leukocytosis, Elevated procalcitonin Patient Disposition: Admitted As Inpatient Condition: Fair Discharge Instructions Interventions: ED Discharge Assessment Last Done: 02/04/25 23:28 Forms Stand Alone Forms: [facility] [employer] Prescriptions Prescriptions: No Action sertraline [Zoloft] 100 mg tablet 100 mg PO DAILY cyclobenzaprine 10 mg tablet 10 mg PO DAILY PRN (Reason: muscle spasm, pain) Qty: 90 0RF oxycodone 5 mg tablet 5 mg PO Q6H PRN (Reason: pain) Qty: 15 0RF albuterol sulfate 90 mcg/actuation HFA aerosol inhaler 2 puff INHALATION QID PRN (Reason: Wheezing) finasteride 5 mg tablet 5 mg PO DAILY Eliquis 5 mg tablet 5 mg PO BID Qty: 60 0RF valacyclovir 500 mg Tablet 1,000 mg PO BID 6 Days Qty: 24 0RF Referrals Referrals: PCP,NO [Primary Care Provider] -
[2025-02-04] MEDS: ACETAMINOPHEN 1,000 MG/100 ML VIAL IV STA (20:26)
[2025-02-04] MEDS: SODIUM CHLORIDE 0.9% 1,000 ML IV ONE ×2 (20:26→22:01)
[2025-02-04 20:32] LABS: Hematocrit (blood only) 37.2 % (42.0-52.0); Hemoglobin 12.6 g/dl (14.0-18.0); Mean Corpuscular Hemoglobin 29.9 pg (25.0-34.0); Mean Corpuscular Volume 88.2 fL (80.0-100.0); Platelet Count 380 K/uL (130-400); RDW Standard Deviation 44.7 fL (36.4-46.3); Red Blood Count 4.22 M/uL (4.70-6.10); White Blood Count 16.75 K/ul (4.8-10.8)
[2025-02-04 20:56] LABS: Alanine Aminotransferase 34.0 U/L (7-52); Albumin Globulin Ratio 0.9 (0.9-2); Alkaline Phosphatase 141.0 U/L (34-104); Anion Gap 11.0 (3-11); Bilirubin,Total 1.0 mg/dl (0.2-1.0); Blood Urea Nitrogen 16.0 mg/dl (6-23); Calcium 8.9 mg/dl (8.6-10.3); Carbon Dioxide 21.0 mmol/L (21-32); Chloride 98.0 mmol/L (98-107); Creatinine Clr Calc Pharmacy 91.5 ml/min; Globulin 3.8 gm/dl (2.5-4.0); Glucose 117.0 mg/dl (70-99(Fasting)); Lipase 33.0 U/L (11-82); Magnesium 1.9 mg/dl (1.7-2.4); Potassium 4.8 mmol/L (3.5-5.1); Sodium 130.0 mmol/L (136-145); Total Protein 7.1 gm/dl (6.0-8.3)
[2025-02-04 20:59] LABS: INR 1.1 (0.9-1.1); Prothrombin Time 11.9 Seconds (9.0-12.0)
[2025-02-04 21:12] LABS: Thyroid Stimulating Hormone 2.551 uIu/ml (0.300-4.500)
[2025-02-04] MEDS: SODIUM CHLORIDE 0.9% 1,000 ML IV SCH (21:12)
[2025-02-04] MEDS: KETOROLAC TROMETHAMINE 15 MG/ML VIAL IV ONE (22:03)
[2025-02-04] MEDS: CEFEPIME 2000MG 2,000 MG/20 ML SYR IV STA (22:03)
[2025-02-04 22:14] LABS: Immature Granulocytes # (auto) 0.63 K/uL (0.01-0.20); Immature Granulocytes % (auto) 3.8 %; Polychromasia 1+
[2025-02-04] MEDS: ONDANSETRON INJ 2 MG/ML 2 ML VIAL IV STA (22:24)
[2025-02-04] MEDS: FAMOTIDINE 20MG IV PUSH 20 MG/5 ML SYR IV STA (22:24)
--- NOTE | 2025-02-04 22:49 | XRay Report ---
Exam(s): XR CXR 1 VIEW EXAM: XR Chest, 1 View CLINICAL HISTORY: Reason for exam: sob. TECHNIQUE: Frontal view of the chest. COMPARISON: 01/27/2025 FINDINGS: Lungs: Small amount of soft tissue artifact from large body habitus. No definite acute focal infiltrate or consolidation is seen. Pleural space: Unremarkable. No pneumothorax. Heart: Unremarkable. No cardiomegaly. Mediastinum: Unremarkable. Normal mediastinal contour. Bones/joints: Mild osteophytosis throughout the mid to lower thoracic spine. No acute fracture. IMPRESSION: Small amount of soft tissue artifact from large body habitus. No definite acute focal infiltrate or consolidation is seen. Electronically signed by: Indra Teran MD 02/04/25 22:48 PM
[2025-02-04 22:50] LABS: Chlamydia pneumoniae PCR Not Detected (NotDetected); Coronavirus 229E PCR Not Detected (NotDetected); Coronavirus CoV-2 (COVID19)PCR Not Detected (NotDetected); Coronavirus HKU1 PCR Not Detected (NotDetected); Coronavirus NL63 PCR Not Detected (NotDetected); Coronavirus OC43PCR Not Detected (NotDetected); Human Metapneumovirus PCR Not Detected (NotDetected); Parainfluenza Virus 1 PCR Not Detected (NotDetected); Parainfluenza Virus 2 PCR Not Detected (NotDetected); Parainfluenza Virus 3 PCR Not Detected (NotDetected); Parainfluenza Virus 4 PCR Not Detected (NotDetected); Respiratory Syncytial VirusPCR Not Detected (NotDetected); Rhinovirus/Enterovirus PCR Not Detected (NotDetected)
--- NOTE | 2025-02-04 23:00 | History & Physical Report ---
Date of Service February 04, 2025 Assessment & Plan (1) Sepsis: (2) Fever: (3) Dyslipidemia: (4) Anxiety: (5) Atrial fibrillation: Plan 65yo male presenting with recurrence of fever, chills, myalgias, arthralgias. No obvious source identified. #Sepsis - present on admission. Reported fever, leukocytosis as well as borderline blood pressure. Elevated neutrophils with bands, elevated procalcitonin. Respiratory biofire panel negative. UA chakraborty not appear to be infected. CXR with no obvious infiltrate. Blood cultures sent from the ER. Upon review of prior labs - no inclusion bodies noted to suggest Babesiosis. Babesiosis titres WNL. After admission patient developed severe neck pain and stiffness Patient did not have an LP during his last hospitalization He is on Eliquis for his AF Consider possible multi-system inflammatory condition to be considered -Admit to PCU -Follow cultures -Check ESR and CRP -Check anti-streptolysin O -Await pending studies from prior admission as listed below -Patient should have an LP performed for complete workup as well as his complaint of GORDON nd neck stiffness. He is on Eliquis -Will give Dexamethasone 10mg IV now -Ceftriaxone 2gm IV BID -Vancomycin -Acyclovir 1000mg IV q 8 hours -Consult IR in the AM to assist with Lumbar Puncture after Eliquis washout -Tylenol PRN -Morphine PRN -Toradol PRN #Anxiety/Depression -Continue Sertraline 100mg po daily #BPH -Continue Finasteride From last hospitalization : Rheumatologic workup pending including Rheumatoid factor, CCP, JC, Anti- proteinase 3, Anti-myeloperoxidase, ANCA Pending West Nile Virus source, IgM Ab and RNA Pending Q Fever antibodies Pending Rickettsia IgG and IgM Ab Pending Typhus Fever IgM History of Present Illness Chief Complaint: fever, fatigue, myalgias Primary Care Provider: NO PCP Jarvis Dc is a pleasant 65yo male with history of atrial fibrillation and BPH presenting with fever/chills/myalgias. Patient was recently admitted to [facility] from 01/28 - 02/01/2025 after presenting with fever, chills, arthralgias, headache, rash and pancytopenia. 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 Patient was discharged home to complete a course of Az ithromycin and Atovaquone. He had some swelling of his feet and legs when he returned home which has since resolved. His ulcers in his mouth and lips that were present are now mostly resolved. He reports feeling well from the date of returning home 02/01 until this morning when he had recurrence of fever to 101, fatigue, myalgias and rigors. He took his last dose of antibiotics today. Patient lives alone with his dog who is healthy. 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 He has had tick bites as well as mosquito bites No sick contacts, no recent travel, no recent vaccinations, no recent illness prior to his admission on 01/28. Patient follows with Rheumatology for OA - no history of RA or other rheumatologic disorders He iss complaining of headache, neck pain and stiffness, vomiting, dry cough as well as muscle pain, arthralgias of the elbows, shoulders and pain in the back No additional complaints at this time Blood pressure low upon arrival to the ER at 86/60, improved with IVF Allergies Allergy/AdvReac Type Severity Reaction Status Date / Time No Known Allergies Allergy Verified 02/04/25 20:27 Home Medications Medication Instructions Recorded Confirmed Type sertraline 100 mg tablet (Zoloft) 100 mg PO DAILY 07/24/23 02/04/25 History cyclobenzaprine 10 mg tablet 10 mg PO DAILY PRN muscle spasm, 10/20/24 02/04/25 Rx pain #90 tabs oxycodone 5 mg tablet 5 mg PO Q6H PRN pain #15 tabs 01/26/25 02/04/25 Rx albuterol sulfate 90 mcg/actuation 2 puff inhalation QID PRN Wheezing 01/27/25 02/04/25 History aerosol inhaler finasteride 5 mg tablet 5 mg PO DAILY 01/27/25 02/04/25 History apixaban 5 mg tablet (Eliquis) 5 mg PO BID #60 tabs 01/31/25 02/04/25 Rx valacyclovir 500 mg tablet 1,000 mg (2 x 500 mg) PO BID 6 02/01/25 02/04/25 Rx days #24 tabs Past Med/Surg History Problem List (Updated 02/05/25 @ 04:02 by Sofi Teran DO) Sepsis Atrial fibrillation Elevated procalcitonin (Acute) Leukocytosis (Acute) Myalgia (Acute) Fatigue (Acute) Fever (Acute) Anaplasmosis (Acute) Arthritis Lumbar facet joint syndrome Hand arthritis Spinal stenosis of lumbar region Cervical spinal stenosis Lumbar radiculopathy Myofascial pain Cervical facet joint syndrome Cervicalgia History of left hip replacement August 2021 Dyslipidemia Anxiety Menieres disease BPH without obstruction/lower urinary tract symptoms (Acute) Hearing loss Erectile dysfunction (Acute) Medical History Atrial fibrillation with RVR Myalgia Arthralgia LFT elevation Rash Tinnitus Surgical History History of prostate surgery S/P nasal surgery Family History Mother Diabetes Lung disease Father Depression Social History Smoking Status: Former smoker Tobacco Type: Cigarettes Smoking End Date: 1995; Do You Dip or Chew Tobacco: No; Hx Alcohol Use: No Hx Substance Use: No Preferred Language: Salvadorean Communication Ability: Effective Airways Control Specialist Required: No Beliefs That Will Affect Care: None marital status: Current Living Situation: Alone current occupational status: employed Other Information That Helps Us Care for You: No Feels Safe at Home: Yes Safety Concerns: Feels Safe At This Time Assistive Devices: Glasses and Hearing Aid - Left Review of Systems Review of Systems: All systems reviewed & are unremarkable except as noted in HPI & below Physical Exam Physical Exam: General: patient ill in appearance, AA&O, answering questions appropriately Skin: no rash HEENT: NC/AT, PERRL, EOMI, anicteric sclera, conjunctiva without injection, external ear normal to inspection and nontender, nares patent, moist mucus membranes, dentition intact, no oropharyngeal lesions, neck supple, trachea midline, no LAD, no thyromegaly, no JVD Heart: +S1/S2, regular, no m/r/g Lungs: equal air entry bilaterally, crackles present in bilateral lung bases, no rhonchi or wheezes Abd: +BS, soft, NT/ND, no masses/organomegaly/ascites Ext: warm, 2+ pulses in UE/LE bilaterally, no clubbing/cyanosis or edema Neuro: nonfocal, patient AA&O x 4, speech intact, no facial droop, moving all extremities on command with equal strength 5/5 Results & Data Results & Data Vital Signs (Past 12 Hours) Vital Signs Temp Pulse Pulse Resp BP BP Pulse Ox 02/04/25 22:49 86 103/65 02/04/25 22:00 90 24 101/62 96 02/04/25 21:50 89 20 02/04/25 21:00 93 H 28 H 86/60 L 02/04/25 20:33 95 H 23 105/60 95 02/04/25 20:26 99 H 02/04/25 20:21 96 02/04/25 20:00 36.7 C 105 H 99/61 L 02/04/25 19:50 36.5 C 116 H 18 90/60 L 94 O2 Del Method O2 Flow Rate 02/04/25 22:49 02/04/25 22:00 02/04/25 21:50 02/04/25 21:00 02/04/25 20:33 02/04/25 20:26 02/04/25 20:21 Room Air 0 02/04/25 20:00 02/04/25 19:50 Room Air Laboratory Results Laboratory Results WBC 16.75 K/ul (4.8-10.8) H 02/04/25 20:11 RBC 4.22 M/uL (4.70-6.10) L 02/04/25 20:11 Hgb 12.6 g/dl (14.0-18.0) L 02/04/25 20:11 Hct 37.2 % (42.0-52.0) L 02/04/25 20:11 MCV 88.2 fL (80.0-100.0) 02/04/25 20:11 MCH 29.9 pg (25.0-34.0) 02/04/25 20:11 MCHC 33.9 g/dL (32.0-36.0) 02/04/25 20:11 RDW Std Deviation 44.7 fL (36.4-46.3) 02/04/25 20:11 RDW Coeff of Robb 13.9 % (11.5-14.5) 02/04/25 20:11 Plt Count 380 K/uL (130-400) 02/04/25 20:11 MPV 9.0 fL (9.4-12.4) L 02/04/25 20:11 Immature Gran % (Auto) 3.8 % 02/04/25 20:11 Neut % (Auto) 92.3 % 02/04/25 20:11 Lymph % (Auto) 1.5 % 02/04/25 20:11 [place] % (Auto) 2.1 % 02/04/25 20:11 Eos % (Auto) 0.1 % 02/04/25 20:11 Baso % (Auto) 0.2 % 02/04/25 20:11 Neut # (Auto) 15.47 K/uL (1.40-6.50) H 02/04/25 20:11 Lymph # (Auto) 0.25 K/uL (1.20-3.40) L 02/04/25 20:11 [place] # (Auto) 0.36 K/uL (0.11-0.59) 02/04/25 20:11 Eos # (Auto) 0.01 K/uL (0.00-0.50) 02/04/25 20:11 Baso # (Auto) 0.03 K/uL (0.00-0.20) 02/04/25 20:11 Immature Gran # (Auto) 0.63 K/uL (0.01-0.20) H 02/04/25 20:11 Polychromasia 1+ 02/04/25 20:11 ESR 84 mm/hr (0-20) H 02/04/25 20:11 PT 11.9 Seconds (9.0-12.0) 02/04/25 20:11 INR 1.1 (0.9-1.1) 02/04/25 20:11 Sodium 130 mmol/L (136-145) L 02/04/25 20:11 Potassium 4.8 mmol/L (3.5-5.1) 02/04/25 20:11 Chloride 98 mmol/L (98-107) 02/04/25 20:11 Carbon Dioxide 21 mmol/L (21-32) 02/04/25 20:11 Anion Gap 11 (3-11) 02/04/25 20:11 BUN 16 mg/dl (6-23) 02/04/25 20:11 Creatinine 1.10 mg/dl (0.6-1.4) 02/04/25 20:11 Est Cr Clr Drug Dosing 91.5 ml/min 02/04/25 20:11 eGFR 74.50 02/04/25 20:11 BUN/Creatinine Ratio 14.5 (10-20) 02/04/25 20:11 Glucose 117 mg/dl (70-99(Fasting)) H 02/04/25 20:11 Calcium 8.9 mg/dl (8.6-10.3) 02/04/25 20:11 Magnesium 1.9 mg/dl (1.7-2.4) 02/04/25 20:11 Ferritin 837.5 ng/ml (8-388) H 02/04/25 20:11 Total Bilirubin 1.0 mg/dl (0.2-1.0) 02/04/25 20:11 AST 27 U/L (13-39) 02/04/25 20:11 ALT 34 U/L (7-52) 02/04/25 20:11 Alkaline Phosphatase 141 U/L (34-104) H 02/04/25 20:11 Troponin I High Sens 14.4 pg/ml (0-20) 02/04/25 20:11 C-Reactive Protein 6.00 mg/dl (0-0.5) H 02/04/25 20:11 B-Natriuretic Peptide 131 pg/ml (0-100) H 02/04/25 20:11 Total Protein 7.1 gm/dl (6.0-8.3) 02/04/25 20:11 Albumin 3.3 gm/dl (3.4-5.0) L 02/04/25 20:11 Globulin 3.8 gm/dl (2.5-4.0) 02/04/25 20:11 Albumin/Globulin Ratio 0.9 (0.9-2) 02/04/25 20:11 Lipase 33 U/L (11-82) 02/04/25 20:11 Procalcitonin 2.78 ng/ml (0-0.5) H 02/04/25 20:11 TSH 2.551 uIu/ml (0.300-4.500) 02/04/25 20:11 Urine Color Yellow 02/04/25 23:42 Urine Appearance Clear (Clear) 02/04/25 23:42 Urine pH 6.0 (4.5-7.5) 02/04/25 23:42 Ur Specific [place] 1.015 (1.000-1.030) 02/04/25 23:42 Urine Protein Negative (Negative) 02/04/25 23:42 Urine Glucose (UA) Negative (Negative) 02/04/25 23:42 Urine Ketones Negative (Negative) 02/04/25 23:42 Urine Blood Negative (Negative) 02/04/25 23:42 Urine Nitrite Negative (Negative) 02/04/25 23:42 Urine Bilirubin Negative (Negative) 02/04/25 23:42 Urine Urobilinogen Negative (Negative) 02/04/25 23:42 Ur Leukocyte Esterase Negative (Negative) 02/04/25 23:42 Urine Comment 02/04/25 23:42 Adenovirus (PCR) Not Detected (NotDetected) 02/04/25 21:53 B. pertussis DNA (PCR) Not Detected (NotDetected) 02/04/25 21:53 B.parapertussis DNA PCR Not Detected (NotDetected) 02/04/25 21:53 C. pneumoniae DNA (PCR) Not Detected (NotDetected) 02/04/25 21:53 Coronavirus OC43 (PCR) Not Detected (NotDetected) 02/04/25 21:53 Coronavirus HKU1 (PCR) Not Detected (NotDetected) 02/04/25 21:53 Coronavirus 229E (PCR) Not Detected (NotDetected) 02/04/25 21:53 SARS-CoV-2 (PCR) Not Detected (NotDetected) 02/04/25 21:53 Coronavirus NL63 (PCR) Not Detected (NotDetected) 02/04/25 21:53 Human Metapneumovir PCR Not Detected (NotDetected) 02/04/25 21:53 Influenza Type A (PCR) Not Detected (NotDetected) 02/04/25 21:53 Influenza Type B (PCR) Not Detected (NotDetected) 02/04/25 21:53 M. pneumoniae (PCR) Not Detected (NotDetected) 02/04/25 21:53 Parainfluenza 1 (PCR) Not Detected (NotDetected) 02/04/25 21:53 Parainfluenza 2 (PCR) Not Detected (NotDetected) 02/04/25 21:53 Parainfluenza 3 (PCR) Not Detected (NotDetected) 02/04/25 21:53 Parainfluenza 4 (PCR) Not Detected (NotDetected) 02/04/25 21:53 RSV (PCR) Not Detected (NotDetected) 02/04/25 21:53 Entero/Rhino (PCR) Not Detected (NotDetected) 02/04/25 21:53 Impressions Chest X-Ray 02/04/25 20:17 Exam(s): XR CXR 1 VIEW EXAM: XR Chest, 1 View CLINICAL HISTORY: Reason for exam: sob. TECHNIQUE: Frontal view of the chest. COMPARISON: 01/27/2025 FINDINGS: Lungs: Small amount of soft tissue artifact from large body habitus. No definite acute focal infiltrate or consolidation is seen. Pleural space: Unremarkable. No pneumothorax. Heart: Unremarkable. No cardiomegaly. Mediastinum: Unremarkable. Normal mediastinal contour. Bones/joints: Mild osteophytosis throughout the mid to lower thoracic spine. No acute fracture. IMPRESSION: Small amount of soft tissue artifact from large body habitus. No definite acute focal infiltrate or consolidation is seen. Electronically signed by: Indra Teran MD 02/04/25 22:[address] 02/04/25 22:59 EXAM: CT chest diagnostic wo con CLINICAL HISTORY: fever, crackles in bilateral bases TECHNIQUE: Contiguous axial CT images of the chest were acquired without administration of intravenous contrast. Coronal and sagittal reconstructions were obtained. One of the following dose reduction techniques were utilized for this exam: Automated exposure control, adjustment of the mA and/or kV according to patient size, use of iterative reconstruction. COMPARISON: Chest xray 01/27/2025 was reviewed. FINDINGS: Lungs: Bilateral reticular and ground-glass opacities in both lungs, predominantly subpleural, with honeycoming in both lower lobes. Mild centrilobular and paraseptal emphysema in both upper lobes. No pulmonary nodules or masses are identified. Small calcified nodule in the right posterior lung base. No pleural effusion or pleural thickening. Mediastinum: Multiple prominent and enlarged mediastinal lymph nodes mesuring up to 1.9 cm in short axis in the right lower paratracheal region. Few small bilateral supraclavicular lymph nodes are also seen. No mediastinal mass. The heart size is within normal limits. Small hiatal hernia. Hilar Structures: The hilar structures appear normal without enlargement or abnormality. No atheromatous calcifications of the aorta or coronary arteries. Trachea and Main Bronchi: The trachea and main bronchi are patent without evidence of obstruction or abnormality. Chest Wall: The chest wall is unremarkable with no evidence of soft tissue or bony abnormalities. Upper Abdomen: Visualized portions of the liver, spleen, adrenal glands, and kidneys are unremarkable. Bones: No evidence of fracture or lytic/sclerotic lesions. Thoracic spondylosis with schmorls nodes. IMPRESSION: No acute pulmonary abnormality. Bilateral reticular and ground-glass opacities in both lungs, predominantly subpleural, with honeycoming in both lower lobes, suggest chronic interstitial lung disease . Mild centrilobular and paraseptal emphysema in both upper lobes. Mediastinal lymphadenopathy, could be reactive. Advised follow-up. Electronically signed by Arik Kelley 02-05-2025 01:10 AM PG Care Time/CCT Total # of Minutes Spent Total Time Spent with Patient: Total time spent is greater than 50% in coordination of care (as documented) at patient's floor/unit and/or counseling patient: Coding Level of Care Code 41821 INT INP/OBS CARE 3/75MIN Diagnoses Sepsis A41.9 Fever R50.9 Dyslipidemia E78.5 Anxiety F41.9 Atrial fibrillation I48.91
[2025-02-04] MEDS: MoRPHine SULFATE 4 MG/ML 1 ML CARP\\VIAL IV STA (23:45)
[2025-02-04 23:58] LABS: Appearance Urine Clear (Clear); Glucose Urine UA Negative (Negative)
[2025-02-05] MEDS ORDERED: MoRPHine SULFATE 2 MG/ML CARP IV PRN (00:11)
[2025-02-05] MEDS ORDERED: ALBUTEROL HFA 8 GM INHALER INH PRN (00:11)
[2025-02-05] MEDS ORDERED: MoRPHine SULFATE 4 MG/ML 1 ML CARP\\VIAL IV PRN (00:11)
[2025-02-05] MEDS ORDERED: ONDANSETRON INJ 2 MG/ML 2 ML VIAL IV PRN (00:11)
[2025-02-05] MEDS ORDERED: ACETAMINOPHEN 325 MG TAB PO PRN (00:11)
[2025-02-05] MEDS: LACTATED RINGER'S 1,000 ML IV SCH (00:35)
[2025-02-05] MEDS: AZITHROMYCIN 500 MG/255 ML BAG IV SCH (00:38)
[2025-02-05] MEDS: ATOVAQUONE 750 MG/5 ML UDC PO SCH (00:41)
[2025-02-05 01:00] LABS: Ferritin 837.5 ng/ml (8-388)
--- NOTE | 2025-02-05 01:10 | CT Scan Report ---
EXAM: CT chest diagnostic wo con CLINICAL HISTORY: fever, crackles in bilateral bases TECHNIQUE: Contiguous axial CT images of the chest were acquired without administration of intravenous contrast. Coronal and sagittal reconstructions were obtained. One of the following dose reduction techniques were utilized for this exam: Automated exposure control, adjustment of the mA and/or kV according to patient size, use of iterative reconstruction. COMPARISON: Chest xray 01/27/2025 was reviewed. FINDINGS: Lungs: Bilateral reticular and ground-glass opacities in both lungs, predominantly subpleural, with honeycoming in both lower lobes. Mild centrilobular and paraseptal emphysema in both upper lobes. No pulmonary nodules or masses are identified. Small calcified nodule in the right posterior lung base. No pleural effusion or pleural thickening. Mediastinum: Multiple prominent and enlarged mediastinal lymph nodes mesuring up to 1.9 cm in short axis in the right lower paratracheal region. Few small bilateral supraclavicular lymph nodes are also seen. No mediastinal mass. The heart size is within normal limits. Small hiatal hernia. Hilar Structures: The hilar structures appear normal without enlargement or abnormality. No atheromatous calcifications of the aorta or coronary arteries. Trachea and Main Bronchi: The trachea and main bronchi are patent without evidence of obstruction or abnormality. Chest Wall: The chest wall is unremarkable with no evidence of soft tissue or bony abnormalities. Upper Abdomen: Visualized portions of the liver, spleen, adrenal glands, and kidneys are unremarkable. Bones: No evidence of fracture or lytic/sclerotic lesions. Thoracic spondylosis with schmorls nodes. IMPRESSION: No acute pulmonary abnormality. Bilateral reticular and ground-glass opacities in both lungs, predominantly subpleural, with honeycoming in both lower lobes, suggest chronic interstitial lung disease . Mild centrilobular and paraseptal emphysema in both upper lobes. Mediastinal lymphadenopathy, could be reactive. Advised follow-up. Electronically signed by Arik Kelley 02-05-2025 01:10 AM
[2025-02-05] MEDS: MAGNESIUM SULFATE / D5W 1 GM/100 ML BAG IV ONE (01:54)
[2025-02-05] MEDS: HYDROmorphone INJ 0.5 MG/0.5 ML SYR IV STA (03:41)
[2025-02-05] MEDS ORDERED: DEXAMETHASONE SOD INJ 4 MG/ML VIAL IV STA (04:08)
[2025-02-05] MEDS ORDERED: VANCOMYCIN CONSULT ACTIVE PRN (04:09)
[2025-02-05] MEDS: cefTRIAXone SODIUM 2,000 MG/50 ML BAG IV SCH (04:56)
[2025-02-05] MEDS: KETOROLAC TROMETHAMINE 15 MG/ML VIAL IV PRN (05:01)
[2025-02-05 05:08] LABS: Hematocrit (blood only) 36.9 % (42.0-52.0); Hemoglobin 12.1 g/dl (14.0-18.0); Mean Corpuscular Hemoglobin 30.1 pg (25.0-34.0); Mean Corpuscular Volume 91.8 fL (80.0-100.0); Platelet Count 324 K/uL (130-400); RDW Standard Deviation 47.7 fL (36.4-46.3); Red Blood Count 4.02 M/uL (4.70-6.10); White Blood Count 18.25 K/ul (4.8-10.8)
[2025-02-05 05:23] LABS: Alanine Aminotransferase 26.0 U/L (7-52); Alkaline Phosphatase 112.0 U/L (34-104); Anion Gap 8.0 (3-11); Bilirubin,Total 1.2 mg/dl (0.2-1.0); Blood Urea Nitrogen 17.0 mg/dl (6-23); Calcium 8.3 mg/dl (8.6-10.3); Carbon Dioxide 23.0 mmol/L (21-32); Chloride 99.0 mmol/L (98-107); Creatine Kinase 42.0 U/L (30-223); Creatinine Clr Calc Pharmacy 91.5 ml/min; Glucose 111.0 mg/dl (70-99(Fasting)); Potassium 4.9 mmol/L (3.5-5.1); Sodium 130.0 mmol/L (136-145); Total Protein 6.6 gm/dl (6.0-8.3)
[2025-02-05] MEDS: VANCOMYCIN HCL 2,500 MG in SODIUM CHLORIDE 0.9% 500 ML IV ONE (05:25)
[2025-02-05] MEDS: DEXTROSE 5% IV SCH (05:45)
[2025-02-05] MEDS: ACYCLOVIR SOD IV SCH (05:45)
[2025-02-05] MEDS: SERTRALINE HCL 100 MG TABLET PO SCH (08:12)
[2025-02-05] MEDS: FINASTERIDE 5 MG TAB PO SCH (08:12)
[2025-02-05] MEDS: CYCLOBENZAPRINE HCL 10 MG TAB PO PRN (08:12)
[2025-02-05] MEDS ORDERED: APIXABAN 5 MG TABLET PO SCH (09:00)
--- NOTE | 2025-02-05 09:53 | Pharmacy Report ---
Pharmacy PK ABX Note - Date of Service February 05, 2025 - Assessment and Plan Assessment 65 year old M with recent admission to [facility] 01/28-02/01 after presenting with fever, chills, arthralgias, headache, rash and pancytopenia. Patient treated with azithromycin and atovaquone for Babesia during that admission (see ID recs below). Patient returned to ED on 02/04 due to complaints of headache, neck pain and stiffness, vomiting, dry cough, muscle pain, arthralgias of the elbows, shoulders and back. Patient with hypotension, leukocytosis, procal 2.78. He follows with Rheumatology for OA. Broad spectrum antimicrobials, vancomycin + ceftriaxone + acyclovir, have been started for coverage of possible meningitis. Previous regimen for Babesia has been continued. H&P indicates that IR will be consulted for LP. ID Recommendations (from previous admission, 01/30/23): - Continue atovaquone 750 mg PO BID + azithromycin 500 mg IV daily (can change to PO) for possible babesiosis, while awaiting Babesia Ab and PCR. If positive testing or high suspicion, anticipate completing a 7-day course (01/2802/04/25) - Stop ceftriaxone - Doxycycline held given lack of clinical improvement and negative Anaplasma testing, though would have low threshold to restart and complete a course - F/u: Babesia PCR, parvovirus B19 Ab, CMV Ab, Q fever Ab, HIV RNA, Histo UrAg, Rickettsial panel, HCV Ab, WNV serum IgM and PCR JC, ANCA, RF - Appreciate rheumatology evaluation, including for evaluation of possible Stills disease - Negative HbsAb, non-immunity to hep B, would consider revaccination Plan Vancomycin * Loading dose: 2500 mg IV x 1 * Maintenance dose: 1250 mg IV every 12 hours * Regimen is predicted to achieve target AUC/LAURA of 400-600 mg/L.hr * predicted steady state AUC = 575 * Vanc level ordered for 02/06 @ 1200 Pharmacy will continue to follow and [id number] dose/frequency as necessary. Thank you. Pharmacy has transitioned to AUC monitoring for vancomycin. AUC/LAURA is the preferred PK/PD target and is associated with decreased risk of nephrotoxicity compared to traditional trough targets.
--- NOTE | 2025-02-05 11:41 | Hospitalist Progress Note ---
Date of Service February 05, 2025 Assessment & Plan (1) Sepsis: Plan: Doubtful, considering lack of response to antiviral therapy and antibiotics. (2) Polymyalgia rheumatica: Plan: Possible. Steroid therapy has been initiated. Sedimentation rate is markedly elevated and he has had no response to antiviral and antibiotic therapy. (3) Dyslipidemia: Plan: Stable. Continue current medical management (4) Anxiety: Plan: Stable. Continue current medical management (5) Atrial fibrillation: Plan: Paroxysmal. Continue current medications. He is currently in normal sinus rhythm. Continue Eliquis Plan Hopeful discharge to home tomorrow, February 06, if he improves steroid therapy Admission and Anticipated Discharge Date Admission Date: February 04, 2025 Subjective Alert and oriented. He has been aggressively treated for the possibility of bacterial and viral illness. Unfortunately, he has not improved. However, this may be polymyalgia rheumatica considering his markedly elevated ESR and lack of response to antiviral and antibiotic therapy. Parenteral steroid therapy has been started. IV fluids tapered down. If he improves quickly then he will be discharged tomorrow, February 06, on oral prednisone which can be tapered off by his PCP or casing in line setter. Review of Systems 2 Review of Systems: Constitutionalno fever or chills ENTno blurred vision, no double vision, no epistaxis, no sore throat Respiratoryno cough, no wheezing, no shortness of breath Cardiacno palpitations, no chest pain, no syncope Florencia nausea, vomiting, diarrhea, melena, hematochezia GUno urinary retention, no urinary incontinence, no dysuria, no hematuria Musculoskeletalarthralgia and myalgia and shoulder girdle and pelvic distribution. No palpable tenderness however. No evidence of septic arthritis Skinno bruising, no rashes, no pruritus Neurono isolated weakness, no paresthesia Psychno depression, no anxiety Physical Exam 2 Physical Exam: General-alert and oriented x3. The patient states he feels intermittently feverish HEENT-head atraumatic and normocephalic, pupils equal and reactive to light, extraocular muscles intact Neck-no lymphadenopathy or thyromegaly, trachea midline Chest-clear to auscultation. No rales, wheezing or rhonchi Cardiac-regular rate and rhythm, normal S1 and S2 Abdomen-normal bowel sounds, no hepatosplenomegaly Musculoskeletaldiffuse myalgias and arthralgias in shoulder girdle and pelvic distribution Extremities-no cyanosis, clubbing, or edema Neuro-cranial nerves II through XII intact, motor and sensory function within normal limits, strength symmetrical, no focal deficits Psych-normal affect, normal mood Results & Data Results & Data Vital Signs (Past 12 Hours) Vital Signs Temp Pulse Pulse Resp BP Pulse Ox O2 Del Method 02/05/25 09:09 Room Air 02/05/25 08:00 92 H 02/05/25 07:30 37.2 C 82 16 107/66 92 Room Air 02/05/25 04:59 106/66 02/05/25 03:05 36.5 C 84 18 93/58 L 95 Room Air 02/05/25 01:45 85 02/05/25 01:22 88/50 L 02/05/25 01:20 82/47 L 02/05/25 00:50 Room Air 02/05/25 00:50 36.6 C 84 20 103/66 94 Room Air Laboratory Results 02/05/25 04:30 02/05/25 04:30 PG Care Time/CCT Total # of Minutes Spent Total Time Spent with Patient: Total time spent is greater than 50% in coordination of care (as documented) at patient's floor/unit and/or counseling patient: Coding Level of Care Code 62311 SUB INP/OBS CARE 3/50MIN Diagnoses Sepsis A41.9 Polymyalgia rheumatica M35.3 Dyslipidemia E78.5 Anxiety F41.9 Atrial fibrillation I48.91
[2025-02-05] MEDS: VANCOMYCIN HCL 1,250 MG in SODIUM CHLORIDE 0.9% 250 ML IV SCH (14:07)
[2025-02-05] MEDS ORDERED: methylPREDNISolone 10 mg/mL (For Ped Dose < 7mg) IV SCH (17:00)
[2025-02-06 03:52] VITALS: TEMP 97.7
[2025-02-06 06:02] LABS: Hematocrit (blood only) 29.8 % (42.0-52.0); Hemoglobin 10.0 g/dl (14.0-18.0); Mean Corpuscular Hemoglobin 29.9 pg (25.0-34.0); Mean Corpuscular Volume 89.2 fL (80.0-100.0); Platelet Count 310 K/uL (130-400); RDW Standard Deviation 44.3 fL (36.4-46.3); Red Blood Count 3.34 M/uL (4.70-6.10); White Blood Count 15.48 K/ul (4.8-10.8)
[2025-02-06 06:17] LABS: Anion Gap 5.0 (3-11); Blood Urea Nitrogen 24.0 mg/dl (6-23); Calcium 8.6 mg/dl (8.6-10.3); Carbon Dioxide 25.0 mmol/L (21-32); Chloride 106.0 mmol/L (98-107); Creatinine Clr Calc Pharmacy 100.8 ml/min; Glucose 171.0 mg/dl (70-99(Fasting)); Potassium 4.7 mmol/L (3.5-5.1); Sodium 136.0 mmol/L (136-145)
[2025-02-06 06:24] LABS: Immature Granulocytes # (auto) 0.43 K/uL (0.01-0.20); Immature Granulocytes % (auto) 2.8 %; RBC Morphology Unremarkable
[2025-02-06] MEDS: predniSONE 20 MG TAB PO SCH (08:28)
[2025-02-06 11:03] VITALS: BP 115/63; PULSE 96; RESP 18; O2SAT 92
--- NOTE | 2025-02-06 13:05 | Discharge Summary ---
Discharge Summary Date of Service February 06, 2025 Principal Dx & Hospital Course #1 = Principal Diagnosis (1) Sepsis: Ruled out (2) Polymyalgia rheumatica: Current symptoms appear to be due to stills disease rather than PMR. Dramatic response to parenteral steroids. He has been switched to oral prednisone 40 mg daily going forward. 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 José Rivera, in the office on February 11. Sedimentation rate is markedly elevated and he has had no response to antiviral, antimalarial and antibiotic therapy. (3) Dyslipidemia: Stable. Continue current medical management (4) Anxiety: Stable. Continue current medical management (5) Atrial fibrillation: Paroxysmal. Continue current medications. He is currently in normal sinus rhythm. Continue Eliquis Plan Home today, February 06, on prednisone 40 mg daily. Will follow-up with his endless track vehicle mechanic, Dr. José Rivera, in the office on February 11. Admission HPI Per Admitting Provider Jarvis Dc is a pleasant 65yo male with history of atrial fibrillation and BPH presenting with fever/chills/myalgias. Patient was recently admitted to [facility] from 01/28 - 02/01/2025 after presenting with fever, chills, arthralgias, headache, rash and pancytopenia. 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 Patient was discharged home to complete a course of Azithromycin and Atovaquone. He had some swelling of his feet and legs when he returned home which has since resolved. His ulcers in his mouth and lips that were present are now mostly resolved. He reports feeling well from the date of returning home 02/01 until this morning when he had recurrence of fever to 101, fatigue, myalgias and rigors. He took his last dose of antibiotics today. Patient lives alone with his dog who is healthy. 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 He has had tick bites as well as mosquito bites No sick contacts, no recent travel, no recent vaccinations, no recent illness prior to his admission on 01/28. Patient follows with Rheumatology for OA - no history of RA or other rheumatologic disorders He iss complaining of headache, neck pain and stiffness, vomiting, dry cough as well as muscle pain, arthralgias of the elbows, shoulders and pain in the back No additional complaints at this time Blood pressure low upon arrival to the ER at 86/60, improved with IVF Discharge Exam General-alert and oriented x3. The patient states he feels intermittently feverish HEENT-head atraumatic and normocephalic, pupils equal and reactive to light, extraocular muscles intact Neck-no lymphadenopathy or thyromegaly, trachea midline Chest-clear to auscultation. No rales, wheezing or rhonchi Cardiac-regular rate and rhythm, normal S1 and S2 Abdomen-normal bowel sounds, no hepatosplenomegaly Musculoskeletaldiffuse myalgias and arthralgias have completely resolved. Extremities-no cyanosis, clubbing, or edema SkinFlushing in the facial area and upper chest from parenteral steroid therapy which is expected to resolve Neuro-cranial nerves II through XII intact, motor and sensory function within normal limits, strength symmetrical, no focal deficits Psych-normal affect, normal mood Discharge Plan Discharge Items Patient Disposition: Home - Self-Care Reason For Visit: FEVER,HYPOTENSION Discharge Diagnosis: Stills disease Condition on Discharge: Good Activity: Resume your previous activity Non-emergency contact: Primary Care Provider Call non-emergency contact if: you have any medication questions and your symptoms worsen Follow-up/Referrals: PCP,NO [Primary Care Provider] - Diet: Regular and Heart Healthy Addtl Attending Provider Instructions: Take prednisone 40 mg once daily. See Dr. Rivera, rheumatology, in the office on February 11 at 10:30 AM. Pending Studies at Discharge: No Stand-Alone Forms: My [employer], Smoking Cessation Medications and DC Order Prescriptions: New prednisone 20 mg tablet 40 mg PO DAILY Qty: 60 0RF Continued sertraline [Zoloft] 100 mg tablet 100 mg PO DAILY cyclobenzaprine 10 mg tablet 10 mg PO DAILY PRN (Reason: muscle spasm, pain) Qty: 90 0RF oxycodone 5 mg tablet 5 mg PO Q6H PRN (Reason: pain) Qty: 15 0RF albuterol sulfate 90 mcg/actuation HFA aerosol inhaler 2 puff INHALATION QID PRN (Reason: Wheezing) finasteride 5 mg tablet 5 mg PO DAILY Eliquis 5 mg tablet 5 mg PO BID Qty: 60 0RF Discontinued valacyclovir 500 mg Tablet 1,000 mg PO BID 6 Days Qty: 24 0RF Discharge Orders: Discharge Order (Routine); Ordered 07/25/25 Ordered By: Stephan Jacinto Admission Data Admit Date/Time: 02/04/25 22:59 Attending Provider: Stephan Jacinto Admit Provider: Sofi Teran Primary Care Provider: PCP,NO Other Providers: Sofi Teran Hospital Stay Data Consultations 02/04/25 22:19 ED Decision to Admit Stat Diagnostic Imagining Performed 02/04/25 22:59 CT chest diagnostic wo con Urgent Pending Results Patient Have Any Pending Studies at Discharge: No Discharge Instructions Given to Patient (Per Discharging Provider) Take prednisone 40 mg once daily. See Dr. Rivera, rheumatology, in the office on February 11 at 10:30 AM. Total Time Total Time Spent Total Time Spent (In Minutes): 45-minute Coding Level of Care Code 16398 INP/OBS DISCH >30 MIN Diagnoses Sepsis A41.9 Polymyalgia rheumatica M35.3 Dyslipidemia E78.5 Anxiety F41.9 Atrial fibrillation I48.91
--- NOTE | 2025-02-07 05:58 | Electrocardiogram Report ---
Test Reason : Blood Pressure : */* mmHG Vent. Rate : 109 BPM Atrial Rate : 109 BPM P-R Int : 178 ms QRS Dur : 86 ms QT Int : 320 ms P-R-T Axes : 48 -11 38 degrees QTcB Int : 430 ms Sinus tachycardia Cannot rule out Anterior infarct , age undetermined Abnormal ECG When compared with ECG of 29-Jan-2025 08:16, Sinus rhythm has replaced Atrial fibrillation Nonspecific T wave abnormality, improved in Inferior leads Confirmed by Braxton Sparks ([id number]) on 02/07/2025 5:57:47 AM Referred By: REFERRED SELF Confirmed By: Braxton Sparks
[2025-02-10 07:20] LABS: A calco-baum cmplx NotReported Not Detected (NotDetected); Bact fragilis Not Reported Not Detected (NotDetected); Blood Culture Id Panel PCR Panel Negative (NotDetected); C auris Not Reported Not Detected (NotDetected); Calbicans Not Reported Not Detected (NotDetected); Candida glabrata Not Reported Not Detected (NotDetected); Candida krusei Not Reported Not Detected (NotDetected); Cneoformans/gatti Not Reported Not Detected (NotDetected); Cparapsilosis Not Reported Not Detected (NotDetected); Ctropicalis Not Reported Not Detected (NotDetected); E cloacae compx Not Reported Not Detected (NotDetected); Efaecalis Not Reported Not Detected (NotDetected); Efaecium Not Reported Not Detected (NotDetected); Enterobacterales Not Reported Not Detected (NotDetected); Escherichia coli Not Reported Not Detected (NotDetected); H influenzae Not Reported Not Detected (NotDetected); K aerogenes Not Reported Not Detected (NotDetected); Koxytoca Not Reported Not Detected (NotDetected); Kpneumoniae grp Not Reported Not Detected (NotDetected); Lmonocyt Not Reported Not Detected (NotDetected); N meningitidis Not Reported Not Detected (NotDetected); P aeruginosa Not Reported Not Detected (NotDetected); Proteus spp Not Reported Not Detected (NotDetected); Salmonella spp Not Reported Not Detected (NotDetected); Staph lugdunensis Not Reported Not Detected (NotDetected); Staph spp. Not Reported Not Detected (NotDetected); Staphaureus Not Reported Not Detected (NotDetected); Staphepi Not Reported Not Detected (NotDetected); Stenmaltophilia Not Reported Not Detected (NotDetected); Strep agal(GrpB) Not Reported Not Detected (NotDetected); Strep pneum Not Reported Not Detected (NotDetected); Strep pyog (GrpA) Not Reported Not Detected (NotDetected); Strep spp Not Reported Not Detected (NotDetected)
== END 2025-02-06 13:58 | disposition home or self-care (01) | DRG 547 ==
LOC: ED 19:49 → SUATTDRO 22:59 → 2S 22:59